=== PATIENT | male | born 1960 | race Caucasian/White ===

== ENCOUNTER 2020-12-16 17:32 | Inpatient (IN) ==
--- NOTE | 2020-12-16 17:48 | Emergency Department Note ---
Impression & Plan Sepsis, Cellulitis, Acute hypokalemia, Hyponatremia ED Provider Note NAME: ANNA FLETCHER AGE: 60 SEX: M : 1960 ARRIVES VIA: Walk-In INFORMANT: Patient, ED PROVIDER(S): Gilberto Dunn MD Chief Complaint: Rash HPI: Patient does present with a leg rash which is been ongoing but somewhat intermittent since the beginning of the year. The patient has noticed some pain but was concerned as it had been persistent. The patient does have a power of personal injury attorney who is present. The patient has no known medical history but does have history of intellectual disability. Patient states he was applying Arora butter to the area but without much improvement in symptoms. The patient does occasionally take aspirin for discomfort. The patient denies any recent falls or trauma. Patient denies any fevers or chills. The patient denies any itchiness or changes in creams detergents or other items that he thinks would be causing an allergic reaction. Patient has no shortness of breath or chest pains. Patient does feel as though the left leg is slightly bigger than the right. The patient denies any history of DVT or PE. ROS: See HPI for pertinent positives and negatives. A total of 10 systems were reviewed and otherwise negative. Past medical history: See below Surgical history: See below Social history: See below Physical Exam: GENERAL: Mildly ill in appearance, wearing a mask. EYE EXAM: Normal conjunctiva. PERRL, no anisocoria and EOM's grossly intact w/o pain. NECK: Supple, no nuchal rigidity, no adenopathy, non-tender. No signs of meningismus. LUNGS: Clear to auscultation. Normal chest wall mechanics. HEART: Tachycardic and regular, systolic ejection murmur noted. ABDOMEN: Abdomen soft, non-tender, normo-active bowel sounds, no masses, no rebound or guarding. BACK: No CVA TTP. SKIN: Rash as noted below. UPPER EXTREMITIES: Upper extremities are grossly normal. LOWER EXTREMITIES: Left greater than right lower extremity edema with large area of erythematous rash over the lateral aspect of the left leg, blanches, no crepitus or blistering. Significant scaling of the bilateral lower extremities NEURO EXAM: A&O x3, cranial nerves II-XII grossly intact, normal speech, moves all 4 extremities on command w/o issue. Differential diagnoses: Cellulitis, abscess, MRSA infection, DVT, necrotizing fasciitis, dermatitis, drug eruption, allergic reaction, as well as other pathologies. Course: Patient was seen and evaluated the bedside. Full history physical exam was performed. Imaging Studies: Chest X-Ray 12/16/20 18:10 XR chest 1V portable HISTORY: SEPSIS COMPARISON: Chest 05/13/2007. FINDINGS: No pleural effusions. No pneumothorax. There are low lung volumes. There is mild central pulmonary vascular congestion without overt edema. The h eart is mildly enlarged. A 5 mm nodular density within the left upper lobe likely represents a calcified granuloma given the density. No focal lung consolidations to suggest pneumonia. IMPRESSION: Mild central pulmonary vascular congestion without overt edema. No focal lung consolidations to suggest pneumonia. ACT 112: Negative or not required by law. Electronically signed by: Danis Ortega M.D. 12/16/2020 6:33 PM Venous Doppler Study 12/16/20 18:13 LEFT LOWER EXTREMITY VENOUS DOPPLER HISTORY: Left Leg swelling/redness COMPARISON STUDY: None. FINDINGS: Overall, suboptimal evaluation of the left lower extremity to the patient's body habitus. There is normal compressibility, flow, and augmentation within the visualized left lower extremity deep venous system. Of note, the left anterior tibial vein was not visualized due to the patient's positioning. IMPRESSION: No DVT within the visualized left lower extremity. ACT 112: Negative or not required by law. Electronically signed by: Danis Ortega M.D. 12/16/2020 8:47 PM Cardiac monitoring: An order was placed for continuous cardiac monitoring. The monitor shows a rate of 115 with tachycardic and regular rhythm. MDM: Patient was seen due to concern for rash. The patient did have blood work completed was treated empirically with vancomycin and cefepime and did have a DVT ultrasound. Patient is white count of 16 with virtually normal hemoglobin at 13. The patient's platelet count is unremarkable. Patient's kidney function is unremarkable with mild hypokalemia and hyponatremia. Patient did receive initial 500 cc bolus. Glucose is not grossly elevated but is 127. I did see him slightly elevated 2.7 with elevated bilirubin and AST. The patient does not complain of upper abdominal pain. Procalcitonin is elevated Covid negative. Given the patient's lack of prior medical care and poor outpatient follow-up along with significant rash which has been present for months although acutely worsening and concerning for cellulitis I did speak with the on-call hospitalist Dr. Leong. Patient was admitted to the medicine service. Given the patient's leg swelling with associated pulmonary vascular congestion seen and heart murmur the patient was initially only given 500 cc. Patient subsequently was ordered an additional 500 cc bolus given the patient's elevated lactate. Lactate initially 2.8 and repeat was 2. DVT ultrasound was negative. Past Med/Surg History Social History Smoking Status: Never smoker Feels Safe at Home: Yes Allergies Allergies Allergy/AdvReac Type Severity Reaction Status Date / Time Penicillins Allergy Mild Verified 12/16/20 19:03 valsartan Allergy Unknown Unknown Unverified 12/16/20 19:03 Home Meds Home Medications Medication Instructions Recorded Confirmed No Known Home Medications 12/16/20 12/16/20 Results & Data (ED) Vital Signs Vital Signs - 24 hr 12/16/20 17:37 12/16/20 18:10 12/16/20 18:40 Temperature 35.9 C L Temperature Source Temporal Artery Scan Pulse Rate 128 H Pulse Rate from SpO2 Sensor Respiratory Rate 20 20 Respiratory Effort / Characteristics Non-Labored Spontaneous Non-Labored Spontaneous Respiratory Depth Normal Blood Pressure 164/87 H Blood Pressure Mean 112 Blood Pressure Position Sitting Pulse Oximetry 97 98 96 Oxygen Delivery Method Room Air Room Air Room Air Sepsis Recent Fever Within 48 Hours No Sepsis New/Unexplained Change in Mental Status N/A Sepsis Action Taken by Nursing No Action Required 12/16/20 19:10 12/16/20 19:30 12/16/20 19:31 Temperature Temperature Source Pulse Rate 119 H 117 H Pulse Rate from SpO2 Sensor 120 H 117 H Respiratory Rate 27 H 20 26 H Respiratory Effort / Characteristics Non-Labored Non-Labored Respiratory Depth Blood Pressure 197/122 H 149/121 H Blood Pressure Mean 147 130 Blood Pressure Position Pulse Oximetry 96 98 96 Oxygen Delivery Method Room Air Room Air Sepsis Recent Fever Within 48 Hours Sepsis New/Unexplained Change in Mental Status Sepsis Action Taken by Nursing 12/16/20 20:00 12/16/20 20:30 12/16/20 21:00 Temperature Temperature Source Pulse Rate Pulse Rate from SpO2 Sensor Respiratory Rate 18 20 20 Respiratory Effort / Characteristics Non-Labored Non-Labored Non-Labored Respiratory Depth Blood Pressure Blood Pressure Mean Blood Pressure Position Pulse Oximetry 99 98 99 Oxygen Delivery Method Room Air Room Air Room Air Sepsis Recent Fever Within 48 Hours Sepsis New/Unexplained Change in Mental Status Sepsis Action Taken by [facility] Medications Current Medication List: was personally reviewed by me Laboratory Data Attestation: I reviewed the patient's lab results. Result diagrams: 12/16/20 18:46 12/16/20 18:46 Lab Results 12/16/20 12/16/20 12/16/20 Range/Units 18:46 18:46 18:46 WBC 16.09 H (4.8-10.8) K/uL RBC 4.32 L (4.7-6.1) M/uL Hgb 13.3 L (14.0-18.0) g/dL Hct 39.1 L (42-52) % MCV 90.5 (80-100) fL MCH 30.8 (25-34) pg MCHC 34.0 (32-36) g/dL RDW Std Deviation 51.0 H (36.4-46.3) fL RDW Coeff of Analy 15.5 H (11.5-14.5) % Plt Count 203 (130-400) K/uL MPV 10.8 H (7.4-10.4) fL Immature Gran % (Auto) 0.8 % Neut % (Auto) 86.8 % Lymph % (Auto) 7.1 % Morrison % (Auto) 5.0 % Eos % (Auto) 0.1 % Baso % (Auto) 0.2 % Neut # (Auto) 13.97 H (1.4-6.5) K/uL Lymph # (Auto) 1.14 L (1.2-3.4) K/uL Morrison # (Auto) 0.81 H (0.11-0.59) K/uL Eos # (Auto) 0.01 (0-0.5) K/uL Baso # (Auto) 0.03 (0-0.2) K/uL Immature Gran # (Auto) 0.13 H (0.00-0.02) K/uL PT (9.0-12.0) Seconds INR (0.9-1.1) APTT (21.0-31.0) Seconds PTT Ratio Sodium 131 L (136-145) mmol/L Potassium 2.9 L (3.5-5.1) mmol/L Chloride 95 L (98-107) mmol/L Carbon Dioxide 26 (21-32) mmol/L Anion Gap 10.0 (3-11) BUN 15 (7-18) mg/dl Creatinine 0.88 (0.6-1.4) mg/dl Est Cr Clr Drug Dosing Not Reportable Est GFR ( Amer) 108.2 ml/min Est GFR (Non-Af Amer) 93.4 ml/min BUN/Creatinine Ratio 17.6 (10-20) Glucose 127 H (70-99) mg/dl Lactate (0.4-2.0) mmol/L Calcium 9.1 (8.5-10.1) mg/dl Magnesium 2.7 H (1.8-2.4) mg/dl Total Bilirubin 1.4 H (0.2-1) mg/dl AST 55 H (15-37) U/L ALT 48 (12-78) U/L Alkaline Phosphatase 97 (45-117) U/L Troponin I < 0.015 (0-0.045) ng/ml Total Protein 8.2 (6.4-8.2) gm/dl Albumin 2.9 L (3.4-5.0) gm/dl Globulin 5.3 H (2.5-4.0) gm/dl Albumin/Globulin Ratio 0.5 L (0.9-2) Procalcitonin 2.30 H (0-0.5) ng/ml COVID-19 Eval Order SARS-CoV-2 (PCR) (Negative) 12/16/20 12/16/20 12/16/20 Range/Units 18:46 18:46 19:18 WBC (4.8-10.8) K/uL RBC (4.7-6.1) M/uL Hgb (14.0-18.0) g/dL Hct (42-52) % MCV (80-100) fL MCH (25-34) pg MCHC (32-36) g/dL RDW Std Deviation (36.4-46.3) fL RDW Coeff of Analy (11.5-14.5) % Plt Count (130-400) K/uL MPV (7.4-10.4) fL Immature Gran % (Auto) % Neut % (Auto) % Lymph % (Auto) % Morrison % (Auto) % Eos % (Auto) % Baso % (Auto) % Neut # (Auto) (1.4-6.5) K/uL Lymph # (Auto) (1.2-3.4) K/uL Morrison # (Auto) (0.11-0.59) K/uL Eos # (Auto) (0-0.5) K/uL Baso # (Auto) (0-0.2) K/uL Immature Gran # (Auto) (0.00-0.02) K/uL PT 11.9 (9.0-12.0) Seconds INR 1.2 H (0.9-1.1) APTT 29.3 (21.0-31.0) Seconds PTT Ratio 1.1 Sodium (136-145) mmol/L Potassium (3.5-5.1) mmol/L Chloride (98-107) mmol/L Carbon Dioxide (21-32) mmol/L Anion Gap (3-11) BUN (7-18) mg/dl Creatinine (0.6-1.4) mg/dl Est Cr Clr Drug Dosing Est GFR ( Amer) ml/min Est GFR (Non-Af Amer) ml/min BUN/Creatinine Ratio (10-20) Glucose (70-99) mg/dl Lactate 2.8 H* (0.4-2.0) mmol/L Calcium (8.5-10.1) mg/dl Magnesium (1.8-2.4) mg/dl Total Bilirubin (0.2-1) mg/dl AST (15-37) U/L ALT (12-78) U/L Alkaline Phosphatase (45-117) U/L Troponin I (0-0.045) ng/ml Total Protein (6.4-8.2) gm/dl Albumin (3.4-5.0) gm/dl Globulin (2.5-4.0) gm/dl Albumin/Globulin Ratio (0.9-2) Procalcitonin (0-0.5) ng/ml COVID-19 Eval Order Covid19 at [facility] SARS-CoV-2 (PCR) (Negative) 12/16/20 12/16/20 Range/Units 19:18 21:08 WBC (4.8-10.8) K/uL RBC (4.7-6.1) M/uL Hgb (14.0-18.0) g/dL Hct (42-52) % MCV (80-100) fL MCH (25-34) pg MCHC (32-36) g/dL RDW Std Deviation (36.4-46.3) fL RDW Coeff of Analy (11.5-14.5) % Plt Count (130-400) K/uL MPV (7.4-10.4) fL Immature Gran % (Auto) % Neut % (Auto) % Lymph % (Auto) % Morrison % (Auto) % Eos % (Auto) % Baso % (Auto) % Neut # (Auto) (1.4-6.5) K/uL Lymph # (Auto) (1.2-3.4) K/uL Morrison # (Auto) (0.11-0.59) K/uL Eos # (Auto) (0-0.5) K/uL Baso # (Auto) (0-0.2) K/uL Immature Gran # (Auto) (0.00-0.02) K/uL PT (9.0-12.0) Seconds INR (0.9-1.1) APTT (21.0-31.0) Seconds PTT Ratio Sodium (136-145) mmol/L Potassium (3.5-5.1) mmol/L Chloride (98-107) mmol/L Carbon Dioxide (21-32) mmol/L Anion Gap (3-11) BUN (7-18) mg/dl Creatinine (0.6-1.4) mg/dl Est Cr Clr Drug Dosing Est GFR ( Amer) ml/min Est GFR (Non-Af Amer) ml/min BUN/Creatinine Ratio (10-20) Glucose (70-99) mg/dl Lactate 2.0 (0.4-2.0) mmol/L Calcium (8.5-10.1) mg/dl Magnesium (1.8-2.4) mg/dl Total Bilirubin (0.2-1) mg/dl AST (15-37) U/L ALT (12-78) U/L Alkaline Phosphatase (45-117) U/L Troponin I (0-0.045) ng/ml Total Protein (6.4-8.2) gm/dl Albumin (3.4-5.0) gm/dl Globulin (2.5-4.0) gm/dl Albumin/Globulin Ratio (0.9-2) Procalcitonin (0-0.5) ng/ml COVID-19 Eval Order SARS-CoV-2 (PCR) NEGATIVE (Negative) Administered Medications Discontinued Medications Cefepime HCl (Maxipime) 2,000 mg in 20 mls @ 5 mls/min IV NOW STA; Protocol Stop: 12/16/20 18:12 Last Admin: 12/16/20 19:15 Dose: 5 mls/min Documented by: [id number] Vancomycin HCl 2,750 mg/ (Sodium Chloride) 555 mls @ 200 mls/hr IV NOW ONE Stop: 12/16/20 20:55 Last Admin: 12/16/20 19:31 Dose: 200 mls/hr Documented by: [id number] Infusion: 12/16/20 19:31 Dose: 0 mls/hr Documented by: [id number] Admin: 12/16/20 19:30 Dose: 200 mls/hr Documented by: [id number] Sodium Chloride (Nss 1000ml) 500 mls @ 999 mls/hr IV .Q31M ONE Stop: 12/16/20 18:43 Last Infusion: 12/16/20 19:31 Dose: 999 mls/hr Documented by: [id number] Admin: 12/16/20 19:00 Dose: 999 mls/hr Documented by: [id number] Sodium Chloride (Nss 1000ml) 500 mls @ 999 mls/hr IV .Q31M ONE Stop: 12/16/20 20:09 Last Admin: 12/16/20 21:05 Dose: 999 mls/hr Documented by: [id number] Imaging Data Radiologist's Impression: Chest X-Ray 12/16/20 18:10 XR chest 1V portable HISTORY: SEPSIS COMPARISON: Chest 05/13/2007. FINDINGS: No pleural effusions. No pneumothorax. There are low lung volumes. There is mild central pulmonary vascular congestion without overt edema. The hea rt is mildly enlarged. A 5 mm nodular density within the left upper lobe likely represents a calcified granuloma given the density. No focal lung consolidations to suggest pneumonia. IMPRESSION: Mild central pulmonary vascular congestion without overt edema. No focal lung consolidations to suggest pneumonia. ACT 112: Negative or not required by law. Electronically signed by: Danis Ortega M.D. 12/16/2020 6:33 PM Venous Doppler Study 12/16/20 18:13 LEFT LOWER EXTREMITY VENOUS DOPPLER HISTORY: Left Leg swelling/redness COMPARISON STUDY: None. FINDINGS: Overall, suboptimal evaluation of the left lower extremity to the patient's body habitus. There is normal compressibility, flow, and augmentation within the visualized left lower extremity deep venous system. Of note, the left anterior tibial vein was not visualized due to the patient's positioning. IMPRESSION: No DVT within the visualized left lower extremity. ACT 112: Negative or not required by law. Electronically signed by: Danis Ortega M.D. 12/16/2020 8:47 PM Discharge Plan Visit Data Chief Complaint: Swelling/Edema to Extremity Stated Complaint: L & R LEG SWELLING ED Provider: Gilberto Dunn Discharge Problem: Sepsis, Cellulitis, Acute hypokalemia, Hyponatremia Patient Disposition: Admitted As Inpatient Forms [facility] Prescriptions Prescriptions: No Action No Known Home Medications RF: 0 Referrals Referrals: PCP,NO [Primary Care Provider] -
[2020-12-16] MEDS ORDERED: VANCOMYCIN CONSULT ACTIVE PRN (18:09)
[2020-12-16] MEDS ORDERED: CEFEPIME 2,000 MG/20 ML VIAL IV STA (18:09)
[2020-12-16] MEDS ORDERED: SODIUM CHLORIDE 0.9% 1000ML 500 ML IV ONE ×2 (18:13→19:39)
--- NOTE | 2020-12-16 18:34 | XRay Report ---
XR chest 1V portable HISTORY: SEPSIS COMPARISON: Chest 05/13/2007. FINDINGS: No pleural effusions. No pneumothorax. There are low lung volumes. There is mild central pu lmonary vascular congestion without overt edema. The heart is mildly enlarged. A 5 mm nodular density within the left upper lobe likely represents a calcified granuloma given the density. No focal lung consolidations to suggest pneumonia. IMPRESSION: Mild central pulmonary vascular congestion without overt edema. No focal lung consolidations to sugge st pneumonia. ACT 112: Negative or not required by law. Electronically signed by: Danis Ortega M.D. 12/16/2020 6:33 PM
[2020-12-16 18:58] LABS: Basophils # (auto) 0.03 K/uL (0-0.2); Basophils % (auto) 0.2 %; Eosinophils # (auto) 0.01 K/uL (0-0.5); Eosinophils % (auto) 0.1 %; Hematocrit (blood only) 39.1 % (42-52); Hemoglobin 13.3 g/dL (14.0-18.0); Immature Granulocytes # (auto) 0.13 K/uL (0.00-0.02); Immature Granulocytes % (auto) 0.8 %; Lymphocytes # (auto) 1.14 K/uL (1.2-3.4); Lymphocytes % (auto) 7.1 %; Mean Corpuscular Hemoglobin 30.8 pg (25-34); Mean Corpuscular Volume 90.5 fL (80-100); Mean Platelet Volume 10.8 fL (7.4-10.4); Monocytes # (auto) 0.81 K/uL (0.11-0.59); Neutrophils # (auto) 13.97 K/uL (1.4-6.5); Neutrophils % (auto) 86.8 %; Platelet Count 203 K/uL (130-400); RDW Coefficient of Variation 15.5 % (11.5-14.5); Red Blood Count 4.32 M/uL (4.7-6.1); White Blood Count 16.09 K/uL (4.8-10.8)
[2020-12-16 19:09] LABS: INR 1.2 (0.9-1.1); Partial Thromboplastin Ratio 1.1; Partial Thromboplastin Time 29.3 Seconds (21.0-31.0); Prothrombin Time 11.9 Seconds (9.0-12.0)
[2020-12-16 19:15] LABS: Alanine Aminotransferase 48 U/L (12-78); Albumin Level 2.9 gm/dl (3.4-5.0); Aspartate Aminotransferase 55 U/L (15-37); BUN Creatinine Ratio 17.6 (10-20); Blood Urea Nitrogen 15 mg/dl (7-18); Calcium 9.1 mg/dl (8.5-10.1); Carbon Dioxide 26 mmol/L (21-32); Chloride 95 mmol/L (98-107); Est GFR (African American) 108.2 ml/min; Est GFR (Non-African American) 93.4 ml/min; Glucose 127 mg/dl (70-99); Magnesium 2.7 mg/dl (1.8-2.4); Potassium 2.9 mmol/L (3.5-5.1); Sodium 131 mmol/L (136-145)
[2020-12-16 19:20] LABS: Albumin Globulin Ratio 0.5 (0.9-2); Alkaline Phosphatase 97 U/L (45-117); Bilirubin,Total 1.4 mg/dl (0.2-1); Globulin 5.3 gm/dl (2.5-4.0); Total Protein 8.2 gm/dl (6.4-8.2); Troponin I < 0.015 ng/ml (0-0.045)
[2020-12-16] MEDS: VANCOMYCIN HCL 2,750 MG in SODIUM CHLORIDE 0.9% 500 ML IV ONE ×2 (19:30→19:31)
--- NOTE | 2020-12-16 20:49 | Ultrasound Report ---
LEFT LOWER EXTREMITY VENOUS DOPPLER HISTORY: Left Leg swelling/redness COMPARISON STUDY: None. FINDINGS: Overall, suboptimal evaluation of the left lower extremity to the patient's body habitus. T here is normal compressibility, flow, and augmentation within the visualized left lower extremity jailene p venous system. Of note, the left anterior tibial vein was not visualized due to the patient's posit ioning. IMPRESSION: No DVT within the visualized left lower extremity. ACT 112: Negative or not required by law. Electronically signed by: Danis Ortega M.D. 12/16/2020 8:47 PM
[2020-12-16] MEDS ORDERED: POTASSIUM CHLORIDE CRTAB 20 MEQ TABCR PO STA (21:49)
[2020-12-16] MEDS ORDERED: POTASSIUM CHLORIDE / WTR 10 MEQ/100 ML PLCT IV STA (21:49)
[2020-12-16] MEDS ORDERED: LABETALOL HCL IV 5 MG/ML 20ML IV PRN (22:35)
[2020-12-16] MEDS ORDERED: NITROGLYCERIN SL 0.4 MG/TAB TAB SL PRN (22:35)
[2020-12-16] MEDS ORDERED: MEROPENEM CONSULT ACITVE PRN (22:35)
[2020-12-16] MEDS ORDERED: ONDANSETRON INJ 2 MG/ML 2 ML VIAL IV PRN (22:35)
[2020-12-16] MEDS ORDERED: POLYETHYLENE (MIRALAX) 17 GM PACK PO PRN (22:35)
[2020-12-16] MEDS ORDERED: ACETAMINOPHEN 325 MG TAB PO PRN (22:35)
--- NOTE | 2020-12-16 22:51 | History and Physical Report ---
DATE OF ADMISSION: 12/16/2020. CHIEF COMPLAINT: Lower extremity cellulitis and edema. HISTORY OF PRESENT ILLNESS: This is a 60-year-old male with past medical history significant for hypertension, GERD, history of painless jaundice thought to be from biliary strictures, currently not on any medications, supposed to follow up with GI for any abdominal/pancreatic mass, but he never followed up. He lives alone, ambulates okay. Friend is in the room who is the power of corporate attorney. The patient has mild intellectual disabilities, presents with lower extremity edema and erythema and some drainage in the left lower extremity. As per the power of corporate attorney, he was in the grocery store when they called the ambulance and called her, and the patient refused to go at the time the patient went home and she brought him in here. The patient denies any pain, but says some feeling of sunburn in the lower extremity. Resting comfortably. Denies any headache, denies any neck pain. No back pain, no abdominal pain, no chest pain, denies any cough. Denies any fevers. No nausea. Says his bowels are regular. No diarrhea, constipation, or blood in the stools. Normal bladder movements. Denies any blurred visions or earache or runny nose, no sore throat. Says his appetite is okay, he is eating and swallowing okay. No shortness of breath. No smoking, no alcohol as per the power of corporate attorney. ALLERGIES: PENICILLINS, VALSARTAN. PAST MEDICAL HISTORY: As mentioned above. PAST SURGICAL HISTORY: ERCPs, EGD with endoscopic ultrasound, tonsillectomy. MEDICATIONS: Currently none. FAMILY HISTORY: Father had bladder cancer; mother had heart disorder. SOCIAL HISTORY: Currently single. No smoking, no alcohol, no drug use. REVIEW OF SYSTEMS: As per HPI. Rest of the review of systems is negative. PHYSICAL EXAMINATION: GENERAL: The patient is morbidly obese, not in acute distress. VITAL SIGNS: Temperature 35.9, pulse 117, blood pressure 149/121, respiratory rate 20, and oxygen 98% on room air. HEENT: Pupils equal, round and reactive to light. Oral mucosa moist. NECK: No JVD, no neck masses. CARDIOVASCULAR: S1 and S2 heard. Tachycardia. No murmurs, no gallop. RESPIRATORY SYSTEM: Normal AP diameter. No accessory muscle use. No wheezing, no crackles. ABDOMEN: Soft, bowel sounds present, nontender, no distention. CENTRAL NERVOUS SYSTEM: Alert and oriented. Cranial nerves II-XII grossly intact, nonfocal. EXTREMITIES: Bilateral lower extremity gross edema and erythematous changes and chronic skin changes and somewhat foul smelling and long nails seen. LABORATORY DATA: WBC 16.09, hemoglobin 13.3, hematocrit 39.1, platelets 203. PT 11.9, INR 1.2, APTT 29.3. Sodium 131, potassium 2.9, chloride 95,bicarbonate 26, BUN 15, creatinine 0.8, serum glucose 127. Lactate 2, calcium 9.1, magnesium 2.7, total bilirubin 1.4, AST 55, ALT 48, alkaline phosphatase 97. Troponin I less than 0.015. Procalcitonin 2.3. SARS-CoV-2 PCR negative. IMAGING DATA: Venous Doppler, no DVT. Chest x-ray: Mild central pulmonary vascular congestion without overt edema, no focal lung consolidation/pneumonia. ASSESSMENT AND PLAN: This is a 60-year-old male who presents with lower extremity cellulitis and infection. 1. Lower extremity cellulitis and infection: Possible sepsis with leukocytosis and tachycardia Some mild drainage seen. Chronic skin changes possibly from lymphedema. Empirically starting on antibiotics, IV vancomycin and IV meropenem as the patient is allergic to PENICILLINS. Follow the cultures. Gentle fluids. Follow the response. 2. Chronic lower extremity edema: No deep venous thrombosis on ultrasound. We will follow with echocardiogram to rule out any congestive heart failure as the patient has hypertension, not taking any medications. 3. Hypertension: Not taking any medications currently. We will place him on IV labetalol p.r.n. Monitor. Follow echocardiogram. 4. Elevated bilirubin, history of painless jaundice thought to be from biliary strictures: At that time, biopsy was okay .Didn't followed up. We will get a CT of abdomen and pelvis. 5. Hypokalemia: We will replace. 6. Hyponatremia: Will get gentle fluids. Follow the repeat laboratories. 7. Deep venous thrombosis prophylaxis: Placed on Lovenox. DISPOSITION: Closely monitor in the med tele. PT/OT prior to discharge. Social service to help with discharge planning. Level 1 full code. Expect to discharge home and follow with family doctor. Job ID: [id number] [facility]
[2020-12-16] MEDS ORDERED: OPTIRAY 320 125ml IV ONE (23:06)
[2020-12-17] MEDS: ENOXAPARIN INJ 40 MG/0.4 ML SYR SQ SCH ×4 (00:03→21:32)
[2020-12-17] MEDS: SODIUM CHLORIDE 0.9% 1000ML 1,000 ML IV SCH ×2 (00:03→09:39)
[2020-12-17] MEDS: MEROPENEM 500 MG in SYRINGE 0 ML IV SCH ×4 (00:04→17:46)
[2020-12-17] MEDS: POTASSIUM CHLORIDE / WTR 10 MEQ/100 ML PLCT IV SCH ×3 (00:28→02:25)
[2020-12-17] MEDS: DAPTOmycin 625 MG in SYRINGE 0 ML IV SCH (06:29)
[2020-12-17 08:02] LABS: Basophils # (auto) 0.01 K/uL (0-0.2); Basophils % (auto) 0.1 %; Eosinophils # (auto) 0.01 K/uL (0-0.5); Eosinophils % (auto) 0.1 %; Hematocrit (blood only) 36.3 % (42-52); Hemoglobin 12.1 g/dL (14.0-18.0); Immature Granulocytes # (auto) 0.12 K/uL (0.00-0.02); Immature Granulocytes % (auto) 0.9 %; Lymphocytes # (auto) 0.93 K/uL (1.2-3.4); Lymphocytes % (auto) 6.8 %; Mean Corpuscular Hemoglobin 29.9 pg (25-34); Mean Corpuscular Hgb Conc 33.3 g/dL (32-36); Mean Corpuscular Volume 89.6 fL (80-100); Mean Platelet Volume 11.1 fL (7.4-10.4); Monocytes # (auto) 0.61 K/uL (0.11-0.59); Monocytes % (auto) 4.5 %; Neutrophils # (auto) 11.92 K/uL (1.4-6.5); Neutrophils % (auto) 87.6 %; Platelet Count 211 K/uL (130-400); RDW Coefficient of Variation 15.8 % (11.5-14.5); RDW Standard Deviation 50.9 fL (36.4-46.3); Red Blood Count 4.05 M/uL (4.7-6.1)
[2020-12-17] MEDS ORDERED: Nursing to Pharmacy Communication SCH (08:30)
[2020-12-17 08:38] LABS: Albumin Level 2.3 gm/dl (3.4-5.0); BUN Creatinine Ratio 20.9 (10-20); Calcium 8.4 mg/dl (8.5-10.1); Creatinine Clr Calc Pharmacy 178.9 ml/min; Est GFR (African American) 123.3 ml/min; Est GFR (Non-African American) 106.4 ml/min; Magnesium 2.6 mg/dl (1.8-2.4); Potassium 2.9 mmol/L (3.5-5.1)
[2020-12-17 08:49] LABS: Albumin Globulin Ratio 0.5 (0.9-2); Bilirubin,Total 1.1 mg/dl (0.2-1); Globulin 4.5 gm/dl (2.5-4.0); Total Protein 6.8 gm/dl (6.4-8.2)
--- NOTE | 2020-12-17 08:49 | CT Scan Report ---
CT abd pelvis IV con only CLINICAL HISTORY: elevated bilirubin. rule out pancreatic mass COMPARISON STUDY: April 10, 2008 TECHNIQUE: A dose lowering technique was utilized adhering to the principles of ALARA. CT DOSE: 2039.63 mGy.cm FINDINGS: Lower chest: Mild atelectasis is seen at dependent portions of bilateral lower lobes.. Liver: Liver is enlarged with diffuse decrease in attenuation of its parenchyma. No definite focal l esions are seen however evaluation is limited due to beam hardening artifact from patient's body habi tus and close proximity of the right lateral abdominal wall to gantry of the CT SCAN. Mild pneumobilia seen in nondependent/left lobe of the liver. Extension of the gas is seen to the com mon bile duct. Similar pneumobilia was also seen during prior study performed in April 10, 2008. Gallbladder: Is poorly seen, possibly surgically absent. Spleen: Normal in size and attenuation. Pancreas: Unremarkable. Adrenal glands: Unremarkable. Kidneys: There is symmetric renal cortical enhancement. The kidneys are normal in size without hydron ephrosis. Pelvic viscera: Urinary bladder is adequately filled with urine. Prostate gland is not significantly enlarged. Small bilateral fat-containing inguinal hernias are seen. Bowel: Bowel loops are nondilated. Appendix is slightly dilated, measuring 8 mm in diameter and show no evidence of surrounding inflammatory changes. Findings are similar to prior study. Peritoneum: There is no intraperitoneal free air or abdominal ascites. Vasculature: Abdominal aorta is normal in caliber with scattered calcifications of its wall. Adenopathy: Multiple retroperitoneal lymph nodes are seen measuring up to 2.4 cm in diameter (3/291). No significant mesenteric lymphadenopathy seen. There are also prominent inguinal lymph nodes measuring up to 1.7 cm in short axis. Skeletal structures: Mild multilevel degenerative changes of the spine. No definite aggressive osseou s lesions are seen. IMPRESSION: 1. Hepatomegaly and hepatic steatosis. Pneumobilia was also seen during CT of abdomen performed in 2 008. Gallbladder is not definitely seen, could be surgically absent. 2. No pancreatic mass is seen however there are multiple prominent retroperitoneal lymph nodes. Few slightly enlarged inguinal lymph nodes are seen. Above-mentioned findings might be seen in neoplastic process. No definite intra-abdominal mass lesion is demonstrated. 3. Slightly dilated appendix without inflammatory changes, appears similar to prior study in 2007, c ould represent sequela from prior inflammatory process versus other etiology ACT 112: Negative or not required by law. The above report was generated using voice recognition software. It may contain grammatical, syntax o r spelling errors. Electronically signed by: Margoth Mayo DO 12/17/2020 8:47 AM
[2020-12-17] MEDS ORDERED: POTASSIUM CHLORIDE CRTAB 20 MEQ TABCR PO ONE (10:00)
[2020-12-17] MEDS ORDERED: MICONAZOLE NITRATE POWDER 43 GM EXT PRN (11:02)
[2020-12-17 11:25] LABS: Appearance Urine Clear (Clear); Bacteria Urine Automated Negative (Negative); Blood Urine Negative (Negative); Color Urine Dark Yellow; Epithelial Cell Urine Auto 20-30 /lpf (0-5); Glucose Urine UA Negative (Negative); Ketones Urine 2+ (Negative); Leukocyte Esterase Urine Negative (Negative); Nitrite Urine Negative (Negative); Protein Urine 1+ (Negative); RBC Urine Automated 0-4 /hpf (0-4); Specific Gravity Urine 1.024 (1.000-1.030); Urobilinogen Urine Negative (Negative); pH Urine 5.5 (4.5-7.5)
[2020-12-17 11:40] LABS: Bilirubin Urine 1+ (Negative)
[2020-12-17] MEDS ORDERED: ENOXAPARIN INJ 40 MG/0.4 ML SYR SQ SCH (12:00)
--- NOTE | 2020-12-17 15:26 | Hospitalist Progress Note ---
Date of Service December 17, 2020 Assessment & Plan (1) Cellulitis: Plan: ASSESSMENT AND PLAN: This is a 60-year-old male who presents with lower extremity cellulitis and infection. 1. Lower extremity cellulitis and infection: -- Possible sepsis with leukocytosis and tachycardia -- Chronic skin changes possibly from lymphedema. --Lactic acid normalized DC IV fluids in light of suspicion for valvular CHF --Follow-up blood culture and wound culture --Continue IV vancomycin and imipenem Start Lasix 40 mg IV daily Caution with diuresis secondary to possible valvular CHF although echocardiogram was technically limited study EF 60 to 65% 2. Chronic lower extremity edema: No deep venous thrombosis on ultrasound. Possible valvular CHF --Patient has grade 2 through 3 holosystolic murmur Echocardiogram technically limited study, EF 60 to 65% --Lasix 40 mg IV daily started 3. Hypertension: Not taking any medications currently. --As needed IV labetalol 4. Elevated bilirubin, history of painless jaundice thought to be from biliary strictures -- CT abdomen: 1. Hepatomegaly and hepatic steatosis. Pneumobilia was also seen during CT of abdomen performed in 2007. Gallbladder is not definitely seen, could be surgically absent. 2. No pancreatic mass is seen however there are multiple prominent retroperitoneal lymph nodes. Few slightly enlarged inguinal lymph nodes are seen. Above-mentioned findings might be seen in neoplastic process. No definite intra-abdominal mass lesion is demonstrated. 3. Slightly dilated appendix without inflammatory changes, appears similar to prior study in 2008, could represent sequela from prior inflammatory process versus other etiology -- bilirubin, AST improving -- will consult hematology 5. Hypokalemia: -- PO K 40meq BID 6. Hyponatremia: -- resolved dc IV NSS 7. Deep venous thrombosis prophylaxis: Placed on Lovenox. Disposition pending lives alone may need Rehab, SNF Admission and Anticipated Discharge Date Admission Date: December 16, 2020 Subjective Follow-up for bilateral lower extremity edema, cellulitis, etc. Seen resting in bedside chair, not in distress, comfortable States leg pain is improving Denies fevers or chills No shortness of breath, palpitations, dizziness next No other symptoms Review of Systems Review of Systems: all noted and negative except for above Physical Exam Physical Exam: General- oriented x 3, not in distress, speaks in sentences with no effort or accessory muscle use Morbidly obese Head- atraumatic Eyes- PERRL, EOMI, anicteric ENT- oropharynx clear Neck- supple, no JVD, no adenopathy, no thyromegaly; carotids +2/2, no bruits appreciated Lungs- clear to auscultation bilaterally, no rales/wheezes Heart- normal rate, regular rhythm; positive grade 2 through 3 holosystolic murmur, no gallop, no rub appreciated Abdomen- normal bowel sounds, nondistended, soft, nontender, no masses or hepatosplenomegaly Extremities-positive significant bilateral lower extremity edema with erythema and warmth, left greater than the right, no calf tenderness; peripheral pulses intact Neuro- alert, oriented x 3; CN 2-12 grossly intact; motor 5/5 bilaterally;sensation 100% on all extremities; no other gross focal neurologic deficits Skin- warm & dry Results & Data Results & Data ([facility]) Vital Signs (Past 12 Hours) Vital Signs Temp Pulse Pulse Resp BP BP Pulse Ox 12/17/20 15:00 37.0 C 104 H 22 138/96 94 12/17/20 14:19 98 H 12/17/20 11:50 36.4 C L 105 H 22 156/83 H 96 12/17/20 07:26 105 H 12/17/20 07:00 37.1 C 95 H 20 130/77 90 all noted and reviewed including below (1) Cellulitis Laterality: left Site of cellulitis: extremity Site of cellulitis of extremity: lower extremity Qualified Code(s): L03.116 - Cellulitis of left lower limb
[2020-12-17] MEDS: POTASSIUM CHLORIDE CRTAB 20 MEQ TABCR PO SCH (16:24)
[2020-12-17] MEDS: FUROSEMIDE 40 MG in SYRINGE 0 ML IV SCH (16:49)
[2020-12-17] MEDS ORDERED: FUROSEMIDE 40 MG in SYRINGE 0 ML IV SCH (17:00)
[2020-12-18] MEDS: MEROPENEM 500 MG in SYRINGE 0 ML IV SCH ×4 (00:58→17:17)
[2020-12-18] MEDS: DAPTOmycin 625 MG in SYRINGE 0 ML IV SCH (05:14)
--- NOTE | 2020-12-18 05:34 | Electrocardiogram Report ---
Test Reason : Blood Pressure : / mmHG Vent. Rate : 121 BPM Atrial Rate : 121 BPM P-R Int : 170 ms QRS Dur : 084 ms QT Int : 320 ms P-R-T Axes : 078 023 088 degrees QTc Int : 454 ms Sinus tachycardia Nonspecific ST and T wave abnormality Abnormal ECG When compared with ECG of 13-MAY-2007 18:03, Vent. rate has increased BY 42 BPM Minimal criteria for Septal infarct are no longer Present ST now depressed in Lateral leads T wave inversion now evident in Lateral leads Confirmed by Manny Jones ([id number]) on 12/18/2020 5:34:14 AM Referred By: REFERRED SELF Confirmed By:Manny Jones
[2020-12-18 06:52] LABS: Basophils # (auto) 0.04 K/uL (0-0.2); Basophils % (auto) 0.4 %; Eosinophils # (auto) 0.09 K/uL (0-0.5); Eosinophils % (auto) 0.9 %; Hematocrit (blood only) 38.7 % (42-52); Hemoglobin 12.9 g/dL (14.0-18.0); Immature Granulocytes # (auto) 0.25 K/uL (0.00-0.02); Immature Granulocytes % (auto) 2.4 %; Lymphocytes # (auto) 1.46 K/uL (1.2-3.4); Lymphocytes % (auto) 13.8 %; Mean Corpuscular Hemoglobin 30.2 pg (25-34); Mean Corpuscular Hgb Conc 33.3 g/dL (32-36); Mean Corpuscular Volume 90.6 fL (80-100); Mean Platelet Volume 11.2 fL (7.4-10.4); Monocytes # (auto) 0.59 K/uL (0.11-0.59); Monocytes % (auto) 5.6 %; Neutrophils # (auto) 8.13 K/uL (1.4-6.5); Neutrophils % (auto) 76.9 %; Platelet Count 270 K/uL (130-400); RDW Coefficient of Variation 16.3 % (11.5-14.5); RDW Standard Deviation 53.3 fL (36.4-46.3); Red Blood Count 4.27 M/uL (4.7-6.1); White Blood Count 10.56 K/uL (4.8-10.8)
[2020-12-18 07:28] LABS: BUN Creatinine Ratio 23.1 (10-20); Calcium 8.6 mg/dl (8.5-10.1); Creatinine Clr Calc Pharmacy 146.7 ml/min; Est GFR (African American) 114.3 ml/min; Est GFR (Non-African American) 98.6 ml/min; Potassium 2.9 mmol/L (3.5-5.1)
[2020-12-18] MEDS: FUROSEMIDE 40 MG in SYRINGE 0 ML IV SCH (08:49)
[2020-12-18] MEDS: POTASSIUM CHLORIDE CRTAB 20 MEQ TABCR PO SCH ×3 (08:49→20:47)
[2020-12-18] MEDS: AMMONIUM LACTATE 12% LOTION 225 GM BTL EXT SCH ×2 (08:51→20:47)
[2020-12-18] MEDS: ENOXAPARIN INJ 40 MG/0.4 ML SYR SQ SCH ×2 (10:05→22:16)
--- NOTE | 2020-12-18 10:34 | Consultation Report ---
MEDICAL ONCOLOGY CONSULTATION DATE OF SERVICE: 12/18/2020 REASON FOR CONSULTATION: Retroperitoneal lymphadenopathy seen on CT scan. HISTORY OF PRESENT ILLNESS: Mr. Lam is a morbidly obese, intellectually challenged 60-year-old who was admitted to [facility] on 12/16/2020. The patient himself is not very com municative, has difficulty with putting words together and clearly unable to provide a comprehensive history. What he does relate is his left lower extremity was painful and swollen. He described it a s felt a sunburn-like sensation. Apparently, he lives alone, has a friend who is his medical power o f commercial attorney. The patient apparently was in a grocery store when he had voiced these concerns with his medical power of commercial attorney who tried to get him to go to hospital; however, the patient refused to go . The patient subsequently went home and on the insistence of the medical POA was brought back to [facility] for evaluation and management. He is currently on vancomycin obviously. Radiographic studies, particularly CT scan of the abdomen and pelvis revealed hepatomegaly and hepati c steatosis. No pancreatic mass was seen. However, there were multiple prominent retroperitoneal ly mph nodes, few slightly enlarged inguinal lymph nodes as seen. Generally speaking, Mr. Lam den ies B symptoms, particularly denies lack of appetite and again is a pickwickian by body habitus. PAST MEDICAL HISTORY: Significant for hypertension and gastroesophageal reflux, painless jaundice -- thought to be attributable to biliary strictures. PAST SURGICAL HISTORY: ERCP, EGD with endoscopic ultrasound and tonsillectomy. MEDICATIONS: None. ALLERGIES: PENICILLINS AND VALSARTAN. SOCIAL HISTORY: The patient apparently lives with another individual. He is single. Negative for c igarettes, alcohol, or illicit drug use. FAMILY HISTORY: Father with bladder cancer. Mother apparently suffers from heart disease. REVIEW OF SYSTEMS: Really unobtainable. The patient relates his lower extremity pain more so on the left, preliminary diagnosis of cellulitis, currently on antibiotics. PHYSICAL EXAMINATION: GENERAL: Again, jose angel, a 60-year-old gentleman, awake, alert, in no acute distress. VITAL SIGNS: Temperature 36.7, pulse 107, respiratory rate 22, blood pressure 121/82. SKIN: Stasis dermatitis changes in the lower extremities from the knee to the ankle. Slightly more e rythema on the left greater than right. HEENT: Atraumatic, normocephalic. Nares patent without rhinorrhea or discharge. Throat is clear. Tongue midline. Mucous membranes are intact. NECK: Supple. HEART: Regular rate and rhythm. LUNGS: Clear to auscultation bilaterally. ABDOMEN: Obese, soft, nontender, nondistended. No rigidity or guarding. EXTREMITIES: 1-2+ peripheral edema. Again, stasis dermatitis changes in bilateral lower extremities . NEUROLOGIC: He is awake, alert and oriented. LABORATORY DATA: WBC count 10,560, hemoglobin 12.9, platelet count 270,000. Magnesium 2.6, bilirubi n 1.1, AST 40, albumin 2.3. IMPRESSION: 1. Left lower extremity cellulitis. 2. Retroperitoneal lymphadenopathy, etiology unclear. 3. Chronic lower extremity edema. 4. Hypertension. PLAN: Mr. Lam is a very pleasant, pickwickian 60-year-old gentleman who was admitted a couple of days ago with presumed cellulitis. He continues on vancomycin per the hospitalist service. There was some mention of possible pancreatic mass on admission; however, CT scan of the abdomen and pelvi s failed to reveal such mass; however, there are retroperitoneal lymph nodes, which are unexplained. Upon inquiry, Mr. Lam other than his lower extremity issue does not appear to be manifesting B type symptoms. He has no complaints of pain. No alteration in appetite. Certainly, lymph nodes in this distribution could represent an indolent lymphoproliferative process versus neoplasia. Obviousl y with his comorbid issues and large size, it would be very difficult to proceed with any form of bio psy. Mr. Lam has expressed interest in continued outpatient followup, perhaps a PET scan could be arranged for upon discharge, that I would be happy to review in outpatient followup. That said, even if diagnosis is made, it may be difficult to convince Mr. Lam to receive any form of treat ment. Obviously, we would not need to convene with both patient and his medical power of commercial attorney. I am all in favor of observation for now, let him heal from cellulitis and again would be happy to se e him in the office within a month or so post-discharge. Unsure how much Mr. Lam understands f rom a clinical standpoint and again I would insist his medical power of commercial attorney be present for outpa tient followup. I have nothing further to add at this time. Thank you very much for allowing me to participate in his care. Job ID: [id number]
--- NOTE | 2020-12-18 15:37 | Hospitalist Progress Note ---
Date of Service December 18, 2020 Assessment & Plan (1) Cellulitis: Plan: ASSESSMENT AND PLAN: This is a 60-year-old male who presents with lower extremity cellulitis and infection. 1. Lower extremity cellulitis and infection: -- Possible sepsis with leukocytosis and tachycardia -- Chronic skin changes possibly from lymphedema. --Lactic acid normalized DC IV fluids in light of suspicion for valvular CHF --Follow-up blood culture and wound culture: negative so far --slightly improved --Continue IV vancomycin and imipenem Continue Lasix 40 mg IV daily Caution with diuresis secondary to possible valvular CHF although echocardiogram was technically limited study EF 60 to 65% -- will consult ID 2. Chronic lower extremity edema: No deep venous thrombosis on ultrasound. Possible valvular CHF --Patient has grade 2 through 3 holosystolic murmur Echocardiogram technically limited study, EF 60 to 65% --Lasix 40 mg IV daily started 3. Hypertension: Not taking any medications currently. --As needed IV labetalol 4. Elevated bilirubin, history of painless jaundice thought to be from biliary strictures -- CT abdomen: 1. Hepatomegaly and hepatic steatosis. Pneumobilia was also seen during CT of abdomen performed in 2007. Gallbladder is not definitely seen, could be surgically absent. 2. No pancreatic mass is seen however there are multiple prominent retroperitoneal lymph nodes. Few slightly enlarged inguinal lymph nodes are seen. Above-mentioned findings might be seen in neoplastic process. No definite intra-abdominal mass lesion is demonstrated. 3. Slightly dilated appendix without inflammatory changes, appears similar to prior study in 2008, could represent sequela from prior inflammatory process versus other etiology -- bilirubin, AST improving -- will consult hematology recommend outpatient PET scan as biopsy of the lymph nodes would be difficult at this time - appreciate Dr. Dowling's recommendations 5. Hypokalemia: -- PO K 40meq TID 6. Hyponatremia: -- resolved dc IV NSS 7. Deep venous thrombosis prophylaxis: Placed on Lovenox. Disposition pending lives alone may need Rehab, SNF Admission and Anticipated Discharge Date Admission Date: December 16, 2020 Subjective ff up for leg cellulitis, etc seen resting in bedside chair, comfortable minimal discomfort on the legs no fever/chills no chest pain, dyspnea, palpitations no other symptoms Review of Systems Review of Systems: all noted and negative except for above Physical Exam Physical Exam: General- oriented x 3, not in distress, speaks in sentences with no effort or accessory muscle use Eyes- anicteric Neck- no JVD Lungs- clear BS BL Heart- normal rate, regular rhythm; no murmurs Abdomen- normal bowel sounds, nondistended, soft, nontender Extremities- no pretibial edema, no calf tenderness (+) significant edema BL, (+) erythema L>R- improved slightly Neuro- alert, oriented x 3; no gross focal neurologic deficits Skin- warm & dry Results & Data Results & Data ([facility]) Vital Signs (Past 12 Hours) Vital Signs Temp Pulse Pulse Resp BP BP Pulse Ox 12/18/20 11:32 36.5 C 98 H 16 154/91 H 96 12/18/20 07:35 36.5 C 108 H 18 139/80 96 12/18/20 07:07 102 H all noted and reviewed including below (1) Cellulitis Laterality: left Site of cellulitis: extremity Site of cellulitis of extremity: lower extremity Qualified Code(s): L03.116 - Cellulitis of left lower limb
[2020-12-19] MEDS: MEROPENEM 500 MG in SYRINGE 0 ML IV SCH ×4 (00:18→17:47)
[2020-12-19 06:13] LABS: Basophils # (auto) 0.05 K/uL (0-0.2); Basophils % (auto) 0.5 %; Eosinophils # (auto) 0.27 K/uL (0-0.5); Eosinophils % (auto) 2.7 %; Hematocrit (blood only) 40.9 % (42-52); Hemoglobin 13.4 g/dL (14.0-18.0); Immature Granulocytes # (auto) 0.43 K/uL (0.00-0.02); Immature Granulocytes % (auto) 4.3 %; Lymphocytes # (auto) 1.85 K/uL (1.2-3.4); Lymphocytes % (auto) 18.7 %; Mean Corpuscular Hemoglobin 30.2 pg (25-34); Mean Corpuscular Hgb Conc 32.8 g/dL (32-36); Mean Corpuscular Volume 92.3 fL (80-100); Mean Platelet Volume 11.2 fL (7.4-10.4); Monocytes # (auto) 0.71 K/uL (0.11-0.59); Monocytes % (auto) 7.2 %; Neutrophils % (auto) 66.6 %; Platelet Count 340 K/uL (130-400); RDW Coefficient of Variation 16.2 % (11.5-14.5); Red Blood Count 4.43 M/uL (4.7-6.1); White Blood Count 9.91 K/uL (4.8-10.8)
[2020-12-19] MEDS: DAPTOmycin 625 MG in SYRINGE 0 ML IV SCH (06:17)
[2020-12-19 06:52] LABS: BUN Creatinine Ratio 25.3 (10-20); Calcium 8.6 mg/dl (8.5-10.1); Creatinine Clr Calc Pharmacy 150.4 ml/min; Est GFR (African American) 115.6 ml/min; Est GFR (Non-African American) 99.7 ml/min
[2020-12-19] MEDS: FUROSEMIDE 40 MG in SYRINGE 0 ML IV SCH (08:18)
[2020-12-19] MEDS: AMMONIUM LACTATE 12% LOTION 225 GM BTL EXT SCH ×2 (08:19→21:05)
[2020-12-19] MEDS: ENOXAPARIN INJ 40 MG/0.4 ML SYR SQ SCH ×2 (09:28→21:05)
[2020-12-19] MEDS: POTASSIUM CHLORIDE CRTAB 20 MEQ TABCR PO SCH ×2 (09:47→21:04)
--- NOTE | 2020-12-19 11:18 | Hospitalist Progress Note ---
Date of Service December 19, 2020 Assessment & Plan (1) Cellulitis: Plan: ASSESSMENT AND PLAN: This is a 60-year-old male who presents with lower extremity cellulitis and infection. 1. Lower extremity cellulitis and infection: -- Possible sepsis with leukocytosis and tachycardia -- Chronic skin changes possibly from lymphedema. --Lactic acid normalized DC IV fluids in light of suspicion for valvular CHF --Follow-up blood culture and wound culture: negative so far --improving gradually --Continue IV vancomycin and imipenem Continue Lasix 40 mg IV daily Caution with diuresis secondary to possible valvular CHF although echocardiogram was technically limited study EF 60 to 65% -- will consult ID 2. Chronic lower extremity edema: No deep venous thrombosis on ultrasound. Possible valvular CHF --Patient has grade 2 through 3 holosystolic murmur Echocardiogram technically limited study, EF 60 to 65% --Lasix 40 mg IV daily started 3. Hypertension: Not taking any medications currently. --As needed IV labetalol 4. Elevated bilirubin, history of painless jaundice thought to be from biliary strictures -- CT abdomen: 1. Hepatomegaly and hepatic steatosis. Pneumobilia was also seen during CT of abdomen performed in 2007. Gallbladder is not definitely seen, could be surgically absent. 2. No pancreatic mass is seen however there are multiple prominent retroperitoneal lymph nodes. Few slightly enlarged inguinal lymph nodes are seen. Above-mentioned findings might be seen in neoplastic process. No definite intra-abdominal mass lesion is demonstrated. 3. Slightly dilated appendix without inflammatory changes, appears similar to prior study in 2008, could represent sequela from prior inflammatory process versus other etiology -- bilirubin, AST improving -- hematology Dr. Dowling consulted: recommend outpatient PET scan as biopsy of the lymph nodes would be difficult at this time - appreciate Dr. Dowling's recommendations 5. Hypokalemia: -- PO K 40meq BID 6. Hyponatremia: -- resolved dc IV NSS 7. Deep venous thrombosis prophylaxis: Placed on Lovenox. Disposition pending lives alone may need Rehab, SNF Admission and Anticipated Discharge Date Admission Date: December 16, 2020 Subjective ff up for leg cellulitis, etc seen resting in bed, comfortable states he feels fine overall leg discomfort improving no fever/chills no chest pain, dyspnea, palpitations, dizziness no other symptoms Review of Systems Review of Systems: all noted and negative except for above Physical Exam Physical Exam: General- oriented x 3, not in distress, speaks in sentences with no effort or accessory muscle use Eyes- anicteric Neck- no JVD Lungs- clear breath sounds bilaterally, no rales/wheezes Heart- normal rate, regular rhythm; no murmurs Abdomen- normal bowel sounds, nondistended, soft, nontender Extremities- grade 2-3 lower leg edema- improving moderate erythema L>R improving Neuro- alert, oriented x 3; no gross focal neurologic deficits Skin- warm & dry Results & Data Results & Data ([facility]) Vital Signs (Past 12 Hours) Vital Signs Temp Pulse Pulse Resp BP BP Pulse Ox 12/19/20 07:41 36.6 C 104 H 18 154/81 H 94 12/19/20 07:09 101 H 12/19/20 03:01 36.8 C 109 H 18 147/78 H 95 12/19/20 00:05 108 H 12/18/20 23:35 36.8 C 109 H 18 123/77 93 all noted and reviewed including below (1) Cellulitis Laterality: left Site of cellulitis: extremity Site of cellulitis of extremity: lower extremity Qualified Code(s): L03.116 - Cellulitis of left lower limb
[2020-12-19] MEDS: ADVANCED PROBIOTIC 1250 MG CAPSULE PO SCH (12:35)
[2020-12-20] MEDS: MEROPENEM 500 MG in SYRINGE 0 ML IV SCH ×4 (00:27→17:22)
[2020-12-20] MEDS: DAPTOmycin 625 MG in SYRINGE 0 ML IV SCH (05:15)
[2020-12-20 07:38] LABS: BUN Creatinine Ratio 24.7 (10-20); Creatinine Clr Calc Pharmacy 149.9 ml/min; Est GFR (African American) 115.6 ml/min; Est GFR (Non-African American) 99.7 ml/min; Potassium 3.4 mmol/L (3.5-5.1)
[2020-12-20] MEDS: POTASSIUM CHLORIDE CRTAB 20 MEQ TABCR PO SCH ×2 (08:38→21:38)
[2020-12-20] MEDS: ADVANCED PROBIOTIC 1250 MG CAPSULE PO SCH (08:39)
[2020-12-20] MEDS: FUROSEMIDE 40 MG in SYRINGE 0 ML IV SCH (08:39)
[2020-12-20] MEDS: AMMONIUM LACTATE 12% LOTION 225 GM BTL EXT SCH ×2 (08:39→20:19)
[2020-12-20] MEDS: ENOXAPARIN INJ 40 MG/0.4 ML SYR SQ SCH ×2 (09:51→21:39)
--- NOTE | 2020-12-20 12:52 | Hospitalist Progress Note ---
Date of Service December 20, 2020 Assessment & Plan (1) Cellulitis: Plan: ASSESSMENT AND PLAN: This is a 60-year-old male who presents with lower extremity cellulitis and infection. 1. Lower extremity cellulitis and infection: -- Possible sepsis with leukocytosis and tachycardia -- Chronic skin changes possibly from lymphedema. --Lactic acid normalized DC IV fluids in light of suspicion for valvular CHF --Follow-up blood culture and wound culture: negative so far -- improving daily --Continue IV vancomycin and imipenem Continue Lasix 40 mg IV daily Caution with diuresis secondary to possible valvular CHF although echocardiogram was technically limited study EF 60 to 65% -- will consult ID, awaiting recommendations 2. Chronic lower extremity edema: No deep venous thrombosis on ultrasound. Possible valvular CHF --Patient has grade 2 through 3 holosystolic murmur Echocardiogram technically limited study, EF 60 to 65% --Lasix 40 mg IV daily started 3. Hypertension: Not taking any medications currently. --As needed IV labetalol 4. Elevated bilirubin, history of painless jaundice thought to be from biliary strictures -- CT abdomen: 1. Hepatomegaly and hepatic steatosis. Pneumobilia was also seen during CT of abdomen performed in 2007. Gallbladder is not definitely seen, could be surgically absent. 2. No pancreatic mass is seen however there are multiple prominent retroperitoneal lymph nodes. Few slightly enlarged inguinal lymph nodes are seen. Above-mentioned findings might be seen in neoplastic process. No definite intra-abdominal mass lesion is demonstrated. 3. Slightly dilated appendix without inflammatory changes, appears similar to prior study in 2008, could represent sequela from prior inflammatory process versus other etiology -- bilirubin, AST improving -- hematology Dr. Dowling consulted: recommend outpatient PET scan as biopsy of the lymph nodes would be difficult at this time - appreciate Dr. Dowling's recommendations 5. Hypokalemia: -- PO K 40meq BID 6. Hyponatremia: -- resolved dc IV NSS 7. Deep venous thrombosis prophylaxis: Placed on Lovenox. Disposition pending lives alone may need Rehab, SNF Admission and Anticipated Discharge Date Admission Date: December 16, 2020 Subjective ff up for cellulitis, etc seen resting in bed, comfortable states he feels ok overall leg continues to feel improved no chest pain, dyspnea, palpitations, dizziness no chills no other symptoms Review of Systems Review of Systems: all noted and negative except for above Physical Exam Physical Exam: General- oriented x 3, not in distress, speaks in sentences with no effort or accessory muscle use Eyes- anicteric Neck- no JVD Lungs- clear BS BL Heart- normal rate, regular rhythm; no murmurs Abdomen- normal bowel sounds, nondistended, soft, nontender Extremities- BL Leg edema- moderate, improving erythema also improving no warmth Neuro- alert, oriented x 3; no gross focal neurologic deficits Skin- warm & dry Results & Data Results & Data ([facility]) Vital Signs (Past 12 Hours) Vital Signs Temp Pulse Pulse Resp BP BP Pulse Ox 12/20/20 11:23 36.5 C 102 H 20 156/80 H 97 12/20/20 07:41 36.5 C 98 H 18 148/96 H 97 12/20/20 07:00 98 H 12/20/20 04:00 36.6 C 103 H 18 129/79 94 (1) Cellulitis Laterality: left Site of cellulitis: extremity Site of cellulitis of extremity: lower extremity Qualified Code(s): L03.116 - Cellulitis of left lower limb
[2020-12-21] MEDS: MEROPENEM 500 MG in SYRINGE 0 ML IV SCH ×4 (00:08→17:37)
[2020-12-21] MEDS: DAPTOmycin 625 MG in SYRINGE 0 ML IV SCH (06:17)
[2020-12-21 06:52] LABS: BUN Creatinine Ratio 25.4 (10-20); Calcium 8.6 mg/dl (8.5-10.1); Creatinine Clr Calc Pharmacy 167.4 ml/min; Est GFR (African American) 121.8 ml/min; Est GFR (Non-African American) 105.1 ml/min; Potassium 3.4 mmol/L (3.5-5.1)
[2020-12-21] MEDS: POTASSIUM CHLORIDE CRTAB 20 MEQ TABCR PO SCH ×3 (09:14→21:09)
[2020-12-21] MEDS: ADVANCED PROBIOTIC 1250 MG CAPSULE PO SCH (09:36)
[2020-12-21] MEDS: FUROSEMIDE 40 MG in SYRINGE 0 ML IV SCH (09:37)
[2020-12-21] MEDS: ENOXAPARIN INJ 40 MG/0.4 ML SYR SQ SCH ×2 (09:37→21:09)
[2020-12-21] MEDS: AMMONIUM LACTATE 12% LOTION 225 GM BTL EXT SCH ×2 (09:40→21:08)
--- NOTE | 2020-12-21 10:57 | Hospitalist Progress Note ---
Date of Service December 21, 2020 Assessment & Plan (1) Cellulitis: Plan: ASSESSMENT AND PLAN: This is a 60-year-old male who presents with lower extremity cellulitis and infection. 1. Lower extremity cellulitis and infection: -- Possible sepsis with leukocytosis and tachycardia -- Chronic skin changes possibly from lymphedema. --Lactic acid normalized DC IV fluids in light of suspicion for valvular CHF --Follow-up blood culture and wound culture: negative so far -- improving daily Tolerating antibiotics and Lasix well --Continue IV daptomycin and meropenem Continue Lasix 40 mg IV daily Caution with diuresis secondary to possible valvular CHF although echocardiogram was technically limited study EF 60 to 65% -- will consult ID, awaiting recommendations 2. Chronic lower extremity edema: No deep venous thrombosis on ultrasound. Possible valvular CHF --Patient has grade 2 through 3 holosystolic murmur Echocardiogram technically limited study, EF 60 to 65% --Lasix 40 mg IV daily started 3. Hypertension: Not taking any medications currently. --As needed IV labetalol 4. Elevated bilirubin, history of painless jaundice thought to be from biliary strictures -- CT abdomen: 1. Hepatomegaly and hepatic steatosis. Pneumobilia was also seen during CT of abdomen performed in 2007. Gallbladder is not definitely seen, could be surgically absent. 2. No pancreatic mass is seen however there are multiple prominent retro peritoneal lymph nodes. Few slightly enlarged inguinal lymph nodes are seen. Above-mentioned findings might be seen in neoplastic process. No definite intra-abdominal mass lesion is demonstrated. 3. Slightly dilated appendix without inflammatory changes, appears similar to prior study in 2008, could represent sequela from prior inflammatory process versus other etiology -- bilirubin, AST improving -- hematology Dr. Dowling consulted: recommend outpatient PET scan as biopsy of the lymph nodes would be difficult at this time - appreciate Dr. Dowling's recommendations 5. Hypokalemia: -- PO K 40meq BID 6. Hyponatremia: -- resolved dc IV NSS 7. Deep venous thrombosis prophylaxis: Placed on Lovenox. Disposition pending lives alone may need Rehab, SNF Admission and Anticipated Discharge Date Admission Date: December 16, 2020 Subjective Follow-up for leg cellulitis, lower extremity edema, etc. Seen resting bedside chair, comfortable, in good spirits, smiling States he continues to feel improved Leg discomfort continues to feel improved No shortness of breath, dyspnea, palpitations, chest pain, dizziness Ambulating better now that the legs are less swollen No other symptom Review of Systems Review of Systems: all noted and negative except for above Physical Exam Physical Exam: General- oriented x 3, not in distress, speaks in sentences with no effort or accessory muscle use Eyes- anicteric Neck- no JVD Lungs- clear breath sounds, no crackles or wheezing bilaterally Heart- normal rate, regular rhythm; no murmurs Abdomen- normal bowel sounds, nondistended, soft, nontender Extremities-bilateral lower extremity significant edema, improving, erythema also improving, no warm Neuro- alert, oriented x 3; no gross focal neurologic deficits Skin- warm & dry Results & Data Results & Data ([facility]) Vital Signs (Past 12 Hours) Vital Signs Temp Pulse Pulse Resp BP BP Pulse Ox 12/21/20 07:34 36.7 C 100 H 18 125/91 96 12/21/20 07:00 101 H 12/21/20 02:42 36.8 C 93 H 18 138/77 95 12/20/20 23:58 99 H 12/20/20 23:11 36.7 C 100 H 18 111/74 95 (1) Cellulitis Laterality: left Site of cellulitis: extremity Site of cellulitis of extremity: lower extremity Qualified Code(s): L03.116 - Cellulitis of left lower limb
[2020-12-22] MEDS: MEROPENEM 500 MG in SYRINGE 0 ML IV SCH ×3 (00:17→12:47)
[2020-12-22] MEDS: DAPTOmycin 625 MG in SYRINGE 0 ML IV SCH (05:26)
[2020-12-22 08:58] LABS: BUN Creatinine Ratio 26.6 (10-20); Calcium 8.8 mg/dl (8.5-10.1); Creatinine Clr Calc Pharmacy 177.5 ml/min; Est GFR (Non-African American) 107.8 ml/min; Potassium 3.6 mmol/L (3.5-5.1)
[2020-12-22] MEDS: FUROSEMIDE 40 MG in SYRINGE 0 ML IV SCH (08:59)
[2020-12-22] MEDS: ADVANCED PROBIOTIC 1250 MG CAPSULE PO SCH (08:59)
[2020-12-22] MEDS: AMMONIUM LACTATE 12% LOTION 225 GM BTL EXT SCH ×2 (08:59→21:11)
[2020-12-22] MEDS: POTASSIUM CHLORIDE CRTAB 20 MEQ TABCR PO SCH ×3 (09:00→21:10)
[2020-12-22] MEDS: ENOXAPARIN INJ 40 MG/0.4 ML SYR SQ SCH ×2 (09:01→21:10)
--- NOTE | 2020-12-22 19:45 | Hospitalist Progress Note ---
Date of Service December 22, 2020 Assessment & Plan (1) Cellulitis: Plan: ASSESSMENT AND PLAN: This is a 60-year-old male who presents with lower extremity cellulitis and infection. 1. Lower extremity cellulitis and infection: -- Chronic skin changes possibly from lymphedema. -- Possible sepsis with leukocytosis and tachycardia -- Lactic acid normalized DC IV fluids in light of suspicion for valvular CHF -- blood culture and wound culture: negative so far -- improving slowly Tolerating antibiotics and Lasix well --Continue IV daptomycin Day 6--> discharged on p.o. doxycycline to complete 14 days total of antibiotics per [facility] ID Continue Lasix 40 mg IV daily --> continue Lasix 40 mg p.o. daily upon discharge with potassium Caution with diuresis secondary to possible valvular CHF although echocardiogram was technically limited study EF 60 to 65% 2. Chronic lower extremity edema: No deep venous thrombosis on ultrasound. Possible valvular CHF --Patient has grade 2 through 3 holosystolic murmur Echocardiogram technically limited study, EF 60 to 65% --Management per #1 3. Hypertension: Not taking any medications currently. --As needed IV labetalol 4. Elevated bilirubin, history of painless jaundice thought to be from biliary strictures -- CT abdomen: 1. Hepatomegaly and hepatic steatosis. Pneumobilia was also seen during CT of abdomen performed in 2007. Gallbladder is not definitely seen, could be surgically absent. 2. No pancreatic mass is seen however there are multiple prominent retroperitoneal lymph nodes. Few slightly enlarged inguinal lymph nodes are seen. Above-mentioned findings might be seen in neoplastic process. No definite intra-abdominal mass lesion is demonstrated. 3. Slightly dilated appendix without inflammatory changes, appears similar to prior study in 2008, could represent sequela from prior inflammatory process versus other etiology -- bilirubin, AST improving -- hematology Dr. Dowling consulted: recommend outpatient PET scan as biopsy of the lymph nodes would be difficult at this time Outpatient follow-up with Dr. Dowling 5. Hypokalemia: -- K 3.6 -- PO K 40meq BID 6. Hyponatremia: -- resolved dc IV NSS 7. Deep venous thrombosis prophylaxis: Placed on Lovenox. Disposition pending lives alone Per case management, discharge to home with home services Admission and Anticipated Discharge Date Admission Date: December 16, 2020 Subjective ff up for lower extremity edema, cellulitis, etc. Seen resting in bed, comfortable, not in distress States he feels fine overall Minimal leg pain No shortness of breath, chest pain, palpitations, dizziness No other symptom Review of Systems Review of Systems: all noted and negative except for above Physical Exam Physical Exam: General- oriented x 3, not in distress, speaks in sentences with no effort or accessory muscle use Eyes- anicteric Neck- no JVD Lungs- clear BS BL no crackles Heart- normal rate, regular rhythm; no murmurs Abdomen- normal bowel sounds, nondistended, soft, nontender Extremities-grade 1 through 2 lower extremity edema, (+) lichenification, erythema improving, no calf tenderness Neuro- alert, oriented x 3; no gross focal neurologic deficits Skin- warm & dry Results & Data Results & Data ([facility]) Vital Signs (Past 12 Hours) Vital Signs Temp Pulse Pulse Resp BP BP Pulse Ox 12/22/20 18:27 36.4 C L 99 H 18 117/70 96 12/22/20 15:32 36.4 C L 109 H 18 131/87 95 12/22/20 15:25 105 H 12/22/20 11:38 36.8 C 116 H 18 130/94 95 12/22/20 07:54 101 H (1) Cellulitis Laterality: left Site of cellulitis: extremity Site of cellulitis of extre mity: lower extremity Qualified Code(s): L03.116 - Cellulitis of left lower limb
[2020-12-23] MEDS: DAPTOmycin 625 MG in SYRINGE 0 ML IV SCH (05:33)
[2020-12-23] MEDS: AMMONIUM LACTATE 12% LOTION 225 GM BTL EXT SCH ×2 (08:16→20:29)
[2020-12-23] MEDS: ADVANCED PROBIOTIC 1250 MG CAPSULE PO SCH (08:16)
[2020-12-23] MEDS: FUROSEMIDE 40 MG in SYRINGE 0 ML IV SCH (08:16)
[2020-12-23] MEDS: POTASSIUM CHLORIDE CRTAB 20 MEQ TABCR PO SCH (08:16)
[2020-12-23 08:49] LABS: BUN Creatinine Ratio 22.5 (10-20); Calcium 8.4 mg/dl (8.5-10.1); Creatinine Clr Calc Pharmacy 157.1 ml/min; Est GFR (African American) 118.9 ml/min; Est GFR (Non-African American) 102.6 ml/min; Potassium 3.6 mmol/L (3.5-5.1)
[2020-12-23] MEDS: ENOXAPARIN INJ 40 MG/0.4 ML SYR SQ SCH ×2 (10:05→20:30)
--- NOTE | 2020-12-23 16:10 | Hospitalist Progress Note ---
Date of Service December 23, 2020 Assessment & Plan (1) Cellulitis: Plan: Patient is a 60 yr male who presents with lower extremity cellulitis and infection. Bilateral Lower extremity cellulitis and infection: Suspected underlying Lymphedema. Possible sepsis -Venous Doppler:No DVT within the visualized left lower extremity. Blood/Wound Cx: Negative Lactic acid normalized with IV fluids Lasix as needed Continue IV daptomycin Day 7 Plan to transition to p.o. doxycycline to complete 14 days Appreciate ID Input Chronic lower extremity edema Venous Doppler: No DVT Possible valvular CHF Echocardiogram technically limited study, EF 60 to 65% Continue Lasix monitor I/Os, daily weight renal function Hypertension: Not taking any medications currently. Monitor Elevated bilirubin H/O Painless jaundice thought to be from biliary strictures Lymphadenopathy CT abdomen: Hepatomegaly and hepatic steatosis. Pneumobilia was also seen during CT of abdomen performed in 2007. Gallbladder is not definitely seen, could be surgically absent. No pancreatic mass is seen however there are multiple prominent retroperitoneal lymph nodes. Few slightly enlarged inguinal lymph nodes are seen. Above-mentioned findings might be seen in neoplastic process. No definite intra-abdominal mass lesion is demonstrated. Slightly dilated appendix without inflammatory changes, appears similar to prior study in 2008, could represent sequela from prior inflammatory process versus other etiology LFTs Improved Appreciate hematology Dr. Dowling Input Needs Outpatient PET scan as biopsy of the lymph nodes would be difficult at this time Needs follow up with Dr. Dowling upon discharge Hypokalemia: Hyponatremia: Replace electrolytes as needed DVT Px: Lovenox SQ Disposition Home with home health Admission and Anticipated Discharge Date Admission Date: December 16, 2020 Subjective Patient is seen and examined at bedside Leg edema slowly improving Denies any leg pain, dizziness, chest pain, shortness of breath, nausea, vomiting, abdominal pain Offers no other complaints Review of Systems Review of Systems: All systems reviewed & are unremarkable except as noted in Subjective Physical Exam Physical Exam: Physical Exam: Vitals signs as noted above General Appearance:Morbidly Obese, no apparent distress Head: normocephalic, Atraumatic Eyes: normal inspection, EOMI Neck: supple, Trachea midline Respiratory/Chest: Normal breath sounds, CTA Cardiovascular: S1, S2, No murmur Abdomen/GI:Soft, Non tender, Bowel sounds present Extremities/Musculoskeletal:normal inspection, B/L LE edema, Lichenification, venous stasis changes Neurologic/Psych:AAOX3, grossly no focal neurological deficits Skin: normal color, warm Results & Data Results & Data ([facility]) Vital Signs (Past 12 Hours) Vital Signs Temp Pulse Pulse Resp BP BP Pulse Ox 12/23/20 15:32 105 H 12/23/20 14:56 36.7 C 106 H 20 131/85 96 12/23/20 13:00 96 H 12/23/20 11:24 36.5 C 103 H 17 131/91 93 12/23/20 07:24 36.4 C L 102 H 17 139/93 95 12/23/20 04:11 36.5 C 95 H 20 160/81 H 95 Laboratory Results [facility] 12/23/20 07:59 Sodium 142 Potassium 3.6 Chloride 107 Carbon Dioxide 29 BUN 16 Creatinine 0.70 Glucose 103 H Calcium 8.4 L (1) Cellulitis Laterality: left Site of cellulitis: extremity Site of cellulitis of extremity: lower extremity Qualified Code(s): L03.116 - Cellulitis of left lower limb
[2020-12-24] MEDS: AMMONIUM LACTATE 12% LOTION 225 GM BTL EXT SCH ×2 (08:13→20:42)
[2020-12-24] MEDS: FUROSEMIDE 40 MG in SYRINGE 0 ML IV SCH (08:13)
[2020-12-24] MEDS: ADVANCED PROBIOTIC 1250 MG CAPSULE PO SCH (08:13)
[2020-12-24] MEDS: lisinopril 5 MG TAB PO SCH (08:44)
[2020-12-24] MEDS: POTASSIUM CHLORIDE CRTAB 20 MEQ TABCR PO SCH (08:44)
[2020-12-24] MEDS: METOPROLOL TARTRATE 50 MG TAB PO SCH ×2 (08:44→20:43)
[2020-12-24 08:51] LABS: BUN Creatinine Ratio 24.4 (10-20); Calcium 8.7 mg/dl (8.5-10.1); Creatinine Clr Calc Pharmacy 153.7 ml/min; Est GFR (African American) 118.9 ml/min; Est GFR (Non-African American) 102.6 ml/min
[2020-12-24] MEDS ORDERED: DAPTOmycin 625 MG in SYRINGE 0 ML IV SCH (09:30)
[2020-12-24 09:37] LABS: Magnesium 1.8 mg/dl (1.8-2.4); Potassium 3.4 mmol/L (3.5-5.1)
[2020-12-24] MEDS: ENOXAPARIN INJ 40 MG/0.4 ML SYR SQ SCH ×2 (10:37→20:43)
--- NOTE | 2020-12-24 17:23 | Hospitalist Progress Note ---
Date of Service December 24, 2020 Assessment & Plan (1) Cellulitis: Plan: Patient is a 60 yr male who presents with lower extremity cellulitis and infection. Bilateral Lower extremity cellulitis and infection: Suspected underlying Lymphedema. Possible sepsis -Venous Doppler:No DVT within the visualized left lower extremity. Blood/Wound Cx: Negative Lactic acid normalized with IV fluids Lasix as needed Received IV daptomycin Day 8 Transition to p.o. doxycycline tomorrow to complete 14 day course Appreciate ID Input Chronic lower extremity edema Venous Doppler: No DVT Possible valvular CHF Echocardiogram technically limited study, EF 60 to 65% Continue Lasix monitor I/Os, daily weight renal function Hypertension: Not taking any medications currently. Started on metoprolol, lisinopril Monitor Elevated bilirubin H/O Painless jaundice thought to be from biliary strictures Lymphadenopathy CT abdomen: Hepatomegaly and hepatic steatosis. Pneumobilia was also seen during CT of abdomen performed in 2007. Gallbladder is not definitely seen, could be surgically absent. No pancreatic mass is seen however there are multiple prominent retroperitoneal lymph nodes. Few slightly enlarged inguinal lymph nodes are seen. Above-mentioned findings might be seen in neoplastic process. No definite intra-abdominal mass lesion is demonstrated. Slightly dilated appendix without inflammatory changes, appears similar to prior study in 2008, could represent sequela from prior inflammatory process versus other etiology LFTs Improved Appreciate hematology Dr. Dowling Input Needs Outpatient PET scan as biopsy of the lymph nodes would be difficult at t his time Needs follow up with Dr. Dowling upon discharge Hypokalemia: Hyponatremia: Replace electrolytes as needed DVT Px: Lovenox SQ Disposition Home with home health Admission and Anticipated Discharge Date Admission Date: December 16, 2020 Subjective Patient is seen and examined at bedside No new complaints Leg edema continues to improve Denies any leg pain, dizziness, chest pain, shortness of breath, nausea, vomiting, abdominal pain Bp elevated today Review of Systems Review of Systems: All systems reviewed & are unremarkable except as noted in Subjective Physical Exam Physical Exam: Physical Exam: Vitals signs as noted above General Appearance:Morbidly Obese, no apparent distress Head: normocephalic, Atraumatic Eyes: normal inspection, EOMI Neck: supple, Trachea midline Respiratory/Chest: Normal breath sounds, CTA Cardiovascular: S1, S2, No murmur Abdomen/GI:Soft, Non tender, Bowel sounds present Extremities/Musculoskeletal:normal inspection, B/L LE edema, Lichenification, venous stasis changes Neurologic/Psych:AAOX3, grossly no focal neurological deficits Skin: normal color, warm Results & Data Results & Data ([facility]) Vital Signs (Past 12 Hours) Vital Signs Temp Pulse Pulse Resp BP BP Pulse Ox 12/24/20 15:31 36.6 C 100 H 20 136/98 96 12/24/20 15:07 90 12/24/20 12:48 36.9 C 98 H 21 144/103 H 94 12/24/20 10:55 102 H 12/24/20 07:53 36.4 C L 104 H 20 163/109 H 96 Laboratory Results BMP 12/24/20 12/24/20 07:18 09:04 Sodium 139 Potassium 3.4 L Chloride 106 Carbon Dioxide 28 BUN 17 Creatinine 0.70 Glucose 101 H Calcium 8.7 (1) Cellulitis Laterality: left Site of cellulitis: extremity Site of cellulitis of extremity: lower extremity Qualified Code(s): L03.116 - Cellulitis of left lower limb
[2020-12-25] MEDS: FUROSEMIDE 40 MG in SYRINGE 0 ML IV SCH (07:32)
[2020-12-25] MEDS: ADVANCED PROBIOTIC 1250 MG CAPSULE PO SCH (07:32)
[2020-12-25] MEDS: ENOXAPARIN INJ 40 MG/0.4 ML SYR SQ SCH (07:33)
[2020-12-25] MEDS: METOPROLOL TARTRATE 50 MG TAB PO SCH (07:33)
[2020-12-25] MEDS: lisinopril 5 MG TAB PO SCH (07:35)
[2020-12-25] MEDS: AMMONIUM LACTATE 12% LOTION 225 GM BTL EXT SCH (07:36)
[2020-12-25 07:54] VITALS: TEMP 97.9
[2020-12-25 08:29] LABS: BUN Creatinine Ratio 23.5 (10-20); Creatinine Clr Calc Pharmacy 127.4 ml/min; Est GFR (African American) 110.3 ml/min; Est GFR (Non-African American) 95.2 ml/min; Magnesium 1.9 mg/dl (1.8-2.4); Potassium 3.1 mmol/L (3.5-5.1)
[2020-12-25] MEDS: POTASSIUM CHLORIDE CRTAB 20 MEQ TABCR PO SCH (09:00)
[2020-12-25] MEDS ORDERED: DOXYCYCLINE HYCLATE 100 MG CAP PO SCH (09:00)
[2020-12-25] MEDS ORDERED: POTASSIUM CHLORIDE CRTAB 20 MEQ TABCR PO SCH (09:45)
[2020-12-25 10:04] VITALS: PULSE 88
[2020-12-25 11:07] VITALS: O2SAT 95
--- NOTE | 2020-12-25 12:07 | Hospitalist Progress Note ---
Date of Service December 25, 2020 Assessment & Plan (1) Cellulitis: Plan: Patient is a 60 yr male who presents with lower extremity cellulitis and infection. Bilateral Lower extremity cellulitis and infection: Suspected underlying Lymphedema. Possible sepsis -Venous Doppler:No DVT within the visualized left lower extremity. Blood/Wound Cx: Negative Lactic acid normalized with IV fluids Lasix as needed Received IV daptomycin Day 8 Transition to p.o. doxycycline today to complete 14 day course Appreciate ID Input Chronic lower extremity edema Venous Doppler: No DVT Possible chronic heart failure with preserved EF Echocardiogram technically limited study, EF 60 to 65% Continue Lasix monitor I/Os, daily weight renal function Hypertension: Not taking any medications currently. Continue metoprolol, lisinopril Monitor Elevated bilirubin H/O Painless jaundice thought to be from biliary strictures Lymphadenopathy CT abdomen: Hepatomegaly and hepatic steatosis. Pneumobilia was also seen during CT of abdomen performed in 2007. Gallbladder is not definitely seen, could be surgically absent. No pancreatic mass is seen however there are multiple prominent retroperitoneal lymph nodes. Few slightly enlarged inguinal lymph nodes are seen. Above-mentioned findings might be seen in neoplastic process. No definite intra-abdominal mass lesion is demonstrated. Slightly dilated appendix without inflammatory changes, appears similar to prior study in 2008, could represent sequela from prior inflammatory process versus other etiology LFTs Improved Appreciate hematology Dr. Dowling Input Needs Outpatient PET scan as biopsy of the lymph nodes would be difficult at this time Needs follow up with Dr. Dowling upon discharge Hypokalemia: chronic as per patient Hyponatremia: Replace electrolytes as needed DVT Px: Lovenox SQ Disposition Home with home health Admission and Anticipated Discharge Date Admission Date: December 16, 2020 Subjective Patient is seen and examined at bedside States feeing well Bp much better today Less Leg edema Denies any leg pain, dizziness, chest pain, shortness of breath, nausea, vomiting, abdominal pain Plan to discharge home today Review of Systems Review of Systems: All systems reviewed & are unremarkable except as noted in Subjective Physical Exam Physical Exam: Physical Exam: Vitals signs as noted above General Appearance:Morbidly Obese, no apparent distress Head: normocephalic, Atraumatic Eyes: normal inspection, EOMI Neck: supple, Trachea midline Respiratory/Chest: Normal breath sounds, CTA Cardiovascular: S1, S2, No murmur Abdomen/GI:Soft, Non tender, Bowel sounds present Extremities/Musculoskeletal:normal inspection, B/L LE edema, Lichenification, venous stasis changes Neurologic/Psych:AAOX3, grossly no focal neurological deficits Skin: normal color, warm Results & Data Results & Data ([facility]) Vital Signs (Past 12 Hours) Vital Signs Temp Pulse Pulse Resp BP BP Pulse Ox 12/25/20 11:05 36.6 C 88 20 127/89 95 12/25/20 10:06 12/25/20 10:03 88 12/25/20 07:53 36.6 C 82 20 136/90 97 12/25/20 04:00 36.7 C 98 H 18 127/87 95 12/25/20 02:19 99 H Pulse Ox 12/25/20 11:05 12/25/20 10:06 97 12/25/20 10:03 12/25/20 07:53 12/25/20 04:00 12/25/20 02:19 Laboratory Results BMP 12/25/20 07:11 Sodium 140 Potassium 3.1 L Chloride 105 Carbon Dioxide 28 BUN 20 H Creatinine 0.84 Glucose 96 Calcium 9.0 (1) Cellulitis Laterality: left Site of cellulitis: extremity Site of cellulitis of extremity: lower extremity Qualified Code(s): L03.116 - Cellulitis of left lower limb
[2020-12-25] MEDS ORDERED: POTASSIUM CHLORIDE CRTAB 20 MEQ TABCR PO ONE (12:12)
--- NOTE | 2020-12-25 12:21 | Discharge Summary ---
Date of Service December 25, 2020 Admission HPI Per Admitting Provider CHIEF COMPLAINT: Lower extremity cellulitis and edema. HISTORY OF PRESENT ILLNESS: This is a 60-year-old male with past medical history significant for hypertension, GERD, history of painless jaundice thought to be from biliary strictures, currently not on any medications, supposed to follow up with GI for any abdominal/pancreatic mass, but he never followed up. He lives alone, ambulates okay. Friend is in the room who is the power of civil rights attorney. The patient has mild intellectual disabilities, presents with lower extremity edema and erythema and some drainage in the left lower extremity. As per the power of civil rights attorney, he was in the grocery store when they called the ambulance and called her, and the patient refused to go at the time the patient went home and she brought him in here. The patient denies any pain, but says some feeling of sunburn in the lower extremity. Resting comfortably. Denies any headache, denies any neck pain. No back pain, no abdominal pain, no chest pain, denies any cough. Denies any fevers. No nausea. Says his bowels are regular. No diarrhea, constipation, or blood in the stools. Normal bladder movements. Denies any blurred visions or earache or runny nose, no sore throat. Says his appetite is okay, he is eating and swallowing okay. No shortness of breath. No smoking, no alcohol as per the power of civil rights attorney. Admission Exam Per Admitting Provider PHYSICAL EXAMINATION: GENERAL: The patient is morbidly obese, not in acute distress. VITAL SIGNS: Temperature 35.9, pulse 117, blood pressure 149/121, respiratory rate 20, and oxygen 98% on room air. HEENT: Pupils equal, round and reactive to light. Oral mucosa moist. NECK: No JVD, no neck masses. CARDIOVASCULAR: S1 and S2 heard. Tachycardia. No murmurs, no gallop. RESPIRATORY SYSTEM: Normal AP diameter. No accessory muscle use. No wheezing, no crackles. ABDOMEN: Soft, bowel sounds present, nontender, no distention. CENTRAL NERVOUS SYSTEM: Alert and oriented. Cranial nerves II-XII grossly intact, nonfocal. EXTREMITIES: Bilateral lower extremity gross edema and erythematous changes and chronic skin changes and somewhat foul smelling and long nails seen. Principal Diagnosis Bilateral Leg Cellulitis Possible chronic heart failure Lymphadenopathy Hypokalemia Discharge Data Allergies Allergy/AdvReac Type Severity Reaction Status Date / Time Penicillins Allergy Mild Verified 12/16/20 19:03 valsartan Allergy Unknown Unknown Unverified 12/16/20 19:03 Consultations 12/16/20 19:39 ED Decision to Admit Stat 12/17/20 15:37 Consult Hematology Routine 12/18/20 15:40 Consult Infectious Diseases Routine Ordered Studies 12/16/20 18:13 US venous doppler LE LT Stat 12/16/20 22:35 CT abd pelvis IV con only Urgent Hospital Course (1) Cellulitis: Patient is a 60 yr male who presents with lower extremity cellulitis and infection. Bilateral Lower extremity cellulitis and infection: Suspected underlying Lymphedema. Possible sepsis -Venous Doppler:No DVT within the visualized left lower extremity. Blood/Wound Cx: Negative Lactic acid normalized with IV fluids Lasix as needed Received IV daptomycin Day 8 Transition to p.o. doxycycline today to complete 14 day course Appreciate ID Input Chronic lower extremity edema Venous Doppler: No DVT Possible chronic heart failure with preserved EF Echocardiogram technically limited study, EF 60 to 65% Continue Lasix monitor I/Os, daily weight renal function Hypertension: Not taking any medications currently. Continue metoprolol, lisinopril Monitor Elevated bilirubin H/O Painless jaundice thought to be from biliary strictures Lymphadenopathy CT abdomen: Hepatomegaly and hepatic steatosis. Pneumobilia was also seen during CT of abdomen performed in 2007. Gallbladder is not definitely seen, could be surgically absent. No pancreatic mass is seen however there are multiple prominent retroperitoneal lymph nodes. Few slightly enlarged inguinal lymph nodes are seen. Above-mentioned findings might be seen in neoplastic process. No definite intra-abdominal mass lesion is demonstrated. Slightly dilated appendix without inflammatory changes, appears similar to prior study in 2008, could represent sequela from prior inflammatory process versus other etiology LFTs Improved Appreciate hematology Dr. Dowling Input Needs Outpatient PET scan as biopsy of the lymph nodes would be difficult at this time Needs follow up with Dr. Dowling upon discharge Hypokalemia: chronic as per patient Hyponatremia: Replace electrolytes as needed DVT Px: Lovenox SQ Disposition Home with home health Total Time Total Time Spent Total Time Spent (In Minutes): 45 minutes Discharge Plan Discharge Items Patient Disposition: Home - Home Health Services Reason For Visit: LOWER EXTREMITY SWELLING Discharge Diagnosis: Bilateral Leg Cellulitis Possible chronic heart failure Lymphadenopathy Hypokalemia Activity: Per Instructions section Exercise/Sports: Gradually increase as tolerated Non-emergency contact: Primary Care Provider, Motorboat Mechanic Helper and Oncologist Call non-emergency contact if: you have any medication questions, your symptoms worsen, your pain is not controlled, your pain is concerning for you and you have a fever Follow-up/Referrals: Monse Pinto MD [Hospitalist] - (Date & Time 12/30/2020 10:00 AM Provider Monse Pinto MD Department [address] [place] [address] General Internal Medicine [facility] ) Diet: Heart Healthy Addtl Attending Provider Instructions: Follow-up with your primary care physician Blair Salvador on 12/30/2020 10:00 AM Follow-up with your oncologist Dr. Dowling for further evaluation of lymphadenopathy as advised. Consider following with your case fitter for evaluation of possible diastolic heart failure. Complete the antibiotic doxycycline as prescribed. Get PET scan as outpatient as recommended by Dr. Dowling for evaluation of lymphadenopathy. Seek immediate medical attention if your symptoms reoccur or worsen Please take all medications as instructed on discharge list below. Please call if you have any questions or problems. You can reach a [facility] hospitalist on duty at [facility] 24 hours a day by calling [phone] Call your Primary Care doctor if any of the following symptoms or problems start or get worse: * Shortness of breath or difficulty breathing * Wake up at night short of breath * Chest pain * Cough * Swelling of your hands, feet, or legs * More fatigued or tired with your normal activity * Palpitations - sudden fast heart beats WEIGHT * Weigh yourself every morning after using the bathroom. * Use the same scale. * Wear the same amount of clothing. * Write your weight down on a chart. * Call your Primary Care doctor if you gain more than 2-3 pounds in 1-2 days. MEDICATIONS * Use this discharge instruction sheet for medication instructions. * Take your medications at the time your doctor ordered. * Do not skip a dose of your medicines. * If you miss a dose of medicine, take it as soon as possible, but DO NOT DOUBLE A DOSE. * Read your medicine information when you get home. * Know all of the side effects of your medicine. If in doubt, ask your pharmacist * Call your Primary Care doctor's office if you have any side effects. * Be sure all of your doctors know what medicine and herbs you take (including cold, flu, and herbal medicine). Take the following with you to your follow-up doctor appointments: * Weight Chart * Medication List * List of questions Do not drink excessive alcohol, beer or wine. Pending Studies at Discharge: No Stand-Alone Forms: My [facility], Smoking Cessation Medications and DC Order Prescriptions: New doxycycline hyclate 100 mg Capsule 100 mg PO BID Qty: 8 RF: 0 lisinopril [Zestril] 5 mg Tablet 5 mg PO QAM Qty: 30 RF: 0 metoprolol tartrate 50 mg Tablet 50 mg PO BID Qty: 60 RF: 0 furosemide 40 mg Tablet 40 mg PO QAM Qty: 30 RF: 0 potassium chloride [Klor-Con M20] 20 mEq Tablet,Er Particles/Crystals 20 meq PO DAILY Qty: 30 RF: 0 Discharge Orders: Discharge Order (Routine); Ordered 12/25/20 Ordered By: Joaquín Herrera Admission Data Admit Date/Time: 12/16/20 21:31 Attending Provider: Joaquín Herrera Admit Provider: Ap Leong Primary Care Provider: PCP,NO Other Providers: Ap Leong ; Callie Guthrie ; Mustapha Dowling V. ; Shayne Vieira ; Arie Barker ; Raleigh Gupta I. ; Satya Fleming II ; Rosita Abdi ; Jerald Pizarro ; [place] Other Interventions: Discharge Summary Assessment (RN) Last Done: 12/25/20 13:02
[2020-12-25 13:06] VITALS: BP 127/87
[2020-12-26] MEDS ORDERED: FUROSEMIDE 40 MG TAB PO SCH (09:00)
[2020-12-26] MEDS ORDERED: POTASSIUM CHLORIDE CRTAB 20 MEQ TABCR PO SCH (09:00)
== END 2020-12-25 16:31 | disposition home health service (06) | DRG 872 ==
LOC: ED 17:32 → 2N 21:31 → SUATTDRO 21:31 → 2N 22:04
DX: L03.116 Cellulitis of left lower limb; I11.0 Hypertensive heart disease with heart failure; Z88.8 Allergy status to other drugs, medicaments and biological substances; E87.6 Hypokalemia; R00.0 Tachycardia, unspecified; K21.9 Gastro-esophageal reflux disease without esophagitis; I50.32 Chronic diastolic (congestive) heart failure; E87.1 Hypo-osmolality and hyponatremia; Z88.0 Allergy status to penicillin; L03.115 Cellulitis of right lower limb; A41.9 Sepsis, unspecified organism; I89.0 Lymphedema, not elsewhere classified

== ENCOUNTER 2022-05-13 10:35 | Inpatient (IN) ==
--- NOTE | 2022-05-13 11:08 | Emergency Department Note ---
Impression & Plan Cellulitis of left leg ED Provider Note NAME: ANNA FLETCHER AGE: 61 SEX: M : 1960 ARRIVES VIA: Walk-In INFORMANT: Patient, the patient's caregiver ED PROVIDER(S): ED TEMP CHIEF COMPLAINT: Leg swelling HPI: The patient is a 61-year-old male who presented to the emergency department directly from his pediatric medical assistant office for an evaluation of leg swelling. The patient's had approximately 2 weeks of lower extremity swelling which was th ought to be cellulitis. The patient was sent to see his primary pediatric medical assistant because of ongoing swelling. He has a history of aortic root dilation as well as aortic stenosis. His primary pediatric medical assistant did call me prior to the patient coming to the emergency department to alert me that he has been having more leg swelling and shortness of breath. There is concern for infection as well as venous thromboembolic disease. The patient states has been compliant with his outpatient medications. He is very short of breath especially with any exertion. ROS: See above HPI for pertinent positives & negatives. A total of 10 systems reviewed and were otherwise negative. PAST MEDICAL HISTORY: See Below PAST SURGICAL HISTORY: See Below FAMILY HISTORY: See Below SOCIAL HISTORY: See Below HOME MEDICATIONS: See Below ALLERGIES: See Below VITALS: See Below PHYSICAL EXAMINATION: GENERAL: Patient is awake alert in no acute distress patient is resting comfortably and showing no signs of anxiety EYES: The conjunctivae are clear. The pupils are round and reactive. EARS, NOSE, MOUTH AND THROAT: The nose is without any evidence of any deformity. NECK: The neck is nontender and supple. RESPIRATORY: Diminished breath sounds are noted throughout. There is mild tachypnea. CARDIOVASCULAR: Regular rate and rhythm noted there no murmurs rubs or gallops normal S1 normal S2. GASTROINTESTINAL: The abdomen is soft. Abdomen is nontender. MUSCULOSKELETAL/EXTREMITIES: There is no evidence of gross deformity full range of motion is noted in the hips and shoulders. SKIN: There is significant venous stasis changes in the left leg. There is significant swelling in the left leg. Skin is warm and dry. NEUROLOGIC: Patient is awake alert and oriented x3 MEDICAL DECISION MAKING: The patient is a 61-year-old male who presented to the emergency department at the request of his primary pediatric medical assistant for an evaluation of leg swelling. The patient has very severe left leg swelling. This appears to be consistent with cellulitis. There is also concern this could be related to venous thromboembolic disease. Doppler showed no signs of DVT. I discussed patient's laboratory and radiographic studies with him. Because of his findings I [facility] have agreed to evaluate the patient in the emergency department for further management and disposition. The patient was treated with IV antibiotics. Triage Nursing notes reviewed. Prior medical records reviewed Vital Signs: reviewed and remarkable for tachycardia. Differential diagnosis: Cellulitis, abscess, MRSA infection, DVT, necrotizing fasciitis, dermatitis, drug eruption, allergic reaction, as well as other pathologies. ER treatment provided: See below Diagnostics interpreted by me: ECG: EKG was obtained in the emergency department. My interpretation is normal sinus rhythm at 87 bpm. There is no ectopy. LVH was noted by voltage criteria. Nonspecific ST segment depressions with T wave abnormalities were noted. This was compared to a tracing from December 16, 2020. No significant changes were noted. Cardiac Monitoring: An order was placed for continuous cardiac monitoring. The monitor shows a rate of 112 bpm with sinus tachycardia. Laboratory studies: As stated above and show below. Imaging studies: See below. Radiographic imaging was reviewed by myself Consultation(s): I discussed this case with Stephanie [facility]. Past Med/Surg History Medical History Aortic root enlargement Under surveillance by [facility] cardio Aortic valve stenosis borderline severe, echo every 6 months per [facility] cardio Ascending aortic aneurysm moderate 4.5 cm Chronic venous stasis dermatitis GERD (gastroesophageal reflux disease) Hyperlipidemia Hypertension Intellectual disability needs help with meds/someone cleans house for him Morbid obesity with BMI of 45.0-49.9, adult Type 2 diabetes mellitus diet controlled, no meds, dx listed in [facility] records Surgical History History of esophagogastroduodenoscopy (EGD) History of tonsillectomy S/P colonoscopy S/P endoscopy EUS ([facility] 12/2021) inconclusive findings. Family History Other No family history of adverse response to anesthesia Social History Smoking Status: Never smoker Second Hand Exposure: No; Hx Alcohol Use: Yes Alcohol type: beer Hx Substance Use: No Preferred Language: Serbian Communication Ability: Effective Visual Impairment: No Limitations Hearing Ability: Normal [employer] Manager Required: No Beliefs That Will Affect Care: None marital status: Single Current Living Situation: Alone Current Living Situation Comment: BILL GATICA COMES TO VISIT DAILY- HAS HELP CLEANING How many Children do You have: 0 Feels Safe at Home: Yes caffeine: No Assistive Devices: None Allergies Allergies Allergy/AdvReac Type Severity Reaction Status Date / Time doxycycline Allergy Intermediate Rash Verified 05/13/22 14:56 losartan [From Cozaar] Allergy Intermediate Rash Verified 05/13/22 14:56 Penicillins Allergy Intermediate Hives Verified 05/13/22 14:56 valsartan Allergy Intermediate Rash Verified 05/13/22 14:56 Home Meds Home Medications Medication Instructions Recorded Confirmed loratadine 10 mg tablet (Claritin) 10 mg PO QAM 02/16/21 05/13/22 magnesium oxide 400 mg PO HS 02/16/21 05/13/22 multivitamin 1 tab PO QAM 02/16/21 05/13/22 omeprazole 20 mg tablet,delayed 20 mg PO QAM 02/16/21 05/13/22 release potassium chloride 20 mEq 20 meq PO BID 02/16/21 05/13/22 tablet,extended release(part/cryst) (Klor-Con M) rosuvastatin 10 mg tablet (Crestor) 10 mg PO QAM 12/29/21 05/13/22 lisinopril 20 mg tablet 20 mg PO DAILY 05/13/22 05/13/22 sulfamethoxazole 800 1 tab PO BID 05/13/22 05/13/22 mg-trimethoprim 160 mg tablet Previous Rx's Medication Instructions Recorded furosemide 40 mg tablet 40 mg PO QAM #30 tabs 12/25/20 metoprolol tartrate 50 mg tablet 50 mg PO BID #60 tabs 12/25/20 Results & Data (ED) Vital Signs Vital Signs - 24 hr 05/13/22 10:39 05/13/22 13:00 05/13/22 13:41 Temperature 36.8 C Temperature Source Oral Pulse Rate 97 H 104 H Pulse Rate [Finger] 104 H Respiratory Rate 18 20 22 Respiratory Effort / Characteristics Non-Labored Respiratory Depth Normal Respiratory Pattern Regular Blood Pressure 174/112 H Blood Pressure [Right Radial Artery] 131/87 Blood Pressure Mean 132 Blood Pressure Mean [Right Radial Artery] 101 Blood Pressure Position [Right Radial Artery] Pulse Oximetry 97 96 99 Oxygen Delivery Method Room Air Room Air Room Air Sepsis Recent Fever Within 48 Hours No Sepsis New/Unexplained Change in Mental Status No Sepsis Action Taken by Nursing No Action Required 05/13/22 15:28 Temperature Temperature Source Pulse Rate Pulse Rate [Finger] 112 H Respiratory Rate 24 Respiratory Effort / Characteristics Non-Labored Respiratory Depth Normal Respiratory Pattern Regular Blood Pressure Blood Pressure [Right Radial Artery] 136/86 Blood Pressure Mean Blood Pressure Mean [Right Radial Artery] 102 Blood Pressure Position [Right Radial Artery] Sitting Pulse Oximetry 97 Oxygen Delivery Method Room Air Sepsis Recent Fever Within 48 Hours Sepsis New/Unexplained Change in Mental Status Sepsis Action Taken by Intermediate Medications Current Medication List: was personally reviewed by me Laboratory Data Attestation: I reviewed the patient's lab results. 05/13/22 12:34 05/13/22 12:34 Lab Results 05/13/22 05/13/22 05/13/22 Range/Units 12:02 12:34 12:34 WBC 8.31 (4.8-10.8) K/ul RBC 4.42 L (4.63-6.08) M/uL Hgb 13.6 L (14.0-18.0) g/dl Hct 42.4 (40.1-51.0) % MCV 95.9 (80.0-100.0) fL MCH 30.8 (25.0-34.0) pg MCHC 32.1 (32.0-36.0) g/dL RDW Std Deviation 53.1 H (36.4-46.3) fL RDW Coeff of Analy 14.8 H (11.5-14.5) % Plt Count 299 (130-400) K/uL MPV 10.3 (9.4-12.4) fL Immature Gran % (Auto) 1.0 % Neut % (Auto) 67.8 % Lymph % (Auto) 21.5 % Lewis % (Auto) 6.1 % Eos % (Auto) 2.9 % Baso % (Auto) 0.7 % Neut # (Auto) 5.63 (1.4-6.5) K/uL Lymph # (Auto) 1.79 (1.2-3.4) K/uL Lewis # (Auto) 0.51 (0.24-0.82) K/uL Eos # (Auto) 0.24 (0-0.50) K/uL Baso # (Auto) 0.06 (0-0.2) K/uL Immature Gran # (Auto) 0.08 H (0.00-0.02) K/uL ESR (0-20) mm/hr PT 11.1 (9.0-12.0) Seconds INR 1.0 (0.9-1.1) APTT 28.5 (21.0-31.0) Seconds PTT Ratio 1.0 Sodium (136-145) mmol/L Potassium (3.5-5.1) mmol/L Chloride (98-107) mmol/L Carbon Dioxide (21-32) mmol/L Anion Gap (3-11) BUN (6-23) mg/dl Creatinine (0.6-1.4) mg/dl Est Cr Clr Drug Dosing ml/min Est GFR ( Amer) ml/min Est GFR (Non-Af Amer) ml/min BUN/Creatinine Ratio (10-20) Glucose (70-99(Fasting)) mg/dl Lactate (0.4-2.0) mmol/L Calcium (8.5-10.1) mg/dl Magnesium (1.7-2.4) mg/dl Total Bilirubin (0.2-1.0) mg/dl Direct Bilirubin (0-0.2) mg/dl AST (13-39) U/L ALT (7-52) U/L Alkaline Phosphatase (34-104) U/L Troponin I High Sens (0-20) pg/ml C-Reactive Protein (0-0.5) mg/dl B-Natriuretic Peptide (0-100) pg/ml Total Protein (6.0-8.3) gm/dl Albumin (3.4-5.0) gm/dl Procalcitonin (0-0.5) ng/ml SARS-CoV-2, RNA, NAAT NEGATIVE (NEGATIVE) 05/13/22 05/13/22 05/13/22 Range/Units 12:34 12:34 12:34 WBC (4.8-10.8) K/ul RBC (4.63-6.08) M/uL Hgb (14.0-18.0) g/dl Hct (40.1-51.0) % MCV (80.0-100.0) fL MCH (25.0-34.0) pg MCHC (32.0-36.0) g/dL RDW Std Deviation (36.4-46.3) fL RDW Coeff of Analy (11.5-14.5) % Plt Count (130-400) K/uL MPV (9.4-12.4) fL Immature Gran % (Auto) % Neut % (Auto) % Lymph % (Auto) % Lewis % (Auto) % Eos % (Auto) % Baso % (Auto) % Neut # (Auto) (1.4-6.5) K/uL Lymph # (Auto) (1.2-3.4) K/uL Lewis # (Auto) (0.24-0.82) K/uL Eos # (Auto) (0-0.50) K/uL Baso # (Auto) (0-0.2) K/uL Immature Gran # (Auto) (0.00-0.02) K/uL ESR (0-20) mm/hr PT (9.0-12.0) Seconds INR (0.9-1.1) APTT (21.0-31.0) Seconds PTT Ratio Sodium 140 (136-145) mmol/L Potassium 4.9 (3.5-5.1) mmol/L Chloride 104 (98-107) mmol/L Carbon Dioxide 30 (21-32) mmol/L Anion Gap 6 (3-11) BUN 20 (6-23) mg/dl Creatinine 1.00 (0.6-1.4) mg/dl Est Cr Clr Drug Dosing 116.7 ml/min Est GFR ( Amer) 93.7 ml/min Est GFR (Non-Af Amer) 80.9 ml/min BUN/Creatinine Ratio 20.0 (10-20) Glucose 103 H (70-99(Fasting)) mg/dl Lactate 1.9 (0.4-2.0) mmol/L Calcium 9.9 (8.5-10.1) mg/dl Magnesium 2.0 (1.7-2.4) mg/dl Total Bilirubin 0.3 (0.2-1.0) mg/dl Direct Bilirubin 0.0 (0-0.2) mg/dl AST 29 (13-39) U/L ALT 34 (7-52) U/L Alkaline Phosphatase 65 (34-104) U/L Troponin I High Sens 10.0 (0-20) pg/ml C-Reactive Protein 1.80 H (0-0.5) mg/dl B-Natriuretic Peptide (0-100) pg/ml Total Protein 8.0 (6.0-8.3) gm/dl Albumin 4.1 (3.4-5.0) gm/dl Procalcitonin < 0.05 (0-0.5) ng/ml SARS-CoV-2, RNA, NAAT (NEGATIVE) 05/13/22 05/13/22 05/13/22 Range/Units 12:34 12:34 12:34 WBC (4.8-10.8) K/ul RBC (4.63-6.08) M/uL Hgb (14.0-18.0) g/dl Hct (40.1-51.0) % MCV (80.0-100.0) fL MCH (25.0-34.0) pg MCHC (32.0-36.0) g/dL RDW Std Deviation (36.4-46.3) fL RDW Coeff of Analy (11.5-14.5) % Plt Count (130-400) K/uL MPV (9.4-12.4) fL Immature Gran % (Auto) % Neut % (Auto) % Lymph % (Auto) % Lewis % (Auto) % Eos % (Auto) % Baso % (Auto) % Neut # (Auto) (1.4-6.5) K/uL Lymph # (Auto) (1.2-3.4) K/uL Lewis # (Auto) (0.24-0.82) K/uL Eos # (Auto) (0-0.50) K/uL Baso # (Auto) (0-0.2) K/uL Immature Gran # (Auto) (0.00-0.02) K/uL ESR 63 H (0-20) mm/hr PT (9.0-12.0) Seconds INR (0.9-1.1) APTT (21.0-31.0) Seconds PTT Ratio Sodium (136-145) mmol/L Potassium (3.5-5.1) mmol/L Chloride (98-107) mmol/L Carbon Dioxide (21-32) mmol/L Anion Gap (3-11) BUN (6-23) mg/dl Creatinine (0.6-1.4) mg/dl Est Cr Clr Drug Dosing ml/min Est GFR ( Amer) ml/min Est GFR (Non-Af Amer) ml/min BUN/Creatinine Ratio (10-20) Glucose (70-99(Fasting)) mg/dl Lactate (0.4-2.0) mmol/L Calcium (8.5-10.1) mg/dl Magnesium (1.7-2.4) mg/dl Total Bilirubin (0.2-1.0) mg/dl Direct Bilirubin (0-0.2) mg/dl AST (13-39) U/L ALT (7-52) U/L Alkaline Phosphatase (34-104) U/L Troponin I High Sens (0-20) pg/ml C-Reactive Protein Cancelled (0-0.5) mg/dl B-Natriuretic Peptide 39 (0-100) pg/ml Total Protein (6.0-8.3) gm/dl Albumin (3.4-5.0) gm/dl Procalcitonin (0-0.5) ng/ml SARS-CoV-2, RNA, NAAT (NEGATIVE) Administered Medications Discontinued Medications Furosemide (Furosemide 40 Mg/4 Ml Vial) 40 mg IV ONE ONE Stop: 05/13/22 16:01 Last Admin: 05/13/22 16:05 Dose: 40 mg Documented By: QGV Ceftriaxone Sodium (Rocephin) 2,000 mg in 70 mls @ 140 mls/hr IV NOW STA Stop: 05/13/22 14:50 Last Infusion: 05/13/22 15:46 Dose: 0 mls/hr Documented By: Admin: 05/13/22 15:14 Dose: 140 mls/hr Documented By: QGV Imaging Data Radiologist's Impression: Chest X-Ray 05/13/22 10:42 XR chest 1V portable CLINICAL HISTORY: Sepsis. COMPARISON STUDY: Chest radiograph December 16, 2020. PET/CT November 03, 2021. FINDINGS: Lung volumes are normal. Lungs are clear. There is no pneumothorax or pleural effusion. Cardiac size is normal. Mediastinal contours are normal. There is no evidence for pulmonary edema. IMPRESSION: No acute cardiopulmonary findings. ACT 112: Negative or not required by law. Electronically signed by: Fran Bryant M.D. 05/13/2022 11:06 AM Venous Doppler Study 05/13/22 10:42 LEFT LOWER EXTREMITY VENOUS DOPPLER HISTORY: Acute pain and swelling of the left lower extremity swelling COMPARISON STUDY: 12/16/2020 FINDINGS: There is normal compressibility, flow, and augmentation within the left lower extremity deep venous system. Mild subcutaneous edema. IMPRESSION: No DVT within the left lower extremity. ACT 112: Negative or not required by law. Electronically signed by: Frantz Cardenas M.D. 05/13/2022 1:47 PM Discharge Plan Visit Data Chief Complaint: Leg Injury/Pain Stated Complaint: cellulitis of L leg, swollen ED Provider: Colten Leary Discharge Problem: Cellulitis of left leg Patient Disposition: Being Evaluated by Hospitalist Forms Stand Alone Forms: My [facility] Prescriptions Prescriptions: No Action rosuvastatin [Crestor] 10 mg Tablet 10 mg PO QAM lisinopril 20 mg Tablet 20 mg PO DAILY sulfamethoxazole-trimethoprim 800-160 mg tablet 1 tab PO BID Rx Instructions: STARTED 05/10/22 WITH PM DOSE, FOR 7 DAYS. metoprolol tartrate 50 mg Tablet 50 mg PO BID Qty: 60 0RF furosemide 40 mg Tablet 40 mg PO QAM Qty: 30 0RF multivitamin Tablet 1 tab PO QAM loratadine [Claritin] 10 mg Tablet 10 mg PO QAM omeprazole 20 mg Tablet,Delayed Release (Dr/Ec) 20 mg PO QAM magnesium oxide 400 mg magnesium Tablet 400 mg PO HS potassium chloride [Klor-Con M20] 20 mEq tablet,ER particles/crystals 20 meq PO BID Referrals Referrals: Jean-Pierre Portillo MD [Primary Care Provider] -
[2022-05-13 12:57] LABS: Basophils # (auto) 0.06 K/uL (0-0.2); Basophils % (auto) 0.7 %; Eosinophils # (auto) 0.24 K/uL (0-0.50); Eosinophils % (auto) 2.9 %; Hematocrit (blood only) 42.4 % (40.1-51.0); Hemoglobin 13.6 g/dl (14.0-18.0); Immature Granulocytes # (auto) 0.08 K/uL (0.00-0.02); Lymphocytes # (auto) 1.79 K/uL (1.2-3.4); Lymphocytes % (auto) 21.5 %; Mean Corpuscular Hemoglobin 30.8 pg (25.0-34.0); Mean Corpuscular Hgb Conc 32.1 g/dL (32.0-36.0); Mean Corpuscular Volume 95.9 fL (80.0-100.0); Mean Platelet Volume 10.3 fL (9.4-12.4); Monocytes # (auto) 0.51 K/uL (0.24-0.82); Monocytes % (auto) 6.1 %; Neutrophils # (auto) 5.63 K/uL (1.4-6.5); Neutrophils % (auto) 67.8 %; Platelet Count 299 K/uL (130-400); RDW Coefficient of Variation 14.8 % (11.5-14.5); RDW Standard Deviation 53.1 fL (36.4-46.3); Red Blood Count 4.42 M/uL (4.63-6.08); White Blood Count 8.31 K/ul (4.8-10.8)
--- NOTE | 2022-05-13 13:00 | Cardiology Consultation ---
Date of Consultation May 13, 2022 Assessment & Plan (1) Heart failure with preserved ejection fraction: (2) Right heart failure: (3) Severe calcific aortic stenosis: (4) Morbid obesity: (5) Cellulitis: Plan 61-year-old male with mild intellectual disorder with underlying issues of calcific aortic stenosis, severe, morbid obesity, uncontrolled hypertension who presented with increasing abdominal girth lower extremity edema with weeping and recent cellulitis. Exam consistent with acute on chronic diastolic heart failure with preserved ejection fraction right greater than left with increasing abdominal girth and lower extremity edema. Superimposed cellulitis. Initial screening studies do not reveal evidence of DVT Recommendations as per medical team regarding cellulitis. In addition would manifest diuresis with IV furosemide twice daily dosing low threshold for spironolactone. Assess oxygenation levels and hypoventilation Will ultimately need outpatient evaluation by valve team History of Present Illness Reason for Consultation: Acute heart failure with preserved ejection fraction, severe aortic stenosis Requesting Physician: Dr. Fong History of Present Illness Patient is a 61-year-old male referred for admission from outpatient cardiology clinic. (See outpatient note Dr. Fong 05/13/2022) his ongoing medical/cardiac issues include 1. Severe calcific aortic stenosis, possibly bicuspid valve 2. Ascending aortic aneurysm 3. Severe hypertension 4. Morbid obesity 5. Left leg cellulitis 6. Type 2 diabetes mellitus 7. Lymphadenopathy Patient presented to the outpatient cardiology clinic for routine appointment today noting recent diagnosis of left leg cellulitis. Patient was treated with antibiotic therapy but has been aware of increasing leg and abdominal girth left greater than right with increasing weight gain. Marked dyspnea with exertion no chest pains no tachypalpitations. Patient is accompanied by caregiver No noted fevers chills or other sweats. No bleeding difficulties Allergies Allergy/AdvReac Type Severity Reaction Status Date / Time Penicillins Allergy Intermediate Hives Verified 03/31/22 08:53 doxycycline Allergy Mild Rash Verified 03/31/22 08:53 losartan [From Cozaar] Allergy Mild Rash Verified 03/31/22 08:53 valsartan Allergy Unknown Rash Verified 03/31/22 08:53 Home Medications Medication Instructions Recorded Confirmed Type furosemide 40 mg tablet 40 mg PO QAM #30 tabs 12/25/20 03/31/22 Rx metoprolol tartrate 50 mg tablet 50 mg PO BID #60 tabs 12/25/20 03/31/22 Rx loratadine 10 mg tablet (Claritin) 10 mg PO QAM 02/16/21 03/31/22 History magnesium oxide 400 mg PO HS 02/16/21 03/31/22 History multivitamin 1 tab PO QAM 02/16/21 03/31/22 History omeprazole 20 mg tablet,delayed 20 mg PO QAM 02/16/21 03/31/22 History release potassium chloride 20 mEq 20 meq PO BID 02/16/21 03/31/22 History tablet,extended release(part/cryst) (Klor-Con M) rosuvastatin 10 mg tablet (Crestor) 10 mg PO QAM 12/29/21 03/31/22 History lisinopril 10 mg tablet 10 mg PO QAM 03/15/22 03/31/22 History Patient History Medical History Aortic root enlargement Under surveillance by [facility] cardio Aortic valve stenosis borderline severe, echo every 6 months per [facility] cardio Ascending aortic aneurysm moderate 4.5 cm Chronic venous stasis dermatitis GERD (gastroesophageal reflux disease) Hyperlipidemia Hypertension Intellectual disability needs help with meds/someone cleans house for him Morbid obesity with BMI of 45.0-49.9, adult Type 2 diabetes mellitus diet controlled, no meds, dx listed in [facility] records Surgical History History of esophagogastroduodenoscopy (EGD) History of tonsillectomy S/P colonoscopy S/P endoscopy EUS ([facility] 12/2021) inconclusive findings. Family History Other No family history of adverse response to anesthesia Social History Smoking Status: Never smoker Second Hand Exposure: No; Hx Alcohol Use: Yes Alcohol type: beer Hx Substance Use: No Preferred Language: Ecuadorean Communication Ability: Effective Visual Impairment: No Limitations Hearing Ability: Normal Environmental Aid Required: No Beliefs That Will Affect Care: None marital status: Single Current Living Situation: Alone Current Living Situation Comment: BILL GATICA COMES TO VISIT DAILY- HAS HELP CLEANING How many Children do You have: 0 Feels Safe at Home: Yes caffeine: No Assistive Devices: None Review of Systems Review of Systems: All systems reviewed & are unremarkable except as noted in HPI & below Physical Exam Constitutional: + morbidly obese Mildly dyspneic but in no acute distress ENMT: external ear and nose normal, oropharynx normal Neck: + thick neck Respiratory: Auscultation: lungs clear to auscultation bilaterally and + diminished lung sounds Cardiovascular: Rate/Rhythm: regular rate and regular rhythm Heart Sounds: normal S1 and + murmur (Harsh grade 3/6); + abnormal S2 Extremities: + edema (3+ to above the knees with chronic stasis changes left greater than right) Gastrointestinal (Abdomen): Percussion/Palpation: abdomen nontender and no guarding Distended with increased abdominal girth Results & Data ([facility]) Vital Signs (Past 12 Hours) Vital Signs Temp Pulse Resp BP Pulse Ox O2 Del Method 05/13/22 10:39 36.8 C 97 H 18 174/112 H 97 Room Air Laboratory Results Laboratory Results - last 24 hr 05/13/22 05/13/22 05/13/22 12:02 12:34 12:34 WBC 8.31 RBC 4.42 L Hgb 13.6 L Hct 42.4 MCV 95.9 MCH 30.8 MCHC 32.1 RDW Std Deviation 53.1 H RDW Coeff of Analy 14.8 H Plt Count 299 MPV 10.3 Immature Gran % (Auto) 1.0 Neut % (Auto) 67.8 Lymph % (Auto) 21.5 [place] % (Auto) 6.1 Eos % (Auto) 2.9 Baso % (Auto) 0.7 Neut # (Auto) 5.63 Lymph # (Auto) 1.79 [place] # (Auto) 0.51 Eos # (Auto) 0.24 Baso # (Auto) 0.06 Immature Gran # (Auto) 0.08 H ESR PT 11.1 INR 1.0 APTT 28.5 PTT Ratio 1.0 Sodium Potassium Chloride Carbon Dioxide Anion Gap BUN Creatinine Est Cr Clr Drug Dosing Est GFR ( Amer) Est GFR (Non-Af Amer) BUN/Creatinine Ratio Glucose Lactate Calcium Magnesium Total Bilirubin Direct Bilirubin AST ALT Alkaline Phosphatase Troponin I High Sens C-Reactive Protein B-Natriuretic Peptide Total Protein Albumin Procalcitonin SARS-CoV-2, RNA, NAAT NEGATIVE 05/13/22 05/13/22 05/13/22 12:34 12:34 12:34 WBC RBC Hgb Hct MCV MCH MCHC RDW Std Deviation RDW Coeff of Analy Plt Count MPV Immature Gran % (Auto) Neut % (Auto) Lymph % (Auto) [place] % (Auto) Eos % (Auto) Baso % (Auto) Neut # (Auto) Lymph # (Auto) [place] # (Auto) Eos # (Auto) Baso # (Auto) Immature Gran # (Auto) ESR PT INR APTT PTT Ratio Sodium 140 Potassium 4.9 Chloride 104 Carbon Dioxide 30 Anion Gap 6 BUN 20 Creatinine 1.00 Est Cr Clr Drug Dosing 116.7 Est GFR ( Amer) 93.7 Est GFR (Non-Af Amer) 80.9 BUN/Creatinine Ratio 20.0 Glucose 103 H Lactate 1.9 Calcium 9.9 Magnesium 2.0 Total Bilirubin 0.3 Direct Bilirubin 0.0 AST 29 ALT 34 Alkaline Phosphatase 65 Troponin I High Sens 10.0 C-Reactive Protein 1.80 H B-Natriuretic Peptide Total Protein 8.0 Albumin 4.1 Procalcitonin < 0.05 SARS-CoV-2, RNA, NAAT 05/13/22 05/13/22 05/13/22 12:34 12:34 12:34 WBC RBC Hgb Hct MCV MCH MCHC RDW Std Deviation RDW Coeff of Analy Plt Count MPV Immature Gran % (Auto) Neut % (Auto) Lymph % (Auto) [place] % (Auto) Eos % (Auto) Baso % (Auto) Neut # (Auto) Lymph # (Auto) [place] # (Auto) Eos # (Auto) Baso # (Auto) Immature Gran # (Auto) ESR 63 H PT INR APTT PTT Ratio Sodium Potassium Chloride Carbon Dioxide Anion Gap BUN Creatinine Est Cr Clr Drug Dosing Est GFR ( Amer) Est GFR (Non-Af Amer) BUN/Creatinine Ratio Glucose Lactate Calcium Magnesium Total Bilirubin Direct Bilirubin AST ALT Alkaline Phosphatase Troponin I High Sens C-Reactive Protein Cancelled B-Natriuretic Peptide Pending Total Protein Albumin Procalcitonin SARS-CoV-2, RNA, NAAT Diagnostic Findings Echocardiogram 04/28/2022 There was sinus tachycardia during the examination. Normal LV chamber size with mild concentric LVH. Normal LV systolic function without regional wall motion abnormalities. Calculated LV ejection Fraction = 66% (bi-plane method of discs). Grade I diastolic dysfunction. The aortic valve is inadequately visualized but the Doppler data is adequate for interpretation. Severe aortic valve stenosis is present. Peak systolic aortic valve gradient 4.3 m/s, mean aortic valve gradient 48 mmHg There is no significant aortic regurgitation. The aortic root is normal sized. The proximal ascending thoracic aorta is moderately enlarged. (4.6 cm) (1) Cellulitis Laterality: left Site of cellulitis: extremity Site of cellulitis of extremity: lower extremity Qualified Code(s): L03.116 - Cellulitis of left lower limb
[2022-05-13 13:21] LABS: Partial Thromboplastin Time 28.5 Seconds (21.0-31.0); Prothrombin Time 11.1 Seconds (9.0-12.0)
[2022-05-13 13:33] LABS: Albumin Level 4.1 gm/dl (3.4-5.0); Bilirubin,Total 0.3 mg/dl (0.2-1.0); C Reactive Protein 1.8 mg/dl (0-0.5); Calcium 9.9 mg/dl (8.5-10.1); Creatinine Clr Calc Pharmacy 116.7 ml/min; Est GFR (African American) 93.7 ml/min; Est GFR (Non-African American) 80.9 ml/min; Potassium 4.9 mmol/L (3.5-5.1)
--- NOTE | 2022-05-13 13:49 | Ultrasound Report ---
LEFT LOWER EXTREMITY VENOUS DOPPLER HISTORY: Acute pain and swelling of the left lower extremity swelling COMPARISON STUDY: 12/16/2020 FINDINGS: There is normal compressibility, flow, and augmentation within the left lower extremity jailene p venous system. Mild subcutaneous edema. IMPRESSION: No DVT within the left lower extremity. ACT 112: Negative or not required by law. Electronically signed by: Frantz Cardenas M.D. 05/13/2022 1:47 PM
[2022-05-13] MEDS ORDERED: cefTRIAXone SODIUM 2,000 MG/70 ML BAG IV STA (14:21)
--- NOTE | 2022-05-13 14:28 | Electrocardiogram Report ---
Test Reason : Blood Pressure : / mmHG Vent. Rate : 087 BPM Atrial Rate : 087 BPM P-R Int : 190 ms QRS Dur : 076 ms QT Int : 362 ms P-R-T Axes : 066 011 148 degrees QTc Int : 435 ms Normal sinus rhythm Possible Left atrial enlargement Septal infarct , age undetermined Abnormal ECG When compared with ECG of 16-DEC-2020 19:05, Septal infarct is now Present T wave inversion more evident in Lateral leads Confirmed by Vaibhav Rawls ([id number]) on 05/13/2022 2:28:37 PM Referred By: Confirmed By:Vaibhav Rawls
--- NOTE | 2022-05-13 15:06 | History & Physical Report ---
Date of Service May 13, 2022 Assessment & Plan (1) Cellulitis: Plan: Patient is 61-year-old male with PMH HTN, HLD, DM II, GERD, chronic venous stasis BLE, severe aortic stenosis, thoracic ascending aortic aneurysm, learning disability, obesity presented to ER with complaint of increased BLE edema x 2-3 weeks with left lower extremity tenderness and clear drainage Chronic venous stasis dermatitis. Possible superimposed acute cellulitis LLE In ER afebrile, vital stable, no leukocytosis, lactate and procalcitonin WNL Venous Doppler LLE: No DVT Been on Bactrim x3 days outpatient for LLE cellulitis In ER given Rocephin Hold outpatient Bactrim Continue Rocephin CBC, BMP in a.m. (2) Aortic valve stenosis: (3) Acute on chronic diastolic CHF (congestive heart failure): Plan: Increased BLE edema x 2-3 weeks with left worse than right leg BNP: 39 CXR: No DVT within the left lower extremity Reviewed outpatient echo 04/28/2022: EF: 66%, no wall motion abnormality, mild LVH, grade 1 diastolic dysfunction, severe aortic valve stenosis, proximal ascending thoracic aorta moderately enlarged Monitor I's and O's, daily weights, low-sodium diet Hold home Lasix Lasix 40 mg IV twice daily Cardiology consult. Recommended twice daily IV Lasix Will need outpatient cardiology/valve clinic follow-up (4) Hypertension: Plan: Stable Continue lisinopril, metoprolol tartrate (5) Hyperlipidemia: Plan: Continue rosuvastatin (6) Type 2 diabetes mellitus: Plan: Not on outpatient medications A1c: 6.6 on 03/04/2022 per outpatient chart review Monitor BSG's NovoLog sliding scale correction factor only for now. Monitor may need to further adjust (7) GERD (gastroesophageal reflux disease): Plan: Continue PPI DVT Prophylaxis Lovenox SQ Full Code as per discussion with pt and pt's POA Follows with Dr Portillo for routine care Pt was seen and care coordinated with Dr Pena. See addendum I spent total of 75 minutes of reviewing notes, outpatient records, labs, medications, coordinating, documenting, and providing care for this patient excluding time spent in the performance of separately billed services. History of Present Illness Chief Complaint: Left leg swelling Primary Care Provider: Jean-Pierre Portillo MD Patient is 61-year-old male with PMH HTN, HLD, DM II, GERD, chronic venous stasis BLE, severe aortic stenosis, thoracic ascending aortic aneurysm, learning disability, obesity presented to ER with complaint of left lower extremity swelling. History obtained from patient, patient's POA, and chart review. Patient with chronic bilateral lower extremity edema however reports increased edema over the past 2-3 weeks. Left leg has been worse with erythema and tenderness. Does not weight himself regularly. He was seen at PCPs office 05/10/2022 for LLE erythema edema and discomfort. Was diagnosed with cellulitis and started on Bactrim. Hasn't noticed a difference in the appearance of his legs. Denies fever/chills. Seen in cardiology clinic today and concern for DVT as well as acute on chronic CHF and was referred to ER. Patient has chronic orthopnea. Sleeps in recliner. Denies diaphoresis, N/V/D/C, ROBERTO, dizziness, syncope, vision changes, neck pain, CP, increased SOB or orthopnea, palpitations, cough, sore throat, choking, otalgia, rhinorrhea, abdominal pain, paresthesias, weakness, extremity weakness, other rashes, urinary symptoms. Allergies Allergy/AdvReac Type Severity Reaction Status Date / Time doxycycline Allergy Intermediate Rash Verified 05/13/22 14:56 losartan [From Cozaar] Allergy Intermediate Rash Verified 05/13/22 14:56 Penicillins Allergy Intermediate Hives Verified 05/13/22 14:56 valsartan Allergy Intermediate Rash Verified 05/13/22 14:56 Home Medications Medication Instructions Recorded Confirmed Type furosemide 40 mg tablet 40 mg PO QAM #30 tabs 12/25/20 05/13/22 Rx metoprolol tartrate 50 mg tablet 50 mg PO BID #60 tabs 12/25/20 05/13/22 Rx loratadine 10 mg tablet (Claritin) 10 mg PO QAM 02/16/21 05/13/22 History magnesium oxide 400 mg PO HS 02/16/21 05/13/22 History multivitamin 1 tab PO QAM 02/16/21 05/13/22 History omeprazole 20 mg tablet,delayed 20 mg PO QAM 02/16/21 05/13/22 History release potassium chloride 20 mEq 20 meq PO BID 02/16/21 05/13/22 History tablet,extended release(part/cryst) (Klor-Con M) rosuvastatin 10 mg tablet (Crestor) 10 mg PO QAM 12/29/21 05/13/22 History lisinopril 20 mg tablet 20 mg PO DAILY 05/13/22 05/13/22 History sulfamethoxazole 800 1 tab PO BID 05/13/22 05/13/22 History mg-trimethoprim 160 mg tablet Past Med/Surg History Medical History (Updated 05/13/22 @ 16:23 by Livier Almanzar PA-C) Aortic root enlargement Under surveillance by [facility] cardio Aortic valve stenosis borderline severe, echo every 6 months per [facility] cardio Ascending aortic aneurysm moderate 4.5 cm Chronic venous stasis dermatitis GERD (gastroesophageal reflux disease) Hyperlipidemia Hypertension Intellectual disability needs help with meds/someone cleans house for him Morbid obesity with BMI of 45.0-49.9, adult Type 2 diabetes mellitus diet controlled, no meds, dx listed in [facility] records Surgical History History of esophagogastroduodenoscopy (EGD) History of tonsillectomy S/P colonoscopy S/P endoscopy EUS ([facility] 12/2021) inconclusive findings. 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 Required: No Beliefs That Will Affect Care: None marital status: Single Current Living Situation: Alone Current Living Situation Comment: [facility] COMES TO VISIT DAILY- HAS HELP CLEANING How many Children do You have: 0 Feels Safe at Home: Yes caffeine: No Assistive Devices: None Review of Systems Review of Systems: All systems reviewed & are unremarkable except as noted in HPI & below Physical Exam Physical Exam: General: no distress, +obese Head: normocephalic, atraumatic Eyes: conjunctiva non-injected, anicteric ENT: normal inspection external ears, nose, mucous membranes moist Neck: supple, trachea midline Lungs: clear, no respiratory distress, no wheezing/rhonchi/rales CV: Tachycardia, rate 102, regular rhythm, + murmur, + pretibial edema bilateral Abd: normal BS, soft, non-tender Ext: no cyanosis, no calf tenderness; RLE: +edema, brown discoloration and erythema, LLE: +edema, brown discoloration and erythema, lateral aspect with serous drainage and mild tenderness to palpation Neuro: A&O x 3, no focal deficits noted, normal affect Skin: warm, dry; as above in extremities Results & Data Results & Data ([facility]) Vital Signs (Past 12 Hours) Vital Signs Temp Pulse Pulse Resp BP BP Pulse Ox 05/13/22 13:41 104 H 22 131/87 99 05/13/22 13:00 104 H 20 96 05/13/22 10:39 36.8 C 97 H 18 174/112 H 97 O2 Del Method 05/13/22 13:41 Room Air 05/13/22 13:00 Room Air 05/13/22 10:39 Room Air Laboratory Results Short CBC 05/13/22 Range/Units 12:34 WBC 8.31 (4.8-10.8) K/ul Hgb 13.6 L (14.0-18.0) g/dl Hct 42.4 (40.1-51.0) % Plt Count 299 (130-400) K/uL BMP 05/13/22 12:34 Sodium 140 Potassium 4.9 Chloride 104 Carbon Dioxide 30 BUN 20 Creatinine 1.00 Glucose 103 H Calcium 9.9 Liver Function 05/13/22 Range/Units 12:34 Total Bilirubin 0.3 (0.2-1.0) mg/dl Direct Bilirubin 0.0 (0-0.2) mg/dl AST 29 (13-39) U/L ALT 34 (7-52) U/L Alkaline Phosphatase 65 (34-104) U/L Albumin 4.1 (3.4-5.0) gm/dl Diagnostic Findings Chest X-Ray 05/13/22 10:42 XR chest 1V portable CLINICAL HISTORY: Sepsis. COMPARISON STUDY: Chest radiograph December 16, 2020. PET/CT November 03, 2021. FINDINGS: Lung volumes are normal. Lungs are clear. There is no pneumothorax or pleural effusion. Cardiac size is normal. Mediastinal contours are normal. There is no evidence for pulmonary edema. IMPRESSION: No acute cardiopulmonary findings. ACT 112: Negative or not required by law. Electronically signed by: Fran Bryant M.D. 05/13/2022 11:06 AM Venous Doppler Study 05/13/22 10:42 LEFT LOWER EXTREMITY VENOUS DOPPLER HISTORY: Acute pain and swelling of the left lower extremity swelling COMPARISON STUDY: 12/16/2020 FINDINGS: There is normal compressibility, flow, and augmentation within the left lower extremity deep venous system. Mild subcutaneous edema. IMPRESSION: No DVT within the left lower extremity. ACT 112: Negative or not required by law. Electronically signed by: Frantz Cardenas M.D. 05/13/2022 1:47 PM Supervising Physician Co-Signing Physician Notes Attending addendum: The patient was seen and examined in emergency room 61-year-old with calcific aortic stenosis, hypertension and morbid obesity has been complaining of increasing swelling of the legs with redness and pain in the leg for about 1 week He was sent in from outpatient clinic for worsening CHF and possible cellulitis of the legs Complains to have some pain in the legs but denies any fever and or chills Denies any chest pain, palpitation or any shortness of breath at rest On examination Lying in bed comfortably Hemodynamically stable with tachycardia of 112 Chest-decreased breath sounds bilaterally with minimal crackles bibasally Heart-S1-S2 with 2/6 ESM over aortic area Abdomen-distended, soft, bowel sound present Extremities-chronic edema bilaterally with significant skin changes with redness and warmth, left more than the right, minimal wheezing from skin break ANODE ADJUSTER-alert, awake and oriented x3 His admission labs, EKG and imaging studies reviewed Has decompensated right heart failure with preserved ejection fraction complicated by severe calcific aortic stenosis Bilateral leg cellulitis, left worse than the right Morbid obesity We will continue with intravenous ceftriaxone for now, received Bactrim for 3 days and as an outpatient and will give Lasix 40 mg IV twice a day Cardiology has been consulted Agree with assessment and plan as outlined above by JEFF Auguste Dr (1) Cellulitis Laterality: left Site of cellulitis: extremity Site of cellulitis of extr emity: lower extremity Qualified Code(s): L03.116 - Cellulitis of left lower limb
[2022-05-13] MEDS ORDERED: FUROSEMIDE 40 MG/4 ML VIAL IV ONE ×2 (16:00→20:40)
[2022-05-13] MEDS ORDERED: CARBOHYDRATES FOR HYPOGLYCEMIA PO PRN (17:38)
[2022-05-13] MEDS ORDERED: GLUCOSE 40% GEL 15 GM TUBE PO PRN (17:38)
[2022-05-13] MEDS ORDERED: DEXTROSE 50% 50 ML SYRINGE IV PRN (17:38)
[2022-05-13] MEDS ORDERED: GLUCAGON FOR INJ 1 MG VIAL SQ PRN (17:38)
[2022-05-13] MEDS ORDERED: GLUCOSE 10 TAB/TUBE PO PRN (17:38)
[2022-05-13] MEDS ORDERED: POLYETHYLENE (MIRALAX) 17 GM PACK PO PRN (17:38)
[2022-05-13 18:41] LABS: Appearance Urine Clear (Clear); Bilirubin Urine Negative (Negative); Blood Urine Negative (Negative); Color Urine Yellow; Glucose Urine UA Negative (Negative); Ketones Urine Negative (Negative); Leukocyte Esterase Urine Negative (Negative); Nitrite Urine Negative (Negative); Protein Urine Negative (Negative); Specific Gravity Urine 1.012 (1.000-1.030); Urobilinogen Urine Negative (Negative)
[2022-05-13] MEDS: INSULIN ASPART PER UNIT SC SCH ×2 (20:32→21:39)
[2022-05-13] MEDS: POTASSIUM CHLORIDE CRTAB 20 MEQ TABCR PO SCH (21:38)
[2022-05-13] MEDS: ENOXAPARIN INJ 40 MG/0.4 ML SYR SQ SCH (21:38)
[2022-05-13] MEDS: MAGNESIUM OXIDE 400 MG TAB PO SCH (21:38)
[2022-05-13] MEDS: METOPROLOL TARTRATE 50 MG TAB PO SCH (21:38)
[2022-05-13] MEDS: MICONAZOLE NITRATE POWDER 43 GM EXT PRN (22:07)
[2022-05-14 06:03] LABS: Hematocrit (blood only) 40.7 % (40.1-51.0); Hemoglobin 13.2 g/dl (14.0-18.0); Mean Corpuscular Hemoglobin 30.8 pg (25.0-34.0); Mean Corpuscular Hgb Conc 32.4 g/dL (32.0-36.0); Mean Corpuscular Volume 94.9 fL (80.0-100.0); Mean Platelet Volume 10.4 fL (9.4-12.4); Platelet Count 286 K/uL (130-400); RDW Standard Deviation 51.9 fL (36.4-46.3); Red Blood Count 4.29 M/uL (4.63-6.08); White Blood Count 6.55 K/ul (4.8-10.8)
[2022-05-14 06:40] LABS: BUN Creatinine Ratio 18.9 (10-20); Calcium 9.3 mg/dl (8.5-10.1); Creatinine Clr Calc Pharmacy 98.9 ml/min; Est GFR (African American) 82.6 ml/min; Est GFR (Non-African American) 71.3 ml/min; Potassium 4.3 mmol/L (3.5-5.1)
[2022-05-14] MEDS ORDERED: FUROSEMIDE 40 MG TAB PO SCH (09:00)
[2022-05-14] MEDS: PANTOprazole 40 MG TAB PO SCH (09:31)
[2022-05-14] MEDS: POTASSIUM CHLORIDE CRTAB 20 MEQ TABCR PO SCH (09:31)
[2022-05-14] MEDS: METOPROLOL TARTRATE 50 MG TAB PO SCH ×2 (09:31→20:29)
[2022-05-14] MEDS: ENOXAPARIN INJ 40 MG/0.4 ML SYR SQ SCH ×2 (09:32→20:27)
[2022-05-14] MEDS: MULTIVITAMIN TAB PO SCH (09:32)
[2022-05-14] MEDS: LORATADINE 10 MG TAB PO SCH (09:32)
[2022-05-14] MEDS: lisinopril 20 MG TAB PO SCH (09:32)
[2022-05-14] MEDS: MICONAZOLE NITRATE POWDER 43 GM EXT PRN (09:32)
[2022-05-14] MEDS: ROSUVASTATIN CALCIUM 10 MG TAB PO SCH (09:32)
[2022-05-14] MEDS: FUROSEMIDE 40 MG/4 ML VIAL IV SCH ×2 (09:40→18:39)
[2022-05-14] MEDS: ACETAMINOPHEN 325 MG TAB PO PRN (09:40)
[2022-05-14] MEDS: INSULIN ASPART PER UNIT SC SCH ×4 (09:41→20:28)
--- NOTE | 2022-05-14 13:47 | Hospitalist Progress Note ---
Date of Service May 14, 2022 Assessment & Plan (1) Cellulitis: Plan: Patient is 61-year-old male with PMH HTN, HLD, DM II, GERD, chronic venous stasis BLE, severe aortic stenosis, thoracic ascending aortic aneurysm, learning disability, obesity presented to ER with complaint of increased BLE edema x 2-3 weeks with left lower extremity tenderness and clear drainage Chronic venous stasis dermatitis. Possible superimposed acute cellulitis LLE In ER afebrile, vital stable, no leukocytosis, lactate and procalcitonin WNL Venous Doppler LLE: No DVT Been on Bactrim x3 days outpatient for LLE cellulitis Started on intravenous Rocephin with a plan to transition to Keflex on discharge Clinically much better (2) Aortic valve stenosis: (3) Acute on chronic diastolic CHF (congestive heart failure): Plan: Increased BLE edema x 2-3 weeks with left worse than right leg BNP: 39 CXR: No DVT within the left lower extremity Reviewed outpatient echo 04/28/2022: EF: 66%, no wall motion abnormality, mild LVH, grade 1 diastolic dysfunction, severe aortic valve stenosis, proximal ascending thoracic aorta moderately enlarged Lasix 40 mg IV twice daily Cardiology consult. Recommended twice daily IV Lasix Will need outpatient cardiology/valve clinic follow-up Has been diuresing enough and denies any symptoms of fluid overload (4) Hypertension: Plan: Stable Continue lisinopril, metoprolol tartrate (5) Hyperlipidemia: Plan: Continue rosuvastatin (6) Type 2 diabetes mellitus: Plan: Not on outpatient medications A1c: 6.6 on 03/04/2022 per outpatient chart review Monitor BSG's NovoLog sliding scale correction factor only for now. Monitor may need to further adjust (7) GERD (gastroesophageal reflux disease): Plan: Continue PPI DVT Prophylaxis Lovenox SQ Full Code as per discussion with pt and pt's POA Follows with Dr Portillo for routine care Admission and Anticipated Discharge Date Admission Date: May 13, 2022 Subjective 05/14/2022 The patient was seen and examined in medical telemetry unit He has been feeling much better and denies any shortness of breath at rest No fever and no chills and his cellulitis and swelling of the legs are getting better Review of Systems Review of Systems: All systems reviewed and are unremarkable except as noted below Physical Exam Physical Exam: Sitting on a chair without any acute distress Constitutional: well developed, well nourished, + ill appearing and + morbidly obese Eyes: PERRL, conjunctivae normal, anicteric sclerae ENMT: external ear and nose normal, oropharynx normal Neck: trachea midline, no thyromegaly Respiratory: no respiratory distress Auscultation: + diminished lung sounds and + crackles (Minimal bibasilar crackles) Cardiovascular: Rate/Rhythm: regular rate and regular rhythm; not tachycardic Heart Sounds: normal S1 and normal S2; no murmur Extremities: + edema (1+ edema bilaterally with chronic skin changes complicated by lymphedema) Gastrointestinal (Abdomen): Inspection/Auscultation: normal bowel sounds; abdomen not distended Percussion/Palpation: abdomen soft; abdomen nontender Musculoskeletal: No acute arthritis in any joint Skin: Bilateral leg cellulitis without any skin breach and or drainage- improving Neurologic: moves all extremities; no focal motor deficits Lymphatic: no cervical or axillary lymphadenopathy Results & Data Results & Data ([facility]) Vital Signs (Past 12 Hours) Vital Signs Temp Pulse Resp BP Pulse Ox O2 Del Method 05/14/22 11:45 36.4 C L 70 16 114/80 96 Room Air 05/14/22 07:22 36.6 C 86 18 110/74 98 Room Air 05/14/22 03:17 36.7 C 86 16 146/92 H 96 Room Air Laboratory Results Short CBC 05/14/22 Range/Units 05:23 WBC 6.55 (4.8-10.8) K/ul Hgb 13.2 L (14.0-18.0) g/dl Hct 40.7 (40.1-51.0) % Plt Count 286 (130-400) K/uL BMP 05/14/22 05:23 Sodium 137 Potassium 4.3 Chloride 101 Carbon Dioxide 30 BUN 21 Creatinine 1.11 Glucose 131 H Calcium 9.3 Urine 05/13/22 Range/Units 18:25 Urine Color Yellow Urine Appearance Clear (Clear) Urine pH 8.0 H (4.5-7.5) Ur Specific [place] 1.012 (1.000-1.030) Urine Protein Negative (Negative) Urine Glucose (UA) Negative (Negative) Medications Administered Current Inpatient Medications Acetaminophen (Acetaminophen 325 Mg Tab) 650 mg PO Q4H PRN PRN Reason: Pain or Fever Stop: 06/12/22 17:37 Last Admin: 05/14/22 09:40 Dose: 650 mg Dextrose (Dextrose 50% 50 Ml Syringe) 25 - 50 ml IV UD PRN; Protocol PRN Reason: Hypoglycemia Protocol Stop: 06/12/22 17:37 Enoxaparin Sodium (Enoxaparin Inj 40 Mg/0.4 Ml Syr) 40 mg SQ Q12 SHIRLEY Stop: 06/12/22 18:59 Last Admin: 05/14/22 09:32 Dose: 40 mg Furosemide (Furosemide 40 Mg Tab) 40 mg PO [id number] SHIRLEY Stop: 06/13/22 08:59 Furosemide (Furosemide 40 Mg/4 Ml Vial) 40 mg IV [id number] SHIRLEY Stop: 06/13/22 08:59 Last Admin: 05/14/22 09:40 Dose: 40 mg Glucagon (Glucagon For Inj 1 Mg Vial) 1 mg SQ UD PRN; Protocol PRN Reason: Hypoglycemia Protocol Stop: 06/12/22 17:37 Glucose (Glucose 40% Gel 15 Gm Tube) 15 - 30 gm PO UD PRN; Protocol PRN Reason: Hypoglycemia Protocol Stop: 06/12/22 17:37 Glucose (Glucose 10 Tab/Tube) 4 - 8 tab PO UD PRN; Protocol PRN Reason: Hypoglycemia Treatment Stop: 06/12/22 17:37 Ceftriaxone Sodium 2,000 mg/ (Dextrose) 70 mls @ 100 mls/hr IV Q24H [facility]; Protocol Stop: 05/21/22 14:59 Insulin Aspart (Insulin Aspart Per Unit) 0 units SC ACHS SHIRLEY Stop: 06/12/22 17:59 Last Admin: 05/14/22 12:02 Dose: Not Given Lisinopril (Lisinopril 20 Mg Tab) 20 mg PO DAILY SHIRLEY Stop: 06/13/22 08:59 Last Admin: 05/14/22 09:32 Dose: 20 mg Loratadine (Loratadine 10 Mg Tab) 10 mg PO QAM [facility]LEY Stop: 06/13/22 08:59 Last Admin: 05/14/22 09:32 Dose: 10 mg Magnesium Oxide (Magnesium Oxide 400 Mg Tab) 400 mg PO HS [facility] Stop: 06/12/22 20:59 Last Admin: 05/13/22 21:38 Dose: 400 mg Metoprolol Tartrate (Metoprolol Tartrate 50 Mg Tab) 50 mg PO BID [facility] Stop: 06/12/22 20:59 Last Admin: 05/14/22 09:31 Dose: 50 mg Miconazole Nitrate (Miconazole Nitrate Powder 43 Gm) 1 appln EXT PRN PRN PRN Reason: Affected Skin Folds Stop: 06/12/22 21:35 Last Admin: 05/14/22 09:32 Dose: 1 appln Miscellaneous (Carbohydrates For Hypoglycemia ) 15 - 30 gm PO UD PRN PRN Reason: Hypoglycemia Protocol Stop: 06/12/22 17:37 Multivitamins (Multivitamin Tab) 1 tab PO QAM [facility] Stop: 06/13/22 08:59 Last Admin: 05/14/22 09:32 Dose: 1 tab Pantoprazole Sodium (Pantoprazole 40 Mg Tab) 40 mg PO QAM [facility]; Protocol Stop: 06/13/22 08:59 Last Admin: 05/14/22 09:31 Dose: 40 mg Polyethylene Glycol (Polyethylene (Miralax) 17 Gm Pack) 17 gm PO DAILY PRN PRN Reason: Constipation Stop: 06/12/22 17:37 Potassium Chloride (Potassium Chloride Crtab 20 Meq Tabcr) 20 meq PO BID SHIRLEY Stop: 06/12/22 20:59 Last Admin: 05/14/22 09:31 Dose: 20 meq Rosuvastatin Calcium (Rosuvastatin Calcium 10 Mg Tab) 10 mg PO QAM [facility] Stop: 06/13/22 08:59 Last Admin: 05/14/22 09:32 Dose: 10 mg (1) Cellulitis Laterality: left Site of cellulitis: extremity Site of cellulitis of extremity: lower extremity Qualified Code(s): L03.116 - Cellulitis of left lower limb
--- NOTE | 2022-05-14 14:23 | Cardiology Progress Note ---
Date of Service May 14, 2022 Assessment & Plan (1) Heart failure with preserved ejection fraction: (2) Right heart failure: (3) Severe calcific aortic stenosis: (4) Morbid obesity: (5) Cellulitis: Plan 61-year-old male with mild intellectual disorder with underlying issues of calcific aortic stenosis, severe, morbid obesity, uncontrolled hypertension who presented with increasing abdominal girth lower extremity edema with weeping and recent cellulitis. Exam consistent with acute on chronic diastolic heart failure with preserved ejection fraction right greater than left with increasing abdominal girth and lower extremity edema. Superimposed cellulitis. Initial screening studies do not reveal evidence of DVT Recommendations as per medical team regarding cellulitis. In addition would manifest diuresis with IV furosemide twice daily dosing low threshold for saba nolactone. Assess oxygenation levels and hypoventilation Will ultimately need outpatient evaluation by valve team 05/14/2022 Right heart failure clinically improving. BNP not reflective of clinical status given predominant right heart failure We will continue IV furosemide Add low-dose spironolactone beginning today Nocturnal oximetry will be ordered Admission and Anticipated Discharge Date Admission Date: May 13, 2022 Subjective Patient seen and examined, chart, medications, telemetry reviewed. Patient has had a brisk diuresis over the past 24 hours and feels improved. Still with lower extremity edema and abdominal distention but less profound. No chest pains or discomfort no tachypalpitations. Review of Systems Review of Systems: All systems reviewed & are unremarkable except as noted in Subjective Physical Exam Constitutional: + morbidly obese ENMT: external ear and nose normal, oropharynx normal Neck: + thick neck Respiratory: Auscultation: lungs clear to auscultation bilaterally and + diminished lung sounds Cardiovascular: Rate/Rhythm: regular rate and regular rhythm Heart Sounds: normal S1 and + murmur (Harsh grade 3/6); + abnormal S2 Extremities: + edema (3+ to above the knees with chronic stasis changes left greater than right) Gastrointestinal (Abdomen): Percussion/Palpation: abdomen nontender and no guarding Results & Data ([facility]) Vital Signs (Past 12 Hours) Vital Signs Temp Pulse Resp BP Pulse Ox O2 Del Method 05/14/22 11:45 36.4 C L 70 16 114/80 96 Room Air 05/14/22 07:22 36.6 C 86 18 110/74 98 Room Air 05/14/22 03:17 36.7 C 86 16 146/92 H 96 Room Air Laboratory Results Laboratory Results - last 24 hr 05/13/22 05/13/22 05/13/22 18:22 18:25 20:28 WBC RBC Hgb Hct MCV MCH MCHC RDW Std Deviation RDW Coeff of Analy Plt Count MPV Sodium Potassium Chloride Carbon Dioxide Anion Gap BUN Creatinine Est Cr Clr Drug Dosing Est GFR ( Amer) Est GFR (Non-Af Amer) BUN/Creatinine Ratio Glucose POC Glucose 116 H 140 H Calcium Magnesium Urine Color Yellow Urine Appearance Clear Urine pH 8.0 H Ur Specific [place] 1.012 Urine Protein Negative Urine Glucose (UA) Negative Urine Ketones Negative Urine Blood Negative Urine Nitrite Negative Urine Bilirubin Negative Urine Urobilinogen Negative Ur Leukocyte Esterase Negative 05/13/22 05/14/22 05/14/22 21:23 05:23 05:23 WBC 6.55 RBC 4.29 L Hgb 13.2 L Hct 40.7 MCV 94.9 MCH 30.8 MCHC 32.4 RDW Std Deviation 51.9 H RDW Coeff of Analy 15.0 H Plt Count 286 MPV 10.4 Sodium 137 Potassium 4.3 Chloride 101 Carbon Dioxide 30 Anion Gap 6 BUN 21 Creatinine 1.11 Est Cr Clr Drug Dosing 98.9 Est GFR ( Amer) 82.6 Est GFR (Non-Af Amer) 71.3 BUN/Creatinine Ratio 18.9 Glucose 131 H POC Glucose 125 H Calcium 9.3 Magnesium 2.0 Urine Color Urine Appearance Urine pH Ur Specific [place] Urine Protein Urine Glucose (UA) Urine Ketones Urine Blood Urine Nitrite Urine Bilirubin Urine Urobilinogen Ur Leukocyte Esterase 05/14/22 05/14/22 07:49 11:39 WBC RBC Hgb Hct MCV MCH MCHC RDW Std Deviation RDW Coeff of Analy Plt Count MPV Sodium Potassium Chloride Carbon Dioxide Anion Gap BUN Creatinine Est Cr Clr Drug Dosing Est GFR ( Amer) Est GFR (Non-Af Amer) BUN/Creatinine Ratio Glucose POC Glucose 177 H 121 H Calcium Magnesium Urine Color Urine Appearance Urine pH Ur Specific [place] Urine Protein Urine Glucose (UA) Urine Ketones Urine Blood Urine Nitrite Urine Bilirubin Urine Urobilinogen Ur Leukocyte Esterase (1) Cellulitis Laterality: left Site of cellulitis: extremity Site of cellulitis of extremity: lower extremity Qualified Code(s): L03.116 - Cellulitis of left lower limb
[2022-05-14] MEDS: cefTRIAXone SODIUM 2,000 MG in DEXTROSE 5% 50 ML IV SCH (15:19)
[2022-05-14] MEDS: SPIRONOLACTONE 25 MG TAB PO SCH (15:19)
[2022-05-14] MEDS: ERYTHROMYCIN OP OINT 1 GM PKT OPL SCH (20:27)
[2022-05-14] MEDS: AMMONIUM LACTATE 12% LOTION 225 GM BTL EXT SCH (20:27)
[2022-05-14] MEDS: MAGNESIUM OXIDE 400 MG TAB PO SCH (20:28)
[2022-05-15 05:51] LABS: Basophils # (auto) 0.06 K/uL (0-0.2); Basophils % (auto) 0.8 %; Eosinophils # (auto) 0.25 K/uL (0-0.50); Eosinophils % (auto) 3.4 %; Hematocrit (blood only) 41.2 % (40.1-51.0); Hemoglobin 13.5 g/dl (14.0-18.0); Immature Granulocytes # (auto) 0.09 K/uL (0.00-0.02); Immature Granulocytes % (auto) 1.2 %; Lymphocytes # (auto) 1.69 K/uL (1.2-3.4); Lymphocytes % (auto) 22.9 %; Mean Corpuscular Hgb Conc 32.8 g/dL (32.0-36.0); Mean Corpuscular Volume 94.5 fL (80.0-100.0); Mean Platelet Volume 10.5 fL (9.4-12.4); Monocytes # (auto) 0.62 K/uL (0.24-0.82); Monocytes % (auto) 8.4 %; Neutrophils # (auto) 4.68 K/uL (1.4-6.5); Neutrophils % (auto) 63.3 %; Platelet Count 297 K/uL (130-400); RDW Coefficient of Variation 14.8 % (11.5-14.5); RDW Standard Deviation 51.6 fL (36.4-46.3); Red Blood Count 4.36 M/uL (4.63-6.08); White Blood Count 7.39 K/ul (4.8-10.8)
[2022-05-15 06:22] LABS: BUN Creatinine Ratio 23.3 (10-20); Calcium 9.7 mg/dl (8.5-10.1); Creatinine Clr Calc Pharmacy 94.6 ml/min; Est GFR (African American) 78.3 ml/min; Est GFR (Non-African American) 67.6 ml/min; Magnesium 2.1 mg/dl (1.7-2.4); Potassium 4.2 mmol/L (3.5-5.1)
[2022-05-15] MEDS: lisinopril 20 MG TAB PO SCH (09:21)
[2022-05-15] MEDS: LORATADINE 10 MG TAB PO SCH (09:21)
[2022-05-15] MEDS: ACETAMINOPHEN 325 MG TAB PO PRN (09:21)
[2022-05-15] MEDS: METOPROLOL TARTRATE 50 MG TAB PO SCH ×2 (09:21→20:20)
[2022-05-15] MEDS: ERYTHROMYCIN OP OINT 1 GM PKT OPL SCH ×2 (09:21→20:20)
[2022-05-15] MEDS: AMMONIUM LACTATE 12% LOTION 225 GM BTL EXT SCH ×2 (09:21→20:19)
[2022-05-15] MEDS: PANTOprazole 40 MG TAB PO SCH (09:21)
[2022-05-15] MEDS: ROSUVASTATIN CALCIUM 10 MG TAB PO SCH (09:22)
[2022-05-15] MEDS: FUROSEMIDE 40 MG/4 ML VIAL IV SCH ×2 (09:22→18:32)
[2022-05-15] MEDS: ENOXAPARIN INJ 40 MG/0.4 ML SYR SQ SCH ×2 (09:22→20:19)
[2022-05-15] MEDS: INSULIN ASPART PER UNIT SC SCH ×4 (09:22→21:24)
[2022-05-15] MEDS: MULTIVITAMIN TAB PO SCH (09:22)
[2022-05-15] MEDS: SPIRONOLACTONE 25 MG TAB PO SCH (09:53)
--- NOTE | 2022-05-15 11:26 | Cardiology Progress Note ---
Date of Service May 15, 2022 Assessment & Plan (1) Heart failure with preserved ejection fraction: (2) Right heart failure: (3) Severe calcific aortic stenosis: (4) Morbid obesity: (5) Cellulitis: Plan 61-year-old male with mild intellectual disorder with underlying issues of calcific aortic stenosis, severe, morbid obesity, uncontrolled hypertension who presented with increasing abdominal girth lower extremity edema with weeping and recent cellulitis. Exam consistent with acute on chronic diastolic heart failure with preserved ejection fraction right greater than left with increasing abdominal girth and lower extremity edema. Superimposed cellulitis. Initial screening studies do not reveal evidence of DVT Recommendations as per medical team regarding cellulitis. In addition would manifest diuresis with IV furosemide twice daily dosing low threshold for saba nolactone. Assess oxygenation levels and hypoventilation Will ultimately need outpatient evaluation by valve team 05/14/2022 Right heart failure clinically improving. BNP not reflective of clinical status given predominant right heart failure We will continue IV furosemide Add low-dose spironolactone beginning today Nocturnal oximetry will be ordered 05/15/2022 Right heart failure improving Continues to diurese well with good tolerance from renal function. Blood pressure is responding to diuresis Plan: Continue IV diuretics another 24 hours. Continue spironolactone Recommend oxygen supplementation nocturnally, will require formal sleep apnea evaluation Reduce lisinopril to 10 mg/day Admission and Anticipated Discharge Date Admission Date: May 13, 2022 Subjective Patient seen and examined, chart, medications, telemetry reviewed Continues to diurese well and feels well. Abdominal girth less distended lower extremity edema still with chronic stasis changes but improved Nocturnal oximetry last night demonstrate significant nocturnal desaturation likely secondary to hypoventilation syndrome Review of Systems Review of Systems: All systems reviewed & are unremarkable except as noted in Subjective Physical Exam Constitutional: + morbidly obese ENMT: external ear and nose normal, oropharynx normal Neck: + thick neck Respiratory: Auscultation: lungs clear to auscultation bilaterally and + diminished lung sounds Cardiovascular: Rate/Rhythm: regular rate and regular rhythm Heart Sounds: normal S1 and + murmur (Harsh grade 3/6); + abnormal S2 Extremities: + edema (3+ to above the knees with chronic stasis changes left greater than right) Gastrointestinal (Abdomen): Percussion/Palpation: abdomen nontender and no guarding Results & Data ([facility]) Vital Signs (Past 12 Hours) Vital Signs Temp Pulse Pulse Resp BP Pulse Ox Pulse Ox 05/15/22 11:06 36.6 C 85 18 142/83 H 95 05/15/22 06:13 36.5 C 88 18 109/76 99 05/15/22 03:13 84 92 05/15/22 02:43 36.5 C 91 H 18 110/75 97 O2 Del Method O2 Del Method O2 Flow Rate 05/15/22 11:06 Room Air 05/15/22 06:13 Nasal Cannula 2 05/15/22 03:13 Room Air 05/15/22 02:43 Room Air Laboratory Results Laboratory Results - last 24 hr 05/14/22 05/14/22 05/14/22 11:39 16:42 20:00 WBC RBC Hgb Hct MCV MCH MCHC RDW Std Deviation RDW Coeff of Analy Plt Count MPV Immature Gran % (Auto) Neut % (Auto) Lymph % (Auto) [place] % (Auto) Eos % (Auto) Baso % (Auto) Neut # (Auto) Lymph # (Auto) [place] # (Auto) Eos # (Auto) Baso # (Auto) Immature Gran # (Auto) Sodium Potassium Chloride Carbon Dioxide Anion Gap BUN Creatinine Est Cr Clr Drug Dosing Est GFR ( Amer) Est GFR (Non-Af Amer) BUN/Creatinine Ratio Glucose POC Glucose 121 H 114 H 106 H Calcium Magnesium 05/15/22 05/15/22 05/15/22 05:21 05:21 07:25 WBC 7.39 RBC 4.36 L Hgb 13.5 L Hct 41.2 MCV 94.5 MCH 31.0 MCHC 32.8 RDW Std Deviation 51.6 H RDW Coeff of Analy 14.8 H Plt Count 297 MPV 10.5 Immature Gran % (Auto) 1.2 Neut % (Auto) 63.3 Lymph % (Auto) 22.9 [place] % (Auto) 8.4 Eos % (Auto) 3.4 Baso % (Auto) 0.8 Neut # (Auto) 4.68 Lymph # (Auto) 1.69 [place] # (Auto) 0.62 Eos # (Auto) 0.25 Baso # (Auto) 0.06 Immature Gran # (Auto) 0.09 H Sodium 135 L Potassium 4.2 Chloride 99 Carbon Dioxide 30 Anion Gap 6 BUN 27 H Creatinine 1.16 Est Cr Clr Drug Dosing 94.6 Est GFR ( Amer) 78.3 Est GFR (Non-Af Amer) 67.6 BUN/Creatinine Ratio 23.3 H Glucose 137 H POC Glucose 138 H Calcium 9.7 Magnesium 2.1 (1) Cellulitis Laterality: left Site of cellulitis: extremity Site of cellulitis of extremity: lower extremity Qualified Code(s): L03.116 - Cellulitis of left lo wer limb
--- NOTE | 2022-05-15 12:57 | Hospitalist Progress Note ---
Date of Service May 15, 2022 Assessment & Plan (1) Cellulitis: Plan: Patient is 61-year-old male with PMH HTN, HLD, DM II, GERD, chronic venous stasis BLE, severe aortic stenosis, thoracic ascending aortic aneurysm, learning disability, obesity presented to ER with complaint of increased BLE edema x 2-3 weeks with left lower extremity tenderness and clear drainage Chronic venous stasis dermatitis. Possible superimposed acute cellulitis LLE In ER afebrile, vital stable, no leukocytosis, lactate and procalcitonin WNL Venous Doppler LLE: No DVT Been on Bactrim x3 days outpatient for LLE cellulitis Started on intravenous Rocephin with a plan to transition to Keflex on discharge The inflammation of the legs especially the left one has decreased a lot No fever and or chills Nocturnal desaturation Likely has sleep apnea/obesity hypoventilation syndrome Will need 2 L of oxygen continuously at nighttime Will need to have formal sleep study as an outpatient (2) Aortic valve stenosis: Plan: Denies any chest pain (3) Acute on chronic diastolic CHF (congestive heart failure): Plan: Increased BLE edema x 2-3 weeks with left worse than right leg BNP: 39 CXR: No DVT within the left lower extremity Reviewed outpatient echo 04/28/2022: EF: 66%, no wall motion abnormality, mild LVH, grade 1 diastolic dysfunction, severe aortic valve stenosis, proximal ascending thoracic aorta moderately enlarged Lasix 40 mg IV twice daily Cardiology consult. Recommended twice daily IV Lasix Will need outpatient cardiology/valve clinic follow-up Has been diuresing enough and denies any symptoms of fluid overload We will continue intravenous Lasix for another 24 hours as per private equity analyst (4) Hypertension: Plan: Stable Continue lisinopril, metoprolol tartrate The lisinopril dose has been decreased (5) Hyperlipidemia: Plan: Continue rosuvastatin (6) Type 2 diabetes mellitus: Plan: Not on outpatient medications A1c: 6.6 on 03/04/2022 per outpatient chart review Monitor BSG's NovoLog sliding scale correction factor only for now. Monitor may need to further adjust (7) GERD (gastroesophageal reflux disease): Plan: Continue PPI DVT Prophylaxis Lovenox SQ Full Code as per discussion with pt and pt's POA Follows with Dr Portillo for routine care Admission and Anticipated Discharge Date Admission Date: May 13, 2022 Subjective 05/14/2022 The patient was seen and examined in medical telemetry unit He has been feeling much better and denies any shortness of breath at rest No fever and no chills and his cellulitis and swelling of the legs are getting better 05/15/2022 The patient was seen and examined in telemetry unit He has been feeling much better He has had nocturnal pulse oximetry last night and he will require 2 L of oxygen at nighttime continuously to maintain saturation His legs are getting better Denies any fever and or chills and no shortness of breath at rest Review of Systems Review of Systems: All systems reviewed and are unremarkable except as noted below Physical Exam Physical Exam: Sitting on a chair without any acute distress Constitutional: well developed, well nourished, + ill appearing and + morbidly obese Eyes: PERRL, conjunctivae normal, anicteric sclerae ENMT: external ear and nose normal, oropharynx normal Neck: trachea midline, no thyromegaly Respiratory: no respiratory distress Auscultation: + diminished lung sounds and + crackles (Minimal bibasilar crackles) Cardiovascular: Rate/Rhythm: regular rate and regular rhythm; not tachycardic Heart Sounds: normal S1 and normal S2; no murmur Extremities: + edema (1+ edema bilaterally with chronic skin changes complicated by lymphedema) Gastrointestinal (Abdomen): Inspection/Auscultation: normal bowel sounds; abdomen not distended Percussion/Palpation: abdomen soft; abdomen nontender Musculoskeletal: No acute arthritis involving any joint Neurologic: moves all extremities; no focal motor deficits Lymphatic: no cervical or axillary lymphadenopathy Results & Data Results & Data ([facility]) Vital Signs (Past 12 Hours) Vital Signs Temp Pulse Pulse Resp BP Pulse Ox Pulse Ox 05/15/22 11:06 36.6 C 85 18 142/83 H 95 05/15/22 06:13 36.5 C 88 18 109/76 99 05/15/22 03:13 84 92 05/15/22 02:43 36.5 C 91 H 18 110/75 97 O2 Del Method O2 Del Method O2 Flow Rate 05/15/22 11:06 Room Air 05/15/22 06:13 Nasal Cannula 2 05/15/22 03:13 Room Air 05/15/22 02:43 Room Air Laboratory Results Short CBC 05/15/22 Range/Units 05:21 WBC 7.39 (4.8-10.8) K/ul Hgb 13.5 L (14.0-18.0) g/dl Hct 41.2 (40.1-51.0) % Plt Count 297 (130-400) K/uL [facility] 05/15/22 05:21 Sodium 135 L Potassium 4.2 Chloride 99 Carbon Dioxide 30 BUN 27 H Creatinine 1.16 Glucose 137 H Calcium 9.7 Medications Administered Current Inpatient Medications Acetaminophen (Acetaminophen 325 Mg Tab) 650 mg PO Q4H PRN PRN Reason: Pain or Fever Stop: 06/12/22 17:37 Last Admin: 05/15/22 09:21 Dose: 650 mg Dextrose (Dextrose 50% 50 Ml Syringe) 25 - 50 ml IV UD PRN; Protocol PRN Reason: Hypoglycemia Protocol Stop: 06/12/22 17:37 Enoxaparin Sodium (Enoxaparin Inj 40 Mg/0.4 Ml Syr) 40 mg SQ Q12 [facility] Stop: 06/12/22 18:59 Last Admin: 05/15/22 09:22 Dose: 40 mg Erythromycin (Erythromycin Op Oint 1 Gm Pkt) 1 appln OPL BID [facility] Stop: 05/24/22 20:59 Last Admin: 05/15/22 09:21 Dose: 1 appln Furosemide (Furosemide 40 Mg Tab) 40 mg PO BID17 [facility] Stop: 06/13/22 08:59 Furosemide (Furosemide 40 Mg/4 Ml Vial) 40 mg IV BID17 [facility] Stop: 06/13/22 08:59 Last Admin: 05/15/22 09:22 Dose: 40 mg Glucagon (Glucagon For Inj 1 Mg Vial) 1 mg SQ UD PRN; Protocol PRN Reason: Hypoglycemia Protocol Stop: 06/12/22 17:37 Glucose (Glucose 40% Gel 15 Gm Tube) 15 - 30 gm PO UD PRN; Protocol PRN Reason: Hypoglycemia Protocol Stop: 06/12/22 17:37 Glucose (Glucose 10 Tab/Tube) 4 - 8 tab PO UD PRN; Protocol PRN Reason: Hypoglycemia Treatment Stop: 06/12/22 17:37 Ceftriaxone Sodium 2,000 mg/ (Dextrose) 70 mls @ 100 mls/hr IV Q24H [facility]; Protocol Stop: 05/21/22 14:59 Last Infusion: 05/14/22 16:29 Dose: Infused Insulin Aspart (Insulin Aspart Per Unit) 0 units SC ACHS [facility] Stop: 06/12/22 17:59 Last Admin: 05/15/22 11:47 Dose: Not Given Lactic Acid (Ammonium Lactate 12% Lotion 225 Gm Btl) 1 gm EXT BID [facility] Stop: 06/13/22 20:59 Last Admin: 05/15/22 09:21 Dose: 1 gm Lisinopril (Lisinopril 10 Mg Tab) 10 mg PO DAILY [facility] Stop: 06/15/22 08:59 Loratadine (Loratadine 10 Mg Tab) 10 mg PO QAM [facility] Stop: 06/13/22 08:59 Last Admin: 05/15/22 09:21 Dose: 10 mg Magnesium Oxide (Magnesium Oxide 400 Mg Tab) 400 mg PO HS [facility] Stop: 06/12/22 20:59 Last Admin: 05/14/22 20:28 Dose: 400 mg Metoprolol Tartrate (Metoprolol Tartrate 50 Mg Tab) 50 mg PO BID [facility] Stop: 06/12/22 20:59 Last Admin: 05/15/22 09:21 Dose: 50 mg Miconazole Nitrate (Miconazole Nitrate Powder 43 Gm) 1 appln EXT PRN PRN PRN Reason: Affected Skin Folds Stop: 06/12/22 21:35 Last Admin: 05/14/22 09:32 Dose: 1 appln Miscellaneous (Carbohydrates For Hypoglycemia ) 15 - 30 gm PO UD PRN PRN Reason: Hypoglycemia Protocol Stop: 06/12/22 17:37 Multivitamins (Multivitamin Tab) [facility] [place] Stop: 06/13/22 08:59 Last Admin: 05/15/22 09:22 Dose: 1 tab Pantoprazole Sodium (Pantoprazole 40 Mg Tab) 40 mg PO [facility]; Protocol Stop: 06/13/22 08:59 Last Admin: 05/15/22 09:21 Dose: 40 mg Polyethylene Glycol (Polyethylene (Miralax) 17 Gm Pack) 17 gm PO DAILY PRN PRN Reason: Constipation Stop: 06/12/22 17:37 Potassium Chloride (Potassium Chloride Crtab 20 Meq Tabcr) 20 meq PO BID [facility] Stop: 06/12/22 20:59 Last Admin: 05/14/22 09:31 Dose: 20 meq Rosuvastatin Calcium (Rosuvastatin Calcium 10 Mg Tab) 10 mg PO QAM [facility] Stop: 06/13/22 08:59 Last Admin: 05/15/22 09:22 Dose: 10 mg Spironolactone (Spironolactone 25 Mg Tab) 25 mg PO [facility] Stop: 06/13/22 14:44 Last Admin: 05/15/22 09:53 Dose: 25 mg (1) Cellulitis Laterality: left Site of cellulitis: extremity Site of cellulitis of extremity: lower extremity Qualified Code(s): L03.116 - Cellulitis of left lower limb
[2022-05-15] MEDS: cefTRIAXone SODIUM 2,000 MG in DEXTROSE 5% 50 ML IV SCH (15:05)
[2022-05-15] MEDS: MAGNESIUM OXIDE 400 MG TAB PO SCH (20:20)
[2022-05-16 07:05] LABS: BUN Creatinine Ratio 28.9 (10-20); Calcium 9.8 mg/dl (8.5-10.1); Creatinine Clr Calc Pharmacy 80.7 ml/min; Est GFR (African American) 65.2 ml/min; Est GFR (Non-African American) 56.3 ml/min; Potassium 4.5 mmol/L (3.5-5.1)
[2022-05-16] MEDS: ACETAMINOPHEN 325 MG TAB PO PRN (10:07)
[2022-05-16] MEDS: AMMONIUM LACTATE 12% LOTION 225 GM BTL EXT SCH ×2 (10:07→21:41)
[2022-05-16] MEDS: lisinopril 10 MG TAB PO SCH (10:08)
[2022-05-16] MEDS: ROSUVASTATIN CALCIUM 10 MG TAB PO SCH (10:08)
[2022-05-16] MEDS: MULTIVITAMIN TAB PO SCH (10:08)
[2022-05-16] MEDS: METOPROLOL TARTRATE 50 MG TAB PO SCH ×2 (10:08→21:40)
[2022-05-16] MEDS: ERYTHROMYCIN OP OINT 1 GM PKT OPL SCH ×2 (10:08→21:41)
[2022-05-16] MEDS: SPIRONOLACTONE 25 MG TAB PO SCH (10:08)
[2022-05-16] MEDS: PANTOprazole 40 MG TAB PO SCH (10:09)
[2022-05-16] MEDS: ENOXAPARIN INJ 40 MG/0.4 ML SYR SQ SCH ×2 (10:09→21:41)
[2022-05-16] MEDS: INSULIN ASPART PER UNIT SC SCH ×4 (10:09→21:41)
[2022-05-16] MEDS: LORATADINE 10 MG TAB PO SCH (10:09)
--- NOTE | 2022-05-16 11:11 | Cardiology Progress Note ---
Date of Service May 16, 2022 Assessment & Plan (1) Heart failure with preserved ejection fraction: (2) Right heart failure: (3) Severe calcific aortic stenosis: (4) Morbid obesity: (5) Cellulitis: Plan 61-year-old male with mild intellectual disorder with underlying issues of calcific aortic stenosis, severe, morbid obesity, uncontrolled hypertension who presented with increasing abdominal girth lower extremity edema with weeping and recent cellulitis. Exam consistent with acute on chronic diastolic heart failure with preserved ejection fraction right greater than left with increasing abdominal girth and lower extremity edema. Superimposed cellulitis. Initial screening studies do not reveal evidence of DVT Recommendations as per medical team regarding cellulitis. In addition would manifest diuresis with IV furosemide twice daily dosing low threshold for saba nolactone. Assess oxygenation levels and hypoventilation Will ultimately need outpatient evaluation by valve team 05/14/2022 Right heart failure clinically improving. BNP not reflective of clinical status given predominant right heart failure We will continue IV furosemide Add low-dose spironolactone beginning today Nocturnal oximetry will be ordered 05/15/2022 Right heart failure improving Continues to diurese well with good tolerance from renal function. 05/16/2022 lab work now shows prerenal azotemia Blood pressure is responding to diuresis Plan: does not examine as volume overloaded would recommend restarting po lasix tomorrow d/c home with lasix 40mg po qam and 40mg prn pm for volume overload f/u bmp and with pcp in 1 week will see valve clinic as outpatient for aortic stenosis cont lisinopril 10mg ok to d/c to home from cardiac standpoint ok to change lovenox to Eliquis 5mg po bid upon discharge Admission and Anticipated Discharge Date Admission Date: May 13, 2022 Results & Data ([facility]) Vital Signs (Past 12 Hours) Vital Signs Temp Pulse Pulse Resp BP Pulse Ox O2 Del Method 05/16/22 07:50 36.5 C 92 H 16 98/66 L 100 Nasal Cannula 05/16/22 07:00 95 H 05/16/22 03:03 36.4 C L 91 H 20 123/57 L 98 Nasal Cannula 05/16/22 00:19 85 05/15/22 23:52 36.3 C L 86 20 119/74 99 Nasal Cannula O2 Flow Rate 05/16/22 07:50 2 05/16/22 07:00 05/16/22 03:03 2 05/16/22 00:19 05/15/22 23:52 2 (1) Cellulitis Laterality: left Site of cellulitis: extremity Site of cellulitis of extremity: lower extremity Qualified Code(s): L03.116 - Cellulitis of left lower limb
--- NOTE | 2022-05-16 13:10 | Hospitalist Progress Note ---
Date of Service May 16, 2022 Assessment & Plan (1) Cellulitis: Plan: Patient is 61-year-old male with PMH HTN, HLD, DM II, GERD, chronic venous stasis BLE, severe aortic stenosis, thoracic ascending aortic aneurysm, learning disability, obesity presented to ER with complaint of increased BLE edema x 2-3 weeks with left lower extremity tenderness and clear drainage Chronic venous stasis dermatitis. Possible superimposed acute cellulitis LLE In ER afebrile, vital stable, no leukocytosis, lactate and procalcitonin WNL Venous Doppler LLE: No DVT Been on Bactrim x3 days outpatient for LLE cellulitis Started on intravenous Rocephin with a plan to transition to Keflex on discharge The inflammation of the legs especially the left one has decreased a lot No fever and or chills Cellulitis has resolved almost We will continue oral antibiotic to finish the course for about 10 days in total Nocturnal desaturation Likely has sleep apnea/obesity hypoventilation syndrome Will need 2 L of oxygen continuously at nighttime Will need to have formal sleep study as an outpatient Not been using nasal cannula effectively due to mouth breathing-we will advise to breathe through the nose (2) Aortic valve stenosis: Plan: Denies any chest pain Outpatient cardiology evaluation (3) Acute on chronic diastolic CHF (congestive heart failure): Plan: Increased BLE edema x 2-3 weeks with left worse than right leg BNP: 39 CXR: No DVT within the left lower extremity Reviewed outpatient echo 04/28/2022: EF: 66%, no wall motion abnormality, mild LVH, grade 1 diastolic dysfunction, severe aortic valve stenosis, proximal ascending thoracic aorta moderately enlarged Lasix 40 mg IV twice daily Cardiology consult. Recommended twice daily IV Lasix Will need outpatient cardiology/valve clinic follow-up Has been diuresing enough and denies any symptoms of fluid overload We will continue intravenous Lasix for another 24 hours as per guest relations officer Will have oral Lasix 40 mg in the morning and 40 mg p.m. for volume overload Will get PT and OT evaluation and likely discharge tomorrow (4) Hypertension: Plan: Stable Continue lisinopril, metoprolol tartrate The lisinopril dose has been decreased-10 mg daily (5) Hyperlipidemia: Plan: Continue rosuvastatin (6) Type 2 diabetes mellitus: Plan: Not on outpatient medications A1c: 6.6 on 03/04/2022 per outpatient chart review Monitor BSG's NovoLog sliding scale correction factor only for now. Monitor may need to further adjust (7) GERD (gastroesophageal reflux disease): Plan: Continue PPI DVT Prophylaxis Lovenox SQ Full Code as per discussion with pt and pt's POA Follows with Dr Portillo for routine care Admission and Anticipated Discharge Date Admission Date: May 13, 2022 Subjective 05/14/2022 The patient was seen and examined in medical telemetry unit He has been feeling much better and denies any shortness of breath at rest No fever and no chills and his cellulitis and swelling of the legs are getting better 05/15/2022 The patient was seen and examined in telemetry unit He has been feeling much better He has had nocturnal pulse oximetry last night and he will require 2 L of oxygen at nighttime continuously to maintain saturation His legs are getting better Denies any fever and or chills and no shortness of breath at rest 05/16/2022 The patient was seen and examined in medical telemetry unit He has been feeling much better and denies any shortness of breath at rest His legs are improving No fever and no chills His saturation remains low likely secondary to mouth breathing and not using nasal cannula effectively Review of Systems Review of Systems: All systems reviewed and are unremarkable except as noted below Physical Exam Physical Exam: Sitting on a chair without any acute distress Constitutional: well developed, well nourished, + ill appearing and + morbidly obese Eyes: PERRL, conjunctivae normal, anicteric sclerae ENMT: external ear and nose normal, oropharynx normal Neck: trachea midline, no thyromegaly Respiratory: no respiratory distress Auscultation: + diminished lung sounds; no crackles (Minimal bibasilar crackles) Cardiovascular: Rate/Rhythm: regular rate and regular rhythm; not tachycardic Heart Sounds: normal S1 and normal S2; no murmur Extremities: + edema (1+ edema bilaterally with chronic skin changes complicated by lymphedema) Gastrointestinal (Abdomen): Inspection/Auscultation: normal bowel sounds; abdomen not distended Percussion/Palpation: abdomen soft; abdomen nontender Skin: Bilateral right leg redness with edema but no skin break and or drainage Neurologic: moves all extremities; no focal motor deficits Lymphatic: no cervical or axillary lymphadenopathy Results & Data Results & Data ([facility]) Vital Signs (Past 12 Hours) Vital Signs Temp Pulse Pulse Resp BP Pulse Ox O2 Del Method 05/16/22 12:09 36.7 C 70 16 133/86 96 Room Air 05/16/22 07:50 36.5 C 92 H 16 98/66 L 100 Nasal Cannula 05/16/22 07:00 95 H 05/16/22 03:03 36.4 C L 91 H 20 123/57 L 98 Nasal Cannula O2 Flow Rate 05/16/22 12:09 05/16/22 07:50 2 05/16/22 07:00 05/16/22 03:03 2 Laboratory Results [facility] 05/16/22 05:36 Sodium 136 Potassium 4.5 Chloride 98 Carbon Dioxide 32 BUN 39 H Creatinine 1.35 Glucose 129 H Calcium 9.8 Medications Administered Current Inpatient Medications Acetaminophen (Acetaminophen 325 Mg Tab) 650 mg PO Q4H PRN PRN Reason: Pain or Fever Stop: 06/12/22 17:37 Last Admin: 05/16/22 10:07 Dose: 650 mg Dextrose (Dextrose 50% 50 Ml Syringe) 25 - 50 ml IV UD PRN; Protocol PRN Reason: Hypoglycemia Protocol Stop: 06/12/22 17:37 Enoxaparin Sodium (Enoxaparin Inj 40 Mg/0.4 Ml Syr) 40 mg SQ Q12 [facility] Stop: 06/12/22 18:59 Last Admin: 05/16/22 10:09 Dose: 40 mg Erythromycin (Erythromycin Op Oint 1 Gm Pkt) 1 appln OPL BID [facility] Stop: 05/24/22 20:59 Last Admin: 05/16/22 10:08 Dose: 1 appln Furosemide (Furosemide 40 Mg Tab) 40 mg PO BID17 [facility] Stop: 06/13/22 08:59 Furosemide (Furosemide 40 Mg/4 Ml Vial) 40 mg IV BID17 [facility] Stop: 06/13/22 08:59 Last Admin: 05/15/22 18:32 Dose: 40 mg Glucagon (Glucagon For Inj 1 Mg Vial) 1 mg SQ UD PRN; Protocol PRN Reason: Hypoglycemia Protocol Stop: 06/12/22 17:37 Glucose (Glucose 40% Gel 15 Gm Tube) 15 - 30 gm PO UD PRN; Protocol PRN Reason: Hypoglycemia Protocol Stop: 06/12/22 17:37 Glucose (Glucose 10 Tab/Tube) 4 - 8 tab PO UD PRN; Protocol PRN Reason: Hypoglycemia Treatment Stop: 06/12/22 17:37 Ceftriaxone Sodium 2,000 mg/ (Dextrose) 70 mls @ 100 mls/hr IV Q24H [facility]; Protocol Stop: 05/21/22 14:59 Last Infusion: 05/15/22 15:44 Dose: Infused Insulin Aspart (Insulin Aspart Per Unit) 0 units SC ACHS [facility] Stop: 06/12/22 17:59 Last Admin: 05/16/22 12:26 Dose: Not Given Lactic Acid (Ammonium Lactate 12% Lotion 225 Gm Btl) 1 gm EXT BID [facility] Stop: 06/13/22 20:59 Last Admin: 05/16/22 10:07 Dose: 1 gm Lisinopril (Lisinopril 10 Mg Tab) 10 mg PO DAILY [facility] Stop: 06/15/22 08:59 Last Admin: 05/16/22 10:08 Dose: 10 mg Loratadine (Loratadine 10 Mg Tab) 10 mg PO QAM [facility] Stop: 06/13/22 08:59 Last Admin: 05/16/22 10:09 Dose: 10 mg Magnesium Oxide (Magnesium Oxide 400 Mg Tab) 400 mg PO HS [facility] Stop: 06/12/22 20:59 Last Admin: 05/15/22 20:20 Dose: 400 mg Metoprolol Tartrate (Metoprolol Tartrate 50 Mg Tab) 50 mg PO BID [facility] Stop: 06/12/22 20:59 Last Admin: 05/16/22 10:08 Dose: 50 mg Miconazole Nitrate (Miconazole Nitrate Powder 43 Gm) 1 appln EXT PRN PRN PRN Reason: Affected Skin Folds Stop: 06/12/22 21:35 Last Admin: 05/14/22 09:32 Dose: 1 appln Miscellaneous (Carbohydrates For Hypoglycemia ) 15 - 30 gm PO UD PRN PRN Reason: Hypoglycemia Protocol Stop: 06/12/22 17:37 [facility]ivit[facility] ([facility] Tab) [facility] Stop: 06/13/22 08:59 Last Admin: 05/16/22 10:08 Dose: 1 tab Pantoprazole Sodium (Pantoprazole 40 Mg Tab) 40 mg PO QAM [facility]; Protocol Stop: 06/13/22 08:59 Last Admin: 05/16/22 10:09 Dose: 40 mg Polyethylene Glycol (Polyethylene (Miralax) 17 Gm Pack) 17 gm PO DAILY PRN PRN Reason: Constipation Stop: 06/12/22 17:37 Potassium Chloride (Potassium Chloride Crtab 20 Meq Tabcr) 20 meq PO BID [facility] Stop: 06/12/22 20:59 Last Admin: 05/14/22 09:31 Dose: 20 meq Rosuvastatin Calcium (Rosuvastatin Calcium 10 Mg Tab) 10 mg PO QAM [facility] Stop: 06/13/22 08:59 Last Admin: 05/16/22 10:08 Dose: 10 mg Spironolactone (Spironolactone 25 Mg Tab) 25 mg PO QAM [facility] Stop: 06/13/22 14:44 Last Admin: 05/16/22 10:08 Dose: 25 mg (1) Cellulitis Laterality: left Site of cellulitis: extremity Site of cellulitis of extremity: lower extremity Qualified Code(s): L03.116 - Cellulitis of left lower limb
[2022-05-16] MEDS: cefTRIAXone SODIUM 2,000 MG in DEXTROSE 5% 50 ML IV SCH (15:41)
[2022-05-16] MEDS: MAGNESIUM OXIDE 400 MG TAB PO SCH (21:41)
[2022-05-17] MEDS: METOPROLOL TARTRATE 50 MG TAB PO SCH (08:19)
[2022-05-17] MEDS: AMMONIUM LACTATE 12% LOTION 225 GM BTL EXT SCH (08:19)
[2022-05-17] MEDS: MULTIVITAMIN TAB PO SCH (08:19)
[2022-05-17] MEDS: ROSUVASTATIN CALCIUM 10 MG TAB PO SCH (08:19)
[2022-05-17] MEDS: LORATADINE 10 MG TAB PO SCH (08:20)
[2022-05-17] MEDS: SPIRONOLACTONE 25 MG TAB PO SCH (08:20)
[2022-05-17] MEDS: PANTOprazole 40 MG TAB PO SCH (08:20)
[2022-05-17] MEDS: ERYTHROMYCIN OP OINT 1 GM PKT OPL SCH (08:20)
[2022-05-17] MEDS: lisinopril 10 MG TAB PO SCH (08:20)
[2022-05-17] MEDS: ENOXAPARIN INJ 40 MG/0.4 ML SYR SQ SCH (08:20)
[2022-05-17] MEDS: INSULIN ASPART PER UNIT SC SCH ×3 (08:22→16:43)
--- NOTE | 2022-05-17 14:48 | Hospitalist Progress Note ---
Date of Service May 17, 2022 Assessment & Plan (1) Cellulitis: Plan: Patient is 61-year-old male with PMH HTN, HLD, DM II, GERD, chronic venous stasis BLE, severe aortic stenosis, thoracic ascending aortic aneurysm, learning disability, obesity presented to ER with complaint of increased BLE edema x 2-3 weeks with left lower extremity tenderness and clear drainage Chronic venous stasis dermatitis. Possible superimposed acute cellulitis LLE In ER afebrile, vital stable, no leukocytosis, lactate and procalcitonin WNL Venous Doppler LLE: No DVT Been on Bactrim x3 days outpatient for LLE cellulitis Started on intravenous Rocephin with a plan to transition to Keflex on discharge The inflammation of the legs especially the left one has decreased a lot No fever and or chills Cellulitis has resolved almost We will continue oral antibiotic to finish the course for about 10 days in total Will be discharged home on oral Keflex and Bactrim DS will be discontinued He will use Lac-Hydrin lotion for chronic skin changes secondary to lymphedema, chronic venous stasis and chronic edema Nocturnal desaturation Likely has sleep apnea/obesity hypoventilation syndrome Will need 2 L of oxygen continuously at nighttime Will need to have formal sleep study as an outpatient Not been using nasal cannula effectively due to mouth breathing-we will advise to breathe through the nose Continue oxygen at night (2) Aortic valve stenosis: Plan: Denies any chest pain Outpatient cardiology evaluation (3) Acute on chronic diastolic CHF (congestive heart failure): Plan: Increased BLE edema x 2-3 weeks with left worse than right leg BNP: 39 CXR: No DVT within the left lower extremity Reviewed outpatient echo 04/28/2022: EF: 66%, no wall motion abnormality, mild LVH, grade 1 diastolic dysfunction, severe aortic valve stenosis, proximal ascending thoracic aorta moderately enlarged Lasix 40 mg IV twice daily Cardiology consult. 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 for volume overload Will get PT and OT evaluation and likely discharge tomorrow Will be discharged home this afternoon (4) Hypertension: Plan: Stable Continue lisinopril, metoprolol tartrate The lisinopril dose has been decreased-10 mg daily (5) Hyperlipidemia: Plan: Continue rosuvastatin (6) Type 2 diabetes mellitus: Plan: Not on outpatient medications A1c: 6.6 on 03/04/2022 per outpatient chart review Monitor BSG's NovoLog sliding scale correction factor only for now. Monitor may need to furth er adjust (7) GERD (gastroesophageal reflux disease): Plan: Continue PPI DVT Prophylaxis Lovenox SQ Full Code as per discussion with pt and pt's POA Follows with Dr Portillo for routine care Admission and Anticipated Discharge Date Admission Date: May 13, 2022 Subjective 05/14/2022 The patient was seen and examined in medical telemetry unit He has been feeling much better and denies any shortness of breath at rest No fever and no chills and his cellulitis and swelling of the legs are getting better 05/15/2022 The patient was seen and examined in telemetry unit He has been feeling much better He has had nocturnal pulse oximetry last night and he will require 2 L of oxygen at nighttime continuously to maintain saturation His legs are getting better Denies any fever and or chills and no shortness of breath at rest 05/16/2022 The patient was seen and examined in medical telemetry unit He has been feeling much better and denies any shortness of breath at rest His legs are improving No fever and no chills His saturation remains low likely secondary to mouth breathing and not using nasal cannula effectively 05/17/2022 Patient was seen and examined in medical telemetry unit He has been stable and feeling a lot better Denies any chest pain, shortness of breath or palpitation His legs are much improved and there is no evidence of drainage and/or increasing redness Review of Systems Review of Systems: All systems reviewed and are unremarkable except as noted below Physical Exam Physical Exam: Sitting on a chair without any acute distress Constitutional: well developed, well nourished, + ill appearing and + morbidly obese Eyes: PERRL, conjunctivae normal, anicteric sclerae ENMT: external ear and nose normal, oropharynx normal Neck: trachea midline, no thyromegaly Respiratory: no respiratory distress Auscultation: + diminished lung sounds; no crackles (Minimal bibasilar crackles) Cardiovascular: Rate/Rhythm: regular rate and regular rhythm; not tachycardic Heart Sounds: normal S1 and normal S2; no murmur Extremities: + edema (1+ edema bilaterally with chronic skin changes complicated by lymphedema) Gastrointestinal (Abdomen): Inspection/Auscultation: normal bowel sounds; abdomen not distended Percussion/Palpation: abdomen soft; abdomen nontender Musculoskeletal: No acute arthritis in any joint Neurologic: moves all extremities; no focal motor deficits Lymphatic: no cervical or axillary lymphadenopathy Results & Data Results & Data ([facility]) Vital Signs (Past 12 Hours) Vital Signs Temp Pulse Pulse Resp BP Pulse Ox O2 Del Method 05/17/22 10:49 36.8 C 75 18 140/81 95 Room Air 05/17/22 08:00 Room Air 05/17/22 07:56 36.5 C 89 18 110/73 98 Room Air 05/17/22 07:23 83 Medications Administered Current Inpatient Medications Acetaminophen (Acetaminophen 325 Mg Tab) 650 mg PO Q4H PRN PRN Reason: Pain or Fever Stop: 06/12/22 17:37 Last Admin: 05/16/22 10:07 Dose: 650 mg Dextrose (Dextrose 50% 50 Ml Syringe) 25 - 50 ml IV UD PRN; Protocol PRN Reason: Hypoglycemia Protocol Stop: 06/12/22 17:37 Enoxaparin Sodium (Enoxaparin Inj 40 Mg/0.4 Ml Syr) 40 mg SQ Q12 [facility] Stop: 06/12/22 18:59 Last Admin: 05/17/22 08:20 Dose: 40 mg Erythromycin (Erythromycin Op Oint 1 Gm Pkt) 1 appln OPL BID [facility] Stop: 05/24/22 20:59 Last Admin: 05/17/22 08:20 Dose: 1 appln Furosemide (Furosemide 40 Mg Tab) 40 mg PO BID17 [facility] Stop: 06/13/22 08:59 Furosemide (Furosemide 40 Mg/4 Ml Vial) 40 mg IV BID17 [facility] Stop: 06/13/22 08:59 Last Admin: 05/15/22 18:32 Dose: 40 mg Glucagon (Glucagon For Inj 1 Mg Vial) 1 mg SQ UD PRN; Protocol PRN Reason: Hypoglycemia Protocol Stop: 06/12/22 17:37 Glucose (Glucose 40% Gel 15 Gm Tube) 15 - 30 gm PO UD PRN; Protocol PRN Reason: Hypoglycemia Protocol Stop: 06/12/22 17:37 Glucose (Glucose 10 Tab/Tube) 4 - 8 tab PO UD PRN; Protocol PRN Reason: Hypoglycemia Treatment Stop: 06/12/22 17:37 Ceftriaxone Sodium 2,000 mg/ (Dextrose) 70 mls @ 100 mls/hr IV Q24H [facility]; Protocol Stop: 05/21/22 14:59 Last Admin: 05/17/22 14:55 Dose: 100 mls/hr Insulin Aspart (Insulin Aspart Per Unit) 0 units SC ACHS [facility] Stop: 06/12/22 17:59 Last Admin: 05/17/22 11:44 Dose: Not Given Lactic Acid (Ammonium Lactate 12% Lotion 225 Gm Btl) 1 gm EXT BID [facility] Stop: 06/13/22 20:59 Last Admin: 05/17/22 08:19 Dose: 1 gm Lisinopril (Lisinopril 10 Mg Tab) 10 mg PO DAILY [facility] Stop: 06/15/22 08:59 Last Admin: 05/17/22 08:20 Dose: 10 mg Loratadine ([facility] 10 Mg Tab) [facility] Stop: 06/13/22 08:59 Last Admin: 05/17/22 08:20 Dose: 10 mg Magnesium Oxide (Magnesium Oxide 400 Mg Tab) 400 mg PO HS [facility] Stop: 06/12/22 20:59 Last Admin: 05/16/22 21:41 Dose: 400 mg Metoprolol Tartrate (Metoprolol Tartrate 50 Mg Tab) 50 mg PO BID [facility] Stop: 06/12/22 20:59 Last Admin: 05/17/22 08:19 Dose: 50 mg Miconazole Nitrate (Miconazole Nitrate Powder 43 Gm) 1 appln EXT PRN PRN PRN Reason: Affected Skin Folds Stop: 06/12/22 21:35 Last Admin: 05/14/22 09:32 Dose: 1 appln Miscellaneous (Carbohydrates For Hypoglycemia ) 15 - 30 gm PO UD PRN PRN Reason: Hypoglycemia Protocol Stop: 06/12/22 17:37 Multivitamins (Multivitamin Tab) 1 tab PO QAM [facility] Stop: 06/13/22 08:59 Last Admin: 05/17/22 08:19 Dose: 1 tab Pantoprazole Sodium (Pantoprazole 40 Mg Tab) 40 mg PO QAM [facility]; Protocol Stop: 06/13/22 08:59 Last Admin: 05/17/22 08:20 Dose: 40 mg Polyethylene Glycol (Polyethylene (Miralax) 17 Gm Pack) 17 gm PO DAILY PRN PRN Reason: Constipation Stop: 06/12/22 17:37 Potassium Chloride (Potassium Chloride Crtab 20 Meq Tabcr) 20 meq PO BID [facility] Stop: 06/12/22 20:59 Last Admin: 05/14/22 09:31 Dose: 20 meq Rosuvastatin Calcium (Rosuvastatin Calcium 10 Mg Tab) 10 mg PO QAM [facility] Stop: 06/13/22 08:59 Last Admin: 05/17/22 08:19 Dose: 10 mg Spironolactone (Spironolactone 25 Mg Tab) 25 mg PO QAM [facility] Stop: 06/13/22 14:44 Last Admin: 05/17/22 08:20 Dose: 25 mg (1) Cellulitis Laterality: left Site of cellulitis: extremity Site of cellulitis of extremity: lower extremity Qualified Code(s): L03.116 - Cellulitis of left lower limb
[2022-05-17] MEDS: cefTRIAXone SODIUM 2,000 MG in DEXTROSE 5% 50 ML IV SCH (14:55)
--- NOTE | 2022-05-18 07:36 | Discharge Summary ---
Date of Service May 17, 2022 Admission HPI Per Admitting Provider Patient is 61-year-old male with PMH HTN, HLD, DM II, GERD, chronic venous stasis BLE, severe aortic stenosis, thoracic ascending aortic aneurysm, learning disability, obesity presented to ER with complaint of left lower extremity swelling. History obtained from patient, patient's POA, and chart review. Patient with chronic bilateral lower extremity edema however reports increased edema over the past 2-3 weeks. Left leg has been worse with erythema and tenderness. Does not weight himself regularly. He was seen at PCPs office 05/10/2022 for LLE erythema edema and discomfort. Was diagnosed with cellulitis and started on Bactrim. Hasn't noticed a difference in the appearance of his legs. Denies fever/chills. Seen in cardiology clinic today and concern for DVT as well as acute on chronic CHF and was referred to ER. Patient has chronic orthopnea. Sleeps in recliner. Denies diaphoresis, N/V/D/C, ROBERTO, dizziness, syncope, vision changes, neck pain, CP, increased SOB or orthopnea, palpitations, cough, sore throat, choking, otalgia, rhinorrhea, abdominal pain, paresthesias, weakness, extremity weakness, other rashes, urinary symptoms. Admission Exam Per Admitting Provider Physical Exam: General: no distress, +obese Head: normocephalic, atraumatic Eyes: conjunctiva non-injected, anicteric ENT: normal inspection external ears, nose, mucous membranes moist Neck: supple, trachea midline Lungs: clear, no respiratory distress, no wheezing/rhonchi/rales CV: Tachycardia, rate 102, regular rhythm, + murmur, + pretibial edema bilateral Abd: normal BS, soft, non-tender Ext: no cyanosis, no calf tenderness; RLE: +edema, brown discoloration and erythema, LLE: +edema, brown discoloration and erythema, lateral aspect with serous drainage and mild tenderness to palpation Neuro: A&O x 3, no focal deficits noted, normal affect Skin: warm, dry; as above in extremities Principal Diagnosis Left leg cellulitis, bilateral leg edema with lymphedema, acute on chronic diastolic heart failure, aortic stenosis, nocturnal desaturation Discharge Exam Sitting on a chair without any acute distress Constitutional well developed, well nourished, + ill appearing and + morbidly obese Eyes PERRL, conjunctivae normal, anicteric sclerae ENMT external ear and nose normal, oropharynx normal Neck trachea midline, no thyromegaly Respiratory no respiratory distress Auscultation: + diminished lung sounds; no crackles (Minimal bibasilar crackles) Cardiovascular Rate/Rhythm: regular rate and regular rhythm; not tachycardic Heart Sounds: normal S1 and normal S2; no murmur Extremities: + edema (1+ edema bilaterally with chronic skin changes complicated by lymphedema) Gastrointestinal (Abdomen) Inspection/Auscultation: normal bowel sounds; abdomen not distended Percussion/Palpation: abdomen soft; abdomen nontender Neurologic moves all extremities; no focal motor deficits Lymphatic no cervical or axillary lymphadenopathy Discharge Data Allergies Allergy/AdvReac Type Severity Reaction Status Date / Time doxycycline Allergy Intermediate Rash Verified 05/13/22 14:56 losartan [From Cozaar] Allergy Intermediate Rash Verified 05/13/22 14:56 Penicillins Allergy Intermediate Hives Verified 05/13/22 14:56 valsartan Allergy Intermediate Rash Verified 05/13/22 14:56 Consultations 05/13/22 14:40 ED Decision to Admit Stat 05/13/22 17:38 Consult Cardiology Routine Ordered Studies 05/13/22 10:42 US venous doppler LE LT Stat Hospital Course (1) Cellulitis: Patient is 61-year-old male with PMH HTN, HLD, DM II, GERD, chronic venous stasis BLE, severe aortic stenosis, thoracic ascending aortic aneurysm, learning disability, obesity presented to ER with complaint of increased BLE edema x 2-3 weeks with left lower extremity tenderness and clear drainage Chronic venous stasis dermatitis. Possible superimposed acute cellulitis LLE In ER afebrile, vital stable, no leukocytosis, lactate and procalcitonin WNL Venous Doppler LLE: No DVT Been on Bactrim x3 days outpatient for LLE cellulitis Started on intravenous Rocephin with a plan to transition to Keflex on discharge The inflammation of the legs especially the left one has decreased a lot No fever and or chills Cellulitis has resolved almost We will continue oral antibiotic to finish the course for about 10 days in total Will be discharged home on oral Keflex and Bactrim DS will be discontinued He will use Lac-Hydrin lotion for chronic skin changes secondary to lymphedema, chronic venous stasis and chronic edema Nocturnal desaturation Likely has sleep apnea/obesity hypoventilation syndrome Will need 2 L of oxygen continuously at nighttime Will need to have formal sleep study as an outpatient Not been using nasal cannula effectively due to mouth breathing-we will advise to breathe through the nose Continue oxygen at night (2) Aortic valve stenosis: Denies any chest pain Outpatient cardiology evaluation (3) Acute on chronic diastolic CHF (congestive heart failure): Increased BLE edema x 2-3 weeks with left worse than right leg BNP: 39 CXR: No DVT within the left lower extremity Reviewed outpatient echo 04/28/2022: EF: 66%, no wall motion abnormality, mild LVH, grade 1 diastolic dysfunction, severe aortic valve stenosis, proximal ascending thoracic aorta moderately enlarged Lasix 40 mg IV twice daily Cardiology consult. 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 for volume overload Will get PT and OT evaluation and likely discharge tomorrow Will be discharged home this afternoon (4) Hypertension: Stable Continue lisinopril, metoprolol tartrate The lisinopril dose has been decreased-10 mg daily (5) Hyperlipidemia: Continue rosuvastatin (6) Type 2 diabetes mellitus: Not on outpatient medications A1c: 6.6 on 03/04/2022 per outpatient chart review Monitor BSG's NovoLog sliding scale correction factor only for now. Monitor may need to further adjust (7) GERD (gastroesophageal reflux disease): Continue PPI DVT Prophylaxis Lovenox SQ Full Code as per discussion with pt and pt's POA Follows with Dr Portillo for routine care Total Time Total Time Spent Total Time Spent (In Minutes): 40 minutes Discharge Plan Discharge Items Patient Disposition: Home - Self-Care Reason For Visit: cellulitis Discharge Diagnosis: Left leg cellulitis, bilateral leg edema with lymphedema, acute on chronic diastolic heart failure, aortic stenosis, nocturnal desaturation Condition on Discharge: Fair Activity: Resume your previous activity Non-emergency contact: Primary Care Provider Call non-emergency contact if: you have any medication questions and your symptoms worsen Follow-up/Referrals: Jean-Pierre Portillo MD [Primary Care Provider] - (Date & Time 05/24/2022 9:00 AM Provider Bobby Burns PA-C Department General Internal Medicine [facility] ) Diet: Carb Consistent or DM2 Fluids: 1800ml (7 cups) Addtl Attending Provider Instructions: Please take precautions to avoid fall Take your medications as advised You need to have a sleep study as an outpatient to rule out sleep apnea Please give appointment with your healthcare provider-Check BMP in 1 week Try to keep your legs elevated while sleeping Reduce fluid intake to 1800 mL a day Continue oxygen at nighttime as advised Pending Studies at Discharge: No Stand-Alone Forms: My [facility] [employer], Smoking Cessation Medications and DC Order Prescriptions: New spironolactone 25 mg Tablet 25 mg PO QAM 30 Days Qty: 30 0RF lisinopril 10 mg Tablet 10 mg PO DAILY 30 Days Qty: 30 0RF erythromycin 5 mg/gram (0.5 %) Ointment 1 applic OPL BID 5 Days Qty: 1 0RF ammonium lactate 12 % lotion 1 applic topical BID Qty: 225 0RF Eliquis 5 mg tablet 5 mg PO BID Qty: 60 0RF cephalexin 500 mg capsule 500 mg PO TID 7 Days Qty: 21 0RF Continued rosuvastatin [Crestor] 10 mg Tablet 10 mg PO QAM furosemide 40 mg Tablet 40 mg PO QAM Qty: 30 0RF Rx Instructions: 40 mg in the afternoon for any weight gain of 2 to 3 pounds. metoprolol tartrate 50 mg Tablet 50 mg PO BID Qty: 60 0RF multivitamin Tablet 1 tab PO QAM loratadine [Claritin] 10 mg Tablet 10 mg PO QAM omeprazole 20 mg Tablet,Delayed Release (Dr/Ec) 20 mg PO QAM magnesium oxide 400 mg magnesium Tablet 400 mg PO HS Discontinued lisinopril 20 mg Tablet 20 mg PO DAILY sulfamethoxazole-trimethoprim 800-160 mg tablet 1 tab PO BID Rx Instructions: STARTED 05/10/22 WITH PM DOSE, FOR 7 DAYS. potassium chloride [Klor-Con M20] 20 mEq tablet,ER particles/crystals 20 meq PO BID Discharge Orders: Discharge Order (Routine); Ordered 05/17/22 Ordered By: Ivis Cueva/Other Patient Handouts: High Blood Sugar (Hyperglycemia), Managing Type 2 Diabetes Admission Data Admit Date/Time: 05/13/22 15:22 Attending Provider: Ivis Pena Admit Provider: Ivis Pena Primary Care Provider: Jean-Pierre Portillo Other Providers: Ivis Pena ; Bradley Sun Other Interventions: Discharge Summary Assessment (RN) Last Done: 05/17/22 15:09
[2022-05-18] MEDS ORDERED: FUROSEMIDE 40 MG TAB PO SCH (09:00)
== END 2022-05-17 17:21 | disposition home or self-care (01) | DRG 602 ==
LOC: ED 10:35 → EDINP 15:22 → 2N 21:36

== ENCOUNTER 2022-10-03 20:25 | Inpatient (IN) ==
--- NOTE | 2022-10-03 22:10 | Emergency Department Note ---
Impression & Plan Cellulitis of left leg, Tachycardia, Edema of both lower extremities ED Provider Note CHIEF COMPLAINT: Lower extremity edema, left greater than right HISTORY OF PRESENT ILLNESS: This 61-year-old male patient presents to the emergency department via private vehicle for evaluation of lower extremity edema, left greater than right. Patient states symptoms began about 2 to 3 weeks ago. Tonight, he scratched the lower leg and noticed some increase in the bloody discharge. He states the pain and swelling seems to be worsening on the left and he decided to come to the emergency department for evaluation. The patient does have chronic shortness of breath associated with a "heart conditio n", and denies any new shortness of breath. He denies any fever or chills. No nausea or vomiting. No chest pain or dizziness. No abdominal pain. Patient states he is awaiting aortic valve replacement to be completed soon REVIEW OF SYSTEMS: A 10 system review of systems was performed with positives and pertinent negatives listed in the history of present illness. All other systems were reviewed and are negative. ALLERGIES: Doxycycline, losartan, penicillin, valsartan PHYSICAL EXAM: VITALS: Vitals are noted on the nurse's note and reviewed by myself. Vital signs stable. GENERAL: This is a 61-year-old male, in no acute distress, nondiaphoretic, well- developed well-nourished. SKIN: Bilateral lower extremity edema. The left lower extremity is erythematous and weeping with bloody serosanguineous discharge. There are excoriations. The skin is extremely dry. The skin was without rashes, erythema, edema, or bruising. There is no tenting of the skin. Capillary refill less than 2 seconds. HEAD: Normocephalic atraumatic. EYES: Conjunctivae without injection, sclerae without icterus. NECK: Supple without nuchal rigidity. No lymphadenopathy. No JVD. HEART: Regular rate and rhythm without murmurs gallops or rubs. LUNGS: Clear to auscultation bilaterally without wheezes, rales or rhonchi. No retractions or accessory muscle use. ABDOMEN: Positive bowel sounds x 4. Soft, nontender, without masses or organomegaly. No guarding or rebound tenderness. MUSCULOSKELETAL: No muscle atrophy, erythema, or edema noted. Full range of motion without joint tenderness in all extremities. No tenderness to palpation. Normal gait. Strength 5/5 throughout. NEURO: Patient was alert and oriented to person place and time. No focal neurological deficits. RADIOLOGY: Chest x-ray. Findings: A chest x-ray was performed and revealed cardiomegaly, no pneumothorax, infiltrate, per my interpretation. EMERGENCY DEPARTMENT COURSE: The patient was seen and evaluated as above. IV a ccess obtained, labs drawn. Labs reviewed by myself. No leukocytosis, anemia, thrombocytopenia. Creatinine elevated at 1.95. Hepatic function and electrolytes without significant abnormality. Patient was medicated with IV Rocephin. Ultrasound performed and reviewed by radiologist as noted. I d iscussed findings with the patient at bedside. I am concerned for a cellulitis of the left posterior calf given the physical exam findings. I recommended inpatient care. The patient was agreeable. I did discuss case with my attending physician, Dr. Manzano, who was agreeable as well. He did see and evaluate the patient. I discussed case with the territory outside sales manager. I spoke with Dr. Zeng, [facility] hospitalist physician. He did agree to see and evaluate the patient for admission. Please see hospitalist dictation regarding ongoing management care of this patient. Differential diagnosis includes cellulitis, abscess, MRSA infection, DVT, necrotizing fasciitis, dermatitis, drug eruption, CHF, allergic reaction, as well as other pathologies. I attest that I have personally reviewed the patient's current medication list. Patient was found to have normal blood pressure on screening and does not require follow-up. The chart was completed utilizing [employer] Speech voice recognition software. Grammatical errors, random word insertions, pronoun errors, and incomplete sentences are an occasional consequence of this system due to software limitations, ambient noise, and hardware issues. Any formal questions or concerns about the content, text, or information contained within the body of this dictation should be directly addressed to the provider for clarification. Past Med/Surg History Medical History Aortic root enlargement Under surveillance by [facility] cardio Aortic valve stenosis borderline severe, echo every 6 months per [facility] cardio Ascending aortic aneurysm moderate 4.5 cm Chronic venous stasis dermatitis GERD (gastroesophageal reflux disease) Hyperlipidemia Hypertension Intellectual disability needs help with meds/someone cleans house for him Morbid obesity with BMI of 45.0-49.9, adult Type 2 diabetes mellitus diet controlled, no meds, dx listed in S records Surgical History History of esophagogastroduodenoscopy (EGD) History of tonsillectomy S/P colonoscopy S/P endoscopy EUS ([facility] 12/2021) inconclusive findings. Family History Other No family history of adverse response to anesthesia Social History Smoking Status: Never smoker Second Hand Exposure: No; Do You Dip or Chew Tobacco: No; Hx Alcohol Use: No Hx Substance Use: No Preferred Language: Greenlandic Communication Ability: Effective Communication Ability Comment: pt is able to sign own consents Visual Impairment: No Limitations Hearing Ability: Normal Odd Ticket Clerk Required: No Beliefs That Will Affect Care: None marital status: Single Current Living Situation: Alone Current Living Situation Comment: BILL GATICA COMES TO VISIT DAILY- HAS HELP CLEANING How many Children do You have: 0 Feels Safe at Home: Yes Diet: low salt caffeine: No Assistive Devices: Walker Allergies Allergies Allergy/AdvReac Type Severity Reaction Status Date / Time doxycycline Allergy Intermediate Rash Verified 10/03/22 23:12 losartan [From Cozaar] Allergy Intermediate Rash Verified 10/03/22 23:12 Penicillins Allergy Intermediate Hives Verified 10/03/22 23:12 valsartan Allergy Intermediate Rash Verified 10/03/22 23:12 Home Meds Home Medications Medication Instructions Recorded Confirmed loratadine 10 mg tablet (Claritin) 10 mg PO QAM 02/16/21 10/03/22 magnesium oxide 400 mg PO QAM 02/16/21 10/03/22 multivitamin 1 tab PO QAM 02/16/21 10/03/22 omeprazole 20 mg tablet,delayed 20 mg PO QAM 02/16/21 10/03/22 release rosuvastatin 10 mg tablet (Crestor) 10 mg PO QAM 12/29/21 10/03/22 furosemide 40 mg tablet 40 mg PO BID 07/12/22 10/03/22 lisinopril 10 mg tablet 10 mg PO DAILY 07/12/22 10/03/22 spironolactone 25 mg tablet 25 mg PO DAILY 07/12/22 10/03/22 (Aldactone) levothyroxine 100 mcg tablet 100 mcg PO DAILYBB 10/03/22 10/03/22 Previous Rx's Medication Instructions Recorded metoprolol tartrate 50 mg tablet 50 mg PO BID #60 tabs 12/25/20 ammonium lactate 12 % lotion 1 applic topical BID #225 grams 05/17/22 Results & Data (ED) Vital Signs Vital Signs - 24 hr 10/03/22 20:30 10/03/22 22:30 10/04/22 00:30 Temperature 36.7 C Temperature Source Oral Pulse Rate 101 H Pulse Rate [Right Finger] 104 H 102 H Pulse Rhythm [Right Finger] Regular Respiratory Rate 18 16 16 Respiratory Effort / Characteristics Non-Labored Spontaneous Non-Labored Spontaneous Respiratory Depth Normal Normal Respiratory Pattern Regular Blood Pressure 126/82 Blood Pressure [Left Arm] 105/72 110/74 Blood Pressure Mean 96 Blood Pressure Mean [Left Arm] 83 86 Pulse Oximetry 97 99 99 Oxygen Delivery Method Room Air Room Air Room Air Sepsis Recent Fever Within 48 Hours No Sepsis New/Unexplained Change in Mental Status N/A Sepsis Action Taken by Nursing No Action Required Laboratory Data 10/03/22 23:15 10/03/22 20:33 Lab Results 10/03/22 10/03/22 10/03/22 Range/Units 20:33 21:46 23:15 WBC 6.79 (4.8-10.8) K/ul RBC 3.86 L (4.70-6.10) M/uL Hgb 11.6 L (14.0-18.0) g/dl Hct 35.6 L (42.0-52.0) % MCV 92.2 (80.0-100.0) fL MCH 30.1 (25.0-34.0) pg MCHC 32.6 (32.0-36.0) g/dL RDW Std Deviation 51.4 H (36.4-46.3) fL RDW Coeff of Analy 15.1 H (11.5-14.5) % Plt Count 207 (130-400) K/uL MPV 10.8 (9.4-12.4) fL Immature Gran % (Auto) 0.3 % Neut % (Auto) 67.4 % Lymph % (Auto) 16.1 % Addison % (Auto) 10.6 % Eos % (Auto) 4.7 % Baso % (Auto) 0.9 % Neut # (Auto) 4.58 (1.40-6.50) K/uL Lymph # (Auto) 1.09 L (1.2-3.4) K/uL Addison # (Auto) 0.72 H (0.11-0.59) K/uL Eos # (Auto) 0.32 (0-0.50) K/uL Baso # (Auto) 0.06 (0-0.2) K/uL Immature Gran # (Auto) 0.02 (0.01-0.20) K/uL PT (9.0-12.0) Seconds INR (0.9-1.1) APTT (21.0-31.0) Seconds PTT Ratio Sodium 138 (136-145) mmol/L Potassium 4.3 (3.5-5.1) mmol/L Chloride 106 (98-107) mmol/L Carbon Dioxide 23 (21-32) mmol/L Anion Gap 9 (3-11) BUN 59 H (6-23) mg/dl Creatinine 1.95 H (0.6-1.4) mg/dl Est Cr Clr Drug Dosing 56.7 ml/min Est GFR ( Amer) 41.8 ml/min Est GFR (Non-Af Amer) 36.1 ml/min BUN/Creatinine Ratio 30.3 H (10-20) Glucose 104 H (70-99(Fasting)) mg/dl Calcium 9.2 (8.6-10.3) mg/dl Magnesium 2.2 (1.7-2.4) mg/dl Total Bilirubin 0.3 (0.2-1.0) mg/dl AST 23 (13-39) U/L ALT 17 (7-52) U/L Alkaline Phosphatase 70 (34-104) U/L Troponin I High Sens 7.4 (0-20) pg/ml B-Natriuretic Peptide (0-100) pg/ml Total Protein 7.9 (6.0-8.3) gm/dl Albumin 4.0 (3.4-5.0) gm/dl Globulin 3.9 (2.5-4.0) gm/dl Albumin/Globulin Ratio 1.0 (0.9-2) Procalcitonin < 0.05 (0-0.5) ng/ml SARS-CoV-2, RNA, NAAT (NEGATIVE) 10/03/22 10/03/22 10/03/22 Range/Units 23:15 23:15 23:15 WBC (4.8-10.8) K/ul RBC (4.70-6.10) M/uL Hgb (14.0-18.0) g/dl Hct (42.0-52.0) % MCV (80.0-100.0) fL MCH (25.0-34.0) pg MCHC (32.0-36.0) g/dL RDW Std Deviation (36.4-46.3) fL RDW Coeff of Analy (11.5-14.5) % Plt Count (130-400) K/uL MPV (9.4-12.4) fL Immature Gran % (Auto) % Neut % (Auto) % Lymph % (Auto) % Addison % (Auto) % Eos % (Auto) % Baso % (Auto) % Neut # (Auto) (1.40-6.50) K/uL Lymph # (Auto) (1.2-3.4) K/uL Addison # (Auto) (0.11-0.59) K/uL Eos # (Auto) (0-0.50) K/uL Baso # (Auto) (0-0.2) K/uL Immature Gran # (Auto) (0.01-0.20) K/uL PT 11.4 (9.0-12.0) Seconds INR 1.0 (0.9-1.1) APTT 26.4 (21.0-31.0) Seconds PTT Ratio 0.9 Sodium (136-145) mmol/L Potassium (3.5-5.1) mmol/L Chloride (98-107) mmol/L Carbon Dioxide (21-32) mmol/L Anion Gap (3-11) BUN (6-23) mg/dl Creatinine (0.6-1.4) mg/dl Est Cr Clr Drug Dosing ml/min Est GFR ( Amer) ml/min Est GFR (Non-Af Amer) ml/min BUN/Creatinine Ratio (10-20) Glucose (70-99(Fasting)) mg/dl Calcium (8.6-10.3) mg/dl Magnesium (1.7-2.4) mg/dl Total Bilirubin (0.2-1.0) mg/dl AST (13-39) U/L ALT (7-52) U/L Alkaline Phosphatase (34-104) U/L Troponin I High Sens (0-20) pg/ml B-Natriuretic Peptide 58 (0-100) pg/ml Total Protein (6.0-8.3) gm/dl Albumin (3.4-5.0) gm/dl Globulin (2.5-4.0) gm/dl Albumin/Globulin Ratio (0.9-2) Procalcitonin (0-0.5) ng/ml SARS-CoV-2, RNA, NAAT NEGATIVE (NEGATIVE) Administered Medications Discontinued Medications Furosemide (Furosemide 40 Mg/4 Ml Vial) 40 mg IV ONE ONE Stop: 10/04/22 01:36 Last Admin: 10/04/22 02:03 Dose: Not Given Documented By: GERMÁN Ceftriaxone Sodium (Rocephin) 2,000 mg in 70 mls @ 140 mls/hr IV NOW STA Stop: 10/04/22 00:26 Last Infusion: 10/04/22 00:56 Dose: 0 mls/hr Documented By: Admin: 10/04/22 00:21 Dose: 140 mls/hr Documented By: GERMÁN Imaging Data Radiologist's Impression: Venous Doppler Study 10/03/22 21:46 Exam(s): US VENOUS BILATERAL LOWER EXTREMITIES EXAM: US Duplex Bilateral Lower Extremities Veins CLINICAL HISTORY: Reason for exam: edema. TECHNIQUE: Real-time duplex ultrasound scan of the bilateral lower extremity veins integrating B-mode two-dimensional vascular structure, Doppler spectral analysis, color flow Doppler imaging and compression. COMPARISON: Examination of the left lower extremity is dated 05/13/22 FINDINGS: Right deep veins: Unremarkable. No DVT in the right common femoral, femoral, proximal deep femoral or popliteal veins. The veins demonstrate normal color flow, are normally compressible, with normal phasic flow and/or augmentation response. Right superficial veins: Unremarkable. No thrombus in the visualized right great saphenous vein. Left deep veins: Unremarkable. No DVT in the left common femoral, femoral, proximal deep femoral or popliteal veins. The veins demonstrate normal color flow, are normally compressible, with normal phasic flow and/or augmentation response. Left superficial veins: Unremarkable. No thrombus in the visualized left great saphenous vein. Soft tissues: No acute findings. No popliteal cyst. IMPRESSION: Normal bilateral lower extremity duplex venous ultrasound. Electronically signed by: Martinez Aguilar MD 10/04/22 01:[address] 10/04/22 02:07 Exam(s): CT EXTREMITY LEFT LOWER Without Contrast EXAM: CT Left Lower Extremity Without Intravenous Contrast CLINICAL HISTORY: Reason for exam: recurrent leg swelling. TECHNIQUE: Axial computed tomography images of the left lower extremity without intravenous contrast. Automated exposure control was utilized for the study. A dose lowering technique was utilized adhering to the principles of ALARA. COMPARISON: No relevant prior studies available. FINDINGS: Bones/joints: Degenerative joint disease of the left knee joint most prominent involving the medial compartment. No dislocation. No acute osseous abnormalities. Soft tissues: Extensive subcutaneous edema and chronic skin thickening likely secondary to venous insufficiency as there are prominent varicosities present within the medial distal thigh and calf. No focal fluid collection is identified. No deep muscle involvement. IMPRESSION: Extensive subcutaneous edema and chronic skin thickening likely secondary to venous insufficiency as there are prominent varicosities present within the medial distal thigh and calf. Further evaluation for venous reflux is recommended. Electronically signed by: Yohan Valdivia M.D. 10/04/22 03:28 AM Discharge Plan Visit Data Chief Complaint: Leg Injury/Pain Stated Complaint: LEFT LEG PAIN ED Provider: Delfino Manzano ED Midlevel Provider: Alanna Lockhart Discharge Problem: Cellulitis of left leg, Tachycardia, Edema of both lower extremities Patient Disposition: Admitted As Inpatient Discharge Instructions Interventions: ED Discharge Assessment Last Done: 10/04/22 03:12
[2022-10-03 22:40] LABS: BUN Creatinine Ratio 30.3 (10-20); Bilirubin,Total 0.3 mg/dl (0.2-1.0); Calcium 9.2 mg/dl (8.6-10.3); Creatinine Clr Calc Pharmacy 56.7 ml/min; Est GFR (African American) 41.8 ml/min; Est GFR (Non-African American) 36.1 ml/min; Globulin 3.9 gm/dl (2.5-4.0); Magnesium 2.2 mg/dl (1.7-2.4); Potassium 4.3 mmol/L (3.5-5.1); Total Protein 7.9 gm/dl (6.0-8.3)
[2022-10-03 22:46] LABS: Troponin I High Sensitivity 7.4 pg/ml (0-20)
[2022-10-03 23:41] LABS: Basophils # (auto) 0.06 K/uL (0-0.2); Basophils % (auto) 0.9 %; Eosinophils # (auto) 0.32 K/uL (0-0.50); Eosinophils % (auto) 4.7 %; Hematocrit (blood only) 35.6 % (42.0-52.0); Hemoglobin 11.6 g/dl (14.0-18.0); Immature Granulocytes # (auto) 0.02 K/uL (0.01-0.20); Immature Granulocytes % (auto) 0.3 %; Lymphocytes # (auto) 1.09 K/uL (1.2-3.4); Lymphocytes % (auto) 16.1 %; Mean Corpuscular Hemoglobin 30.1 pg (25.0-34.0); Mean Corpuscular Hgb Conc 32.6 g/dL (32.0-36.0); Mean Corpuscular Volume 92.2 fL (80.0-100.0); Mean Platelet Volume 10.8 fL (9.4-12.4); Monocytes # (auto) 0.72 K/uL (0.11-0.59); Monocytes % (auto) 10.6 %; Neutrophils # (auto) 4.58 K/uL (1.40-6.50); Neutrophils % (auto) 67.4 %; Platelet Count 207 K/uL (130-400); RDW Coefficient of Variation 15.1 % (11.5-14.5); RDW Standard Deviation 51.4 fL (36.4-46.3); Red Blood Count 3.86 M/uL (4.70-6.10); White Blood Count 6.79 K/ul (4.8-10.8)
[2022-10-03] MEDS ORDERED: cefTRIAXone SODIUM 2,000 MG/70 ML BAG IV STA (23:57)
[2022-10-04 00:09] LABS: Partial Thromboplastin Ratio 0.9; Partial Thromboplastin Time 26.4 Seconds (21.0-31.0); Prothrombin Time 11.4 Seconds (9.0-12.0)
--- NOTE | 2022-10-04 01:22 | Ultrasound Report ---
Exam(s): US VENOUS BILATERAL LOWER EXTREMITIES EXAM: US Duplex Bilateral Lower Extremities Veins CLINICAL HISTORY: Reason for exam: edema. TECHNIQUE: Real-time duplex ultrasound scan of the bilateral lower extremity veins integrating B-mode two-dimensional vascular structure, Doppler spectral analysis, color flow Doppler imaging and compression. COMPARISON: Examination of the left lower extremity is dated 05/13/22 FINDINGS: Right deep veins: Unremarkable. No DVT in the right common femoral, femoral, proximal deep femoral or popliteal veins. The veins demonstrate normal color flow, are normally compressible, with normal phasic flow and/or augmentation response. Right superficial veins: Unremarkable. No thrombus in the visualized right great saphenous vein. Left deep veins: Unremarkable. No DVT in the left common femoral, femoral, proximal deep femoral or popliteal veins. The veins demonstrate normal color flow, are normally compressible, with normal phasic flow and/or augmentation response. Left superficial veins: Unremarkable. No thrombus in the visualized left great saphenous vein. Soft tissues: No acute findings. No popliteal cyst. IMPRESSION: Normal bilateral lower extremity duplex venous ultrasound. Electronically signed by: Martinez Aguilar MD 10/04/22 01:21 AM
[2022-10-04] MEDS ORDERED: FUROSEMIDE 40 MG/4 ML VIAL IV ONE (01:35)
[2022-10-04] MEDS ORDERED: ALBUMIN 25% 25 GM/100 ML VIAL IV ONE (01:40)
--- NOTE | 2022-10-04 02:10 | History & Physical Report ---
Date of Service October 04, 2022 Assessment & Plan (1) Cellulitis: Plan: Recurrent LLE cellulitis hx chronic LE venous stasis/lymphedema rule out abscess/osteomyelitis No sepsis for now Acute on chronic anemia, hemoglobin drop from baseline possibly from LLE bleeding wound ARF, documented on outpatient blood work a few days ago chronic diastolic failure (EF 60%, TTE 2021), patient on the dry side severe , [place] [facility] [place] nonocclusive CAD as per records/PVD hypertension, BP on the lower side hyperlipidemia on statin Rx DM2 diet-controlled, well-controlled as of recent hemoglobin A1c of 7 last July 2022 hypothyroidism, recent outpatient TSH slightly elevated past history DVT as per records learning disability as per records OBS Medical telemetry given mild tachycardia CS, Cefepime CT left lower leg to rule out abscess May need MRI to definitely rule out osteomyelitis given recurrent infections if CT unremarkable Wound care nurse consult Anemia work-up, follow H&H, transfuse PRBC if hemoglobin less than 8 and for symptomatic anemia Baseline UA, monitor creatinine response to IV albumin given propensity for congestion Hold DAISY inhibitor and home diuretic for now until creatinine back to baseline Renal ultrasound, nephrology consult developed improvement ISS BG goal 1 10-1 40, carb count coverage DVT prophylaxis. SCDs Re: Bleeding LE wound Full code Text document was generated using [employer] voice recognition software. It may contain grammatical or spelling errors. Kindly contact undersigned for clarification of any documentation item in question. History of Present Illness Chief Complaint: Worsening left leg swelling Primary Care Provider: Jean-Pierre Portillo MD History obtained from patient and records. Medical history significant for chronic diastolic failure (EF 60%, TTE 2021), severe , nonocclusive CAD as per records, PVD, hypertension, hyperlipidemia, DM2 diet-controlled, hypothyroidism, chronic LE venous stasis, chronic anemia (baseline hemoglobin of 13), past history DVT as per records, learning disability as per records. Last confinement May 2022 for LLE cellulitis in the setting of chronic venous stasis dermatitis. No significant growth on CS. Patient discharged on oral Keflex course. Nocturnal hypoxemia noted during confinement. Patient placed on 2 L O2 at night. Outpatient sleep study recommended. Patient completed outpatient Keflex course for recurrent left lower extremity cellulitis last July 2022. 2 weeks ago, patient noted current left lower extremity swelling without chest pain or SOB or weight gain. Patient noted bleeding after scratching the left lower leg. No fever, no chills. Medical History as above Surgical History : Tonsillectomy Family History : Bladder cancer, heart disease Personal/Social history : Non-smoker, no EtOH intake, disabled Allergies Allergy/AdvReac Type Severity Reaction Status Date / Time doxycycline Allergy Intermediate Rash Verified 10/03/22 23:12 losartan [From Cozaar] Allergy Intermediate Rash Verified 10/03/22 23:12 Penicillins Allergy Intermediate Hives Verified 10/03/22 23:12 valsartan Allergy Intermediate Rash Verified 10/03/22 23:12 Home Medications Medication Instructions Recorded Confirmed Type metoprolol tartrate 50 mg tablet 50 mg PO BID #60 tabs 12/25/20 10/03/22 Rx loratadine 10 mg tablet (Claritin) 10 mg PO QAM 02/16/21 10/03/22 History magnesium oxide 400 mg PO QAM 02/16/21 10/03/22 History multivitamin 1 tab PO QAM 02/16/21 10/03/22 History omeprazole 20 mg tablet,delayed 20 mg PO QAM 02/16/21 10/03/22 History release rosuvastatin 10 mg tablet (Crestor) 10 mg PO QAM 12/29/21 10/03/22 History ammonium lactate 12 % lotion 1 applic topical BID #225 grams 05/17/22 10/03/22 Rx furosemide 40 mg tablet 40 mg PO BID 07/12/22 10/03/22 History lisinopril 10 mg tablet 10 mg PO DAILY 07/12/22 10/03/22 History spironolactone 25 mg tablet 25 mg PO DAILY 07/12/22 10/03/22 History (Aldactone) levothyroxine 100 mcg tablet 100 mcg PO DAILYBB 10/03/22 10/03/22 History Past Med/Surg History Medical History Aortic root enlargement Under surveillance by [facility] cardio Aortic valve stenosis borderline severe, echo every 6 months per [facility] cardio Ascending aortic aneurysm moderate 4.5 cm Chronic venous stasis dermatitis GERD (gastroesophageal reflux disease) Hyperlipidemia Hypertension Intellectual disability needs help with meds/someone cleans house for him Morbid obesity with BMI of 45.0-49.9, adult Type 2 diabetes mellitus diet controlled, no meds, dx listed in [facility] records Surgical History History of esophagogastroduodenoscopy (EGD) History of tonsillectomy S/P colonoscopy S/P endoscopy EUS ([facility] 12/2021) inconclusive findings. Family History Other No family history of adverse response to anesthesia Social History Smoking Status: Never smoker Second Hand Exposure: No; Do You Dip or Chew Tobacco: No; Hx Alcohol Use: No Hx Substance Use: No Preferred Language: Wolof Communication Ability: Effective Communication Ability Comment: pt is able to sign own consents Visual Impairment: No Limitations Hearing Ability: Normal Body And Fender Worker Required: No Beliefs That Will Affect Care: None marital status: Single Current Living Situation: Alone Current Living Situation Comment: BILL [facility]ATICA COMES TO VISIT DAILY- HAS HELP CLEANING How many Children do You have: 0 Feels Safe at Home: Yes Diet: low salt caffeine: No Assistive Devices: Walker Review of Systems Review of Systems: As per HPI, all other systems reviewed and negative Physical Exam Physical Exam: GENERAL: Comfortable, morbidly obese, no respiratory distress SKIN: Normal color, warm HEENT: [place] palpebral conjunctivae, no ptosis, dry buccal mucosa NECK : Supple, short neck, no tenderness CHEST : CTA, no tenderness HEART : Tachycardic, systolic murmur over precordium, obliterated S2 ABDOMEN: Some distention, nontender EXTREMITIES : Bilateral LE swelling (left greater than the right), minimal LE tenderness, no other conspicuous deformities noted NEUROLOGIC : Coherent, no facial asymmetry, no other gross focality Results & Data Results & Data Vital Signs (Past 12 Hours) Vital Signs Temp Pulse Pulse Resp BP BP Pulse Ox 10/04/22 00:30 102 H 16 110/74 99 10/03/22 22:30 104 H 16 105/72 99 10/03/22 20:30 36.7 C 101 H 18 126/82 97 O2 Del Method 10/04/22 00:30 Room Air 10/03/22 22:30 Room Air 10/03/22 20:30 Room Air Laboratory Results Laboratory Results WBC 6.79 K/ul (4.8-10.8) 10/03/22 23:15 RBC 3.86 M/uL (4.70-6.10) L 10/03/22 23:15 Hgb 11.6 g/dl (14.0-18.0) L 10/03/22 23:15 Hct 35.6 % (42.0-52.0) L 10/03/22 23:15 MCV 92.2 fL (80.0-100.0) 10/03/22 23:15 MCH 30.1 pg (25.0-34.0) 10/03/22 23:15 MCHC 32.6 g/dL (32.0-36.0) 10/03/22 23:15 RDW Std Deviation 51.4 fL (36.4-46.3) H 10/03/22 23:15 RDW Coeff of Analy 15.1 % (11.5-14.5) H 10/03/22 23:15 Plt Count 207 K/uL (130-400) 10/03/22 23:15 MPV 10.8 fL (9.4-12.4) 10/03/22 23:15 Immature Gran % (Auto) 0.3 % 10/03/22 23:15 Neut % (Auto) 67.4 % 10/03/22 23:15 Lymph % (Auto) 16.1 % 10/03/22 23:15 [place] % (Auto) 10.6 % 10/03/22 23:15 Eos % (Auto) 4.7 % 10/03/22 23:15 Baso % (Auto) 0.9 % 10/03/22 23:15 Neut # (Auto) 4.58 K/uL (1.40-6.50) 10/03/22 23:15 Lymph # (Auto) 1.09 K/uL (1.2-3.4) L 10/03/22 23:15 [place] # (Auto) 0.72 K/uL (0.11-0.59) H 10/03/22 23:15 Eos # (Auto) 0.32 K/uL (0-0.50) 10/03/22 23:15 Baso # (Auto) 0.06 K/uL (0-0.2) 10/03/22 23:15 Immature Gran # (Auto) 0.02 K/uL (0.01-0.20) 10/03/22 23:15 PT 11.4 Seconds (9.0-12.0) 10/03/22 23:15 INR 1.0 (0.9-1.1) 10/03/22 23:15 APTT 26.4 Seconds (21.0-31.0) 10/03/22 23:15 PTT Ratio 0.9 10/03/22 23:15 Sodium 138 mmol/L (136-145) 10/03/22 20:33 Potassium 4.3 mmol/L (3.5-5.1) 10/03/22 20:33 Chloride 106 mmol/L (98-107) 10/03/22 20:33 Carbon Dioxide 23 mmol/L (21-32) 10/03/22 20:33 Anion Gap 9 (3-11) 10/03/22 20:33 BUN 59 mg/dl (6-23) H 10/03/22 20:33 Creatinine 1.95 mg/dl (0.6-1.4) H 10/03/22 20:33 Est Cr Clr Drug Dosing 56.7 ml/min 10/03/22 20:33 Est GFR ( Amer) 41.8 ml/min 10/03/22 20:33 Est GFR (Non-Af Amer) 36.1 ml/min 10/03/22 20:33 BUN/Creatinine Ratio 30.3 (10-20) H 10/03/22 20:33 Glucose 104 mg/dl (70-99(Fasting)) H 10/03/22 20:33 Calcium 9.2 mg/dl (8.6-10.3) 10/03/22 20:33 Magnesium 2.2 mg/dl (1.7-2.4) 10/03/22 20:33 Total Bilirubin 0.3 mg/dl (0.2-1.0) 10/03/22 20:33 AST 23 U/L (13-39) 10/03/22 20:33 ALT 17 U/L (7-52) 10/03/22 20:33 Alkaline Phosphatase 70 U/L (34-104) 10/03/22 20:33 Troponin I High Sens 7.4 pg/ml (0-20) 10/03/22 20:33 B-Natriuretic Peptide 58 pg/ml (0-100) 10/03/22 23:15 Total Protein 7.9 gm/dl (6.0-8.3) 10/03/22 20:33 Albumin 4.0 gm/dl (3.4-5.0) 10/03/22 20:33 Globulin 3.9 gm/dl (2.5-4.0) 10/03/22 20:33 Albumin/Globulin Ratio 1.0 (0.9-2) 10/03/22 20:33 Procalcitonin < 0.05 ng/ml (0-0.5) 10/03/22 21:46 SARS-CoV-2, RNA, NAAT NEGATIVE (NEGATIVE) 10/03/22 23:15 Impressions Venous Doppler Study 10/03/22 21:46 Exam(s): US VENOUS BILATERAL LOWER EXTREMITIES EXAM: US Duplex Bilateral Lower Extremities Veins CLINICAL HISTORY: Reason for exam: edema. TECHNIQUE: Real-time duplex ultrasound scan of the bilateral lower extremity veins integrating B-mode two-dimensional vascular structure, Doppler spectral analysis, color flow Doppler imaging and compression. COMPARISON: Examination of the left lower extremity is dated 05/13/22 FINDINGS: Right deep veins: Unremarkable. No DVT in the right common femoral, femoral, proximal deep femoral or popliteal veins. The veins demonstrate normal color flow, are normally compressible, with normal phasic flow and/or augmentation response. Right superficial veins: Unremarkable. No thrombus in the visualized right great saphenous vein. Left deep veins: Unremarkable. No DVT in the left common femoral, femoral, proximal deep femoral or popliteal veins. The veins demonstrate normal color flow, are normally compressible, with normal phasic flow and/or augmentation response. Left superficial veins: Unremarkable. No thrombus in the visualized left great saphenous vein. Soft tissues: No acute findings. No popliteal cyst. IMPRESSION: Normal bilateral lower extremity duplex venous ultrasound. Electronically signed by: Martinez Aguilar MD 10/04/22 01:21 AM Diagnostic Findings Chest x-ray as per interpretation, cardiomegaly, atelectasis EKG as per my interpretation : (1) Cellulitis Laterality: left Site of cellulitis: extremity Site of cellulitis of extremity: lower extremity Qualified Code(s): L03.116 - Cellulitis of left lower limb
[2022-10-04] MEDS ORDERED: CEFEPIME 2,000 MG/20 ML VIAL IV STA (02:23)
[2022-10-04 02:46] LABS: Appearance Urine Clear (Clear); Bacteria Urine Automated Negative (Negative); Bilirubin Urine Negative (Negative); Blood Urine Negative (Negative); Color Urine Yellow; Epithelial Cell Urine Auto >30 /lpf (0-5); Glucose Urine UA Negative (Negative); Ketones Urine Negative (Negative); Leukocyte Esterase Urine Negative (Negative); Nitrite Urine Negative (Negative); Protein Urine Trace (Negative); RBC Urine Automated 0-4 /hpf (0-4); Specific Gravity Urine 1.012 (1.000-1.030); Urobilinogen Urine Negative (Negative); pH Urine 5.5 (4.5-7.5)
[2022-10-04] MEDS ORDERED: PROMETHAZINE HCL 12.5 MG in SODIUM CHLORIDE 0.9% 50 ML IV PRN (03:26)
[2022-10-04] MEDS ORDERED: traMADol HCL 50 MG TABLET PO PRN (03:26)
[2022-10-04] MEDS ORDERED: CARBOHYDRATES FOR HYPOGLYCEMIA PO PRN (03:26)
[2022-10-04] MEDS ORDERED: DEXTROSE 50% 50 ML SYRINGE IV PRN (03:26)
[2022-10-04] MEDS ORDERED: GLUCAGON FOR INJ 1 MG VIAL SQ PRN (03:26)
[2022-10-04] MEDS ORDERED: ACETAMINOPHEN 325 MG TAB PO PRN (03:26)
[2022-10-04] MEDS ORDERED: GLUCOSE 10 TAB/TUBE PO PRN (03:26)
[2022-10-04] MEDS ORDERED: GLUCOSE 40% GEL 15 GM TUBE PO PRN (03:26)
--- NOTE | 2022-10-04 03:29 | CT Scan Report ---
Exam(s): CT EXTREMITY LEFT LOWER Without Contrast EXAM: CT Left Lower Extremity Without Intravenous Contrast CLINICAL HISTORY: Reason for exam: recurrent leg swelling. TECHNIQUE: Axial computed tomography images of the left lower extremity without intravenous contrast. Automated exposure control was utilized for the study. A dose lowering technique was utilized adhering to the principles of ALARA. COMPARISON: No relevant prior studies available. FINDINGS: Bones/joints: Degenerative joint disease of the left knee joint most prominent involving the medial compartment. No dislocation. No acute osseous abnormalities. Soft tissues: Extensive subcutaneous edema and chronic skin thickening likely secondary to venous insufficiency as there are prominent varicosities present within the medial distal thigh and calf. No focal fluid collection is identified. No deep muscle involvement. IMPRESSION: Extensive subcutaneous edema and chronic skin thickening likely secondary to venous insufficiency as there are prominent varicosities present within the medial distal thigh and calf. Further evaluation for venous reflux is recommended. Electronically signed by: Yohan Valdivia M.D. 10/04/22 03:28 AM
[2022-10-04] MEDS: INSULIN ASPART PER UNIT CHARGE SC SCH ×4 (04:33→21:42)
[2022-10-04] MEDS: CEFEPIME 2,000 MG in SYRINGE 0 ML IV SCH ×2 (04:33→17:15)
[2022-10-04] MEDS: LEVOTHYROXINE SODIUM 100 MCG TABLET PO SCH (06:35)
[2022-10-04 06:38] LABS: Basophils # (auto) 0.04 K/uL (0-0.2); Basophils % (auto) 0.7 %; Eosinophils # (auto) 0.31 K/uL (0-0.50); Eosinophils % (auto) 5.3 %; Hematocrit (blood only) 34.6 % (42.0-52.0); Hemoglobin 11.5 g/dl (14.0-18.0); Immature Granulocytes # (auto) 0.01 K/uL (0.01-0.20); Immature Granulocytes % (auto) 0.2 %; Lymphocytes # (auto) 1.17 K/uL (1.2-3.4); Mean Corpuscular Hemoglobin 30.5 pg (25.0-34.0); Mean Corpuscular Hgb Conc 33.2 g/dL (32.0-36.0); Mean Corpuscular Volume 91.8 fL (80.0-100.0); Mean Platelet Volume 10.8 fL (9.4-12.4); Monocytes # (auto) 0.53 K/uL (0.11-0.59); Neutrophils % (auto) 64.8 %; Platelet Count 193 K/uL (130-400); RDW Coefficient of Variation 15.1 % (11.5-14.5); RDW Standard Deviation 50.8 fL (36.4-46.3); Red Blood Count 3.77 M/uL (4.70-6.10); Reticulocyte % 1.8 % (0.5-2.0); Reticulocytes # 0.07 10^6/uL (0.02-0.10); White Blood Count 5.86 K/ul (4.8-10.8)
[2022-10-04 06:47] LABS: BUN Creatinine Ratio 37.2 (10-20); Calcium 8.8 mg/dl (8.6-10.3); Est GFR (African American) 58.4 ml/min; Est GFR (Non-African American) 50.3 ml/min; Potassium 3.7 mmol/L (3.5-5.1)
[2022-10-04 07:06] LABS: Ferritin 98.1 ng/ml (8-388)
--- NOTE | 2022-10-04 07:55 | XRay Report ---
SINGLE VIEW CHEST CLINICAL HISTORY: Edema. FINDINGS: An AP, portable, upright chest radiograph is compared to study dated 05/13/2022. The examina tion is degraded by portable technique and apical lordotic positioning. The cardiomediastinal silhoue tte is unremarkable. The lungs and pleural spaces are clear noting bibasilar scarring/atelectasis. No pneumothorax is seen. The bony thorax is grossly intact. IMPRESSION: No active disease in the chest. ACT 112: Negative or not required by law. Electronically signed by: Jurgen Palmer M.D. 10/04/2022 7:54 AM
[2022-10-04] MEDS: ALBUMIN 25% 25 GM/100 ML VIAL IV SCH ×2 (08:01→17:15)
[2022-10-04] MEDS: ROSUVASTATIN CALCIUM 10 MG TAB PO SCH (09:16)
[2022-10-04] MEDS: METOPROLOL TARTRATE 50 MG TAB PO SCH ×2 (09:16→21:44)
[2022-10-04] MEDS: LORATADINE 10 MG TAB PO SCH (09:16)
[2022-10-04] MEDS: PANTOprazole 40 MG TAB PO SCH (09:16)
[2022-10-04] MEDS: MULTIVITAMIN TAB PO SCH (09:16)
--- NOTE | 2022-10-04 14:23 | Communication Note ---
Date of Service: October 04, 2022 Patient was seen and examined at bedside. He was admitted earlier this morning for recurrent left lower extremity leg is with history of chronic bilateral lower extremity lymphedema/venous stasis. CT lower extremity shows extensive subcutaneous edema and chronic skin thickening likely secondary to venous insufficiency as there are prominent varicosities present within the medial distal thigh and calf. Ultrasound lower extremity with no DVT. He is on empiric cefepime pending blood and wound culture results. He is afebrile, hemodynamically stable and does not look septic. No leukocytosis. DEMARIO is improving with fluids and holding of home DAISY inhibitors and home diuretics. Follow wound for clinical improvement and culture results for further antibiotic management. Wound care has been consulted. Detailed note will be written by the hospitalist tomorrow.
[2022-10-04] MEDS: HEPARIN SOD 5,000 UNIT/0.5 ML VIAL SQ SCH (21:44)
[2022-10-05] MEDS: ALBUMIN 25% 25 GM/100 ML VIAL IV SCH ×4 (00:12→23:58)
[2022-10-05] MEDS: CEFEPIME 2,000 MG in SYRINGE 0 ML IV SCH (03:56)
[2022-10-05] MEDS: HEPARIN SOD 5,000 UNIT/0.5 ML VIAL SQ SCH ×3 (05:53→21:11)
[2022-10-05] MEDS: LEVOTHYROXINE SODIUM 100 MCG TABLET PO SCH (05:53)
[2022-10-05 07:21] LABS: Hematocrit (blood only) 35.6 % (42.0-52.0); Hemoglobin 11.4 g/dl (14.0-18.0); Mean Corpuscular Hemoglobin 29.9 pg (25.0-34.0); Mean Corpuscular Volume 93.4 fL (80.0-100.0); Mean Platelet Volume 10.8 fL (9.4-12.4); Platelet Count 210 K/uL (130-400); RDW Coefficient of Variation 15.3 % (11.5-14.5); Red Blood Count 3.81 M/uL (4.70-6.10)
[2022-10-05 07:51] LABS: BUN Creatinine Ratio 28.1 (10-20); C Reactive Protein 3.97 mg/dl (0-0.5); Calcium 9.9 mg/dl (8.6-10.3); Creatinine Clr Calc Pharmacy 95.3 ml/min; Potassium 4.3 mmol/L (3.5-5.1)
[2022-10-05] MEDS: INSULIN ASPART PER UNIT CHARGE SC SCH ×4 (08:05→21:14)
[2022-10-05] MEDS: MULTIVITAMIN TAB PO SCH (08:54)
[2022-10-05] MEDS: METOPROLOL TARTRATE 50 MG TAB PO SCH ×2 (08:54→21:12)
[2022-10-05] MEDS: PANTOprazole 40 MG TAB PO SCH (08:54)
[2022-10-05] MEDS: LORATADINE 10 MG TAB PO SCH (08:54)
[2022-10-05] MEDS: ROSUVASTATIN CALCIUM 10 MG TAB PO SCH (08:54)
--- NOTE | 2022-10-05 12:53 | Hospitalist Progress Note ---
Date of Service October 05, 2022 Assessment & Plan (1) Cellulitis: Plan: Recurrent LLE cellulitis hx chronic LE venous stasis/lymphedema Patient presents with bilateral lower extremity swelling. CT leg of left extremity reviewed; extensive subcu edema and chronic skin thickening present. Venous duplex results reviewed; no DVT Labs reviewed from today; no leukocytosis. ESR elevated to 53 CRP elevated to 3.97 Will change cefepime to ceftriaxone. Continue wound care and leg elevation. Acute kidney injury likely prerenal Creatinine elevated to 1.95 on admission; down trended to 1.15 today with hydration Avoid nephrotoxic agents Currently, Lasix, lisinopril and spironolactone are on hold. Chronic conditions; Acute on chronic anemia, hemoglobin drop from baseline possibly from LLE bleeding wound chronic diastolic failure (EF 60%, TTE 2021); appears compensated. Holding off on lisinopril, spironolactone and Lasix for today. severe , patient preparing for [facility] at [facility] [place] hx nonocclusive CAD as per records/PVD hypertension,monitor for now. Antihypertensive on hold due to DEMARIO. hyperlipidemia on statin Rx DM2 diet-controlled, well-controlled as of recent hemoglobin A1c of 7 last July 2022 hypothyroidism, recent outpatient TSH slightly elevated past history DVT as per records learning disability as per records VTE prophylaxis heparin Please note the above document was generated using voice recognition software. It may contain grammatical, syntax or spelling errors. Any formal questions or concerns about the content, text or information contained within the body of this dictation should be directly addressed to the provider for clarification Admission and Anticipated Discharge Date Admission Date: October 04, 2022 Subjective Patient seen and examined at bedside. He reports that the leg pain swelling and redness has slightly improved compared to admission. Afebrile overnight. Hemodynamic stable. Review of Systems Review of Systems: All systems reviewed & are unremarkable except as noted in Subjective Physical Exam Physical Exam: Constitutional: Awake, alert orient x3. Morbidly obese. Respiratory: normal respiratory effort, lungs clear to auscultation, no wheeze, rales, rhonchi. Normal insp/exp effort, no accessory muscle use Cardiovascular: RRR, no murmur, no edema Vessels: no JVD or carotid bruit Chest: normal inspection of chest Abdomen: normal bowel sounds, soft, nontender, no hepatosplenomegaly Musculoskeletal: Bilateral lower extremity swelling, chronic skin changes on left leg. Slight increase in warmth and tenderness on left leg. Skin: no rashes, warm and dry normal turgor Neurologic: PERRL, EOMI, accommodation nl, no face palsy, no dysarthria CN's II- XI intact bilaterally and moves all extremities Psychiatric: A+Ox3, euthymic affect Results & Data Results & Data Vital Signs (Past 12 Hours) Vital Signs Temp Pulse Pulse Resp BP BP Pulse Ox 10/05/22 06:00 98 H 10/05/22 11:11 36.8 C 90 18 124/85 96 10/05/22 07:17 36.6 C 91 H 20 116/82 95 10/05/22 03:17 36.9 C 94 H 20 122/75 95 O2 Del Method 10/05/22 06:00 10/05/22 11:11 Room Air 10/05/22 07:17 Room Air 10/05/22 03:17 Room Air (1) Cellulitis Laterality: left Site of cellulitis: extremity Site of cellulitis of extremity: lower extremity Qualified Code(s): L03.116 - Cellulitis of left lower limb
[2022-10-05] MEDS: cefTRIAXone SODIUM 2,000 MG in DEXTROSE 5% 50 ML IV SCH (12:55)
[2022-10-06] MEDS: HEPARIN SOD 5,000 UNIT/0.5 ML VIAL SQ SCH ×2 (05:41→14:06)
[2022-10-06] MEDS: LEVOTHYROXINE SODIUM 100 MCG TABLET PO SCH (05:41)
[2022-10-06 07:21] LABS: Basophils # (auto) 0.05 K/uL (0-0.2); Eosinophils # (auto) 0.25 K/uL (0-0.50); Eosinophils % (auto) 4.8 %; Hematocrit (blood only) 34.5 % (42.0-52.0); Hemoglobin 11.1 g/dl (14.0-18.0); Immature Granulocytes # (auto) 0.01 K/uL (0.01-0.20); Immature Granulocytes % (auto) 0.2 %; Lymphocytes # (auto) 1.42 K/uL (1.2-3.4); Lymphocytes % (auto) 27.4 %; Mean Corpuscular Hemoglobin 30.2 pg (25.0-34.0); Mean Corpuscular Hgb Conc 32.2 g/dL (32.0-36.0); Mean Platelet Volume 10.8 fL (9.4-12.4); Monocytes # (auto) 0.38 K/uL (0.11-0.59); Monocytes % (auto) 7.3 %; Neutrophils # (auto) 3.08 K/uL (1.40-6.50); Neutrophils % (auto) 59.3 %; Platelet Count 187 K/uL (130-400); RDW Coefficient of Variation 15.4 % (11.5-14.5); Red Blood Count 3.67 M/uL (4.70-6.10); White Blood Count 5.19 K/ul (4.8-10.8)
[2022-10-06] MEDS: INSULIN ASPART PER UNIT CHARGE SC SCH ×3 (08:21→17:59)
[2022-10-06] MEDS: MULTIVITAMIN TAB PO SCH (08:22)
[2022-10-06] MEDS: ROSUVASTATIN CALCIUM 10 MG TAB PO SCH (08:22)
[2022-10-06] MEDS: ALBUMIN 25% 25 GM/100 ML VIAL IV SCH ×2 (08:22→17:59)
[2022-10-06] MEDS: PANTOprazole 40 MG TAB PO SCH (08:22)
[2022-10-06] MEDS: LORATADINE 10 MG TAB PO SCH (08:22)
[2022-10-06] MEDS: METOPROLOL TARTRATE 50 MG TAB PO SCH (08:22)
[2022-10-06 08:52] LABS: Calcium 10.2 mg/dl (8.6-10.3); Potassium 4.4 mmol/L (3.5-5.1)
[2022-10-06 08:57] LABS: BUN Creatinine Ratio 27.6 (10-20); Est GFR (African American) 96.1 ml/min; Est GFR (Non-African American) 82.9 ml/min
--- NOTE | 2022-10-06 13:03 | Discharge Summary ---
Date of Service October 06, 2022 Admission HPI Per Admitting Provider History obtained from patient and records. Medical history significant for chronic diastolic failure (EF 60%, TTE 2021), severe , nonocclusive CAD as per records, PVD, hypertension, hyperlipidemia, DM2 diet-controlled, hypothyroidism, chronic LE venous stasis, chronic anemia (baseline hemoglobin of 13), past history DVT as per records, learning disability as per records. Last confinement May 2022 for LLE cellulitis in the setting of chronic venous stasis dermatitis. No significant growth on CS. Patient discharged on oral Keflex course. Nocturnal hypoxemia noted during confinement. Patient placed on 2 L O2 at night. Outpatient sleep study recommended. Patient completed outpatient Keflex course for recurrent left lower extremity cellulitis last July 2022. 2 weeks ago, patient noted current left lower extremity swelling without chest pain or SOB or weight gain. Patient noted bleeding after scratching the left lower leg. No fever, no chills. Medical History as above Surgical History : Tonsillectomy Family History : Bladder cancer, heart disease Personal/Social history : Non-smoker, no EtOH intake, disabled Admission Exam Per Admitting Provider GENERAL: Comfortable, morbidly obese, no respiratory distress SKIN: Normal color, warm HEENT: [place] palpebral conjunctivae, no ptosis, dry buccal mucosa NECK : Supple, short neck, no tenderness CHEST : CTA, no tenderness HEART : Tachycardic, systolic murmur over precordium, obliterated S2 ABDOMEN: Some distention, nontender EXTREMITIES : Bilateral LE swelling (left greater than the right), minimal LE tenderness, no other conspicuous deformities noted NEUROLOGIC : Coherent, no facial asymmetry, no other gross focality Principal Diagnosis Recurrent LLE cellulitis hx chronic LE venous stasis/lymphedema Acute kidney injury likely prerenal Discharge Exam Constitutional: Awake, alert orient x3. Morbidly obese. Respiratory: normal respiratory effort, lungs clear to auscultation, no wheeze, rales, rhonchi. Normal insp/exp effort, no accessory muscle use Cardiovascular: RRR, no murmur, no edema Vessels: no JVD or carotid bruit Chest: normal inspection of chest Abdomen: normal bowel sounds, soft, nontender, no hepatosplenomegaly Musculoskeletal: Bilateral lower extremity swelling, chronic skin changes on left leg. Improvement in redness/swelling. Skin: no rashes, warm and dry normal turgor Neurologic: PERRL, EOMI, accommodation nl, no face palsy, no dysarthria CN's II- XI intact bilaterally and moves all extremities Psychiatric: A+Ox3, euthymic affect Discharge Data Allergies Allergy/AdvReac Type Severity Reaction Status Date / Time doxycycline Allergy Intermediate Rash Verified 10/03/22 23:12 losartan [From Cozaar] Allergy Intermediate Rash Verified 10/03/22 23:12 Penicillins Allergy Intermediate Hives Verified 10/03/22 23:12 valsartan Allergy Intermediate Rash Verified 10/03/22 23:12 Consultations 10/04/22 01:29 ED Decision to Admit Stat Ordered Studies 10/03/22 21:46 US venous doppler LE BI Stat 10/04/22 02:07 CT tib/fib LT wo con Stat Hospital Course (1) Cellulitis: Recurrent LLE cellulitis hx chronic LE venous stasis/lymphedema Patient presents with bilateral lower extremity swelling. CT leg of left extremity reviewed; extensive subcu edema and chronic skin thickening present. Venous duplex results reviewed; no DVT Labs reviewed from today; no leukocytosis. ESR elevated to 53 CRP elevated to 3.97 Wound culture grew MSSA and group B beta strep. Patient discharged on 5 more days of Keflex to complete antibiotic course. Acute kidney injury likely prerenal Creatinine elevated to 1.95 on admission; down trended to baseline with hydration Dose of Lasix decreased to 40 mg once daily. Spironolactone and lisinopril resumed at DC Patient to follow-up with PCP All other medication continued as before Please note the above document was generated using voice recognition software. It may contain grammatical, syntax or spelling errors. Any formal questions or concerns about the content, text or information contained within the body of this dictation should be directly addressed to the provider for clarification Total Time Total Time Spent Total Time Spent (In Minutes): 45 Total Time Includes: Examination of the Patient, Discharge Planning, Medication Reconciliation, Communication With Other Providers and Other Discharge Plan Discharge Items Patient Disposition: Home - Self-Care Reason For Visit: ARF, TACHY Discharge Diagnosis: Lower extremity cellulitis Acute kidney injury Activity: Resume your previous activity Non-emergency contact: Primary Care Provider Call non-emergency contact if: you have any medication questions Follow-up/Referrals: Jean-Pierre Portillo MD [Primary Care Provider] - (Date & Time 10/11/2022 2:00 PM Provider Kristen Valdivia MD Department General Internal Medicine [facility] ) Diet: Regular Addtl Attending Provider Instructions: You are admitted to the hospital with lower extremity cellulitis. You are prescribed cephalexin 500 mg to be taken every 6 hours for 5 more days to c omplete the antibiotic course. Your Lasix dose has been decreased to 40 mg once daily due to kidney dysfunction. Please follow-up with your primary care doctor and discuss regarding the dosing of Lasix. An appointment has been set up with your primary care doctor on October 11, 2022. Pending Studies at Discharge: No Stand-Alone Forms: [facility], Smoking Cessation Medications and DC Order Prescriptions: New acetaminophen 325 mg Tablet 650 mg PO Q6H PRN (Reason: pain) Qty: 60 0RF cephalexin 500 mg capsule 500 mg PO QID 5 Days Qty: 20 0RF Continued rosuvastatin [Crestor] 10 mg Tablet 10 mg PO QAM ammonium lactate 12 % lotion 1 applic topical BID Qty: 225 0RF spironolactone [Aldactone] 25 mg Tablet 25 mg PO DAILY lisinopril 10 mg Tablet 10 mg PO DAILY metoprolol tartrate 50 mg Tablet 50 mg PO BID Qty: 60 0RF multivitamin Tablet 1 tab PO QAM loratadine [Claritin] 10 mg Tablet 10 mg PO QAM omeprazole 20 mg Tablet,Delayed Release (Dr/Ec) 20 mg PO QAM magnesium oxide 400 mg magnesium Tablet 400 mg PO QAM levothyroxine 100 mcg tablet 100 mcg PO DAILYBB Changed furosemide 40 mg tablet 40 mg PO DAILY Qty: 30 0RF Rx Instructions: 40 mg in the afternoon for any weight gain of 2 to 3 pounds. Discharge Orders: Discharge Order (Routine); Ordered 10/06/22 Ordered By: Dago Chaparro Admission Data Admit Date/Time: 10/05/22 12:52 Attending Provider: Dago Chaparro Admit Provider: Memo Zeng Primary Care Provider: Jean-Pierre Portillo Other Providers: Memo Zeng ; Adán Mancia ; [facility] Other Interventions: Discharge Summary Assessment (RN) Last Done: 10/06/22 11:57
[2022-10-06] MEDS: cefTRIAXone SODIUM 2,000 MG in DEXTROSE 5% 50 ML IV SCH (14:04)
== END 2022-10-06 18:27 | disposition home health service (06) | DRG 603 ==
LOC: ED 20:25 → 2N 20:25 → SUATTDRO 10-04 02:12 → 2N 10-04 03:12